=== PATIENT | female | born 1945 | race Caucasian/White ===

== ENCOUNTER 2016-11-16 00:11 | Inpatient (IN) | payer MEDICARE, OTHER ==
[~2016-11-16] VITALS: Ht 167.6 cm; Wt 91.3 kg
--- NOTE | 2016-11-16 02:18 | ERA ---
ER Documentation Chief Complaint Date/Time DATE: 11/16/16 TIME: 02:17 Chief Complaint both knee swelling x 1 day, absence of apettite since taking abx for uti HPI The patient is a 71-year-old female, presenting to the ER because of bilateral knee pain and bilateral leg pain for 1 day . She is being treated with Cipro and Flagyl for UTI according to her for 1 week. She complains of decreased appetite ever since he started taking the antibiotic. She denies fever, chills , neck pain, chest pain, dyspnea, abdominal pain, vomiting. She does not smoke nor drink Past medical history: Diabetes mellitus, hypertension Past surgical history: None ROS All systems reviewed and are negative except as per history of present illness. Medications Home Meds Reported Medications Cholecalciferol (Vitamin D) 400 Unit Tablet, 400 UNIT PO, TAB 11/16/16 Metronidazole* (Metronidazole*) 500 Mg Tablet, 500 MG PO TID, TAB 11/16/16 Metformin* (Glucophage*) 500 Mg Tab, 250 MG PO WITH BREAKFAST DINNE, #30 TAB 11/16/16 Losartan Potassium* (Losartan Potassium*) 25 Mg Tablet, 25 MG PO DAILY, TAB 11/16/16 Ciprofloxacin Hcl* (Ciprofloxacin Hcl*) 500 Mg Tablet, 500 MG PO BID for TK 1 TAB BIDFOR 10 DAYS, #14 TAB 11/16/16 Ibuprofen* (Ibuprofen*) 400 Mg Tablet, 400 MG PO Q6H Y for PAIN, TAB 11/16/16 Discontinued Reported Medications Ibuprofen* (Ibuprofen*) 400 Mg Tablet, 400 MG PO TID, TAB 11/16/16 Metronidazole* (Metronidazole*) 500 Mg Tablet, 500 MG PO TID, TAB 11/16/16 Allergies Allergies: Coded Allergies: No Known Allergy (Unverified , 11/16/16) PMhx/Soc Medical and Surgical Hx: pt denies Surgical Hx Hx Miscellaneous Medical Probl: Yes (diabetes, currently tx'd for UTI) Hx Alcohol Use: No Hx Substance Use: No Hx Tobacco Use: No Smoking Status: Unknown if ever smoked Physical Exam Vitals Vital Signs Date Time Temp Pulse Resp B/P Pulse Ox O2 Delivery O2 Flow Rate FiO2 11/16/16 04:21 81 20 121/63 99 Room Air 11/16/16 04:11 81 20 140/72 99 Room Air 11/16/16 00:20 100.0 94 20 131/66 99 Physical Exam Const: No acute distress. Head: Atraumatic. Eyes: Normal Conjunctiva. ENT: Normal External Ears, Nose and Mouth. Neck: Full range of motion. No meningismus. Resp: Clear to auscultation bilaterally. Cardio: Regular rate and rhythm, no murmurs. Abd: Soft, non distended, normal bowel sounds, bilateral CVA tenderness Skin: No petechiae or rashes. Back: No midline or flank tenderness. Ext: Bilateral leg edema, minimal calf tenderness, bilateral knee crepitus Neur: Awake and alert. No focal deficit Psych: Normal Mood and Affect. Result Diagram: 11/16/16 0135 11/16/16 013 Results 24 hrs Laboratory Tests Test 11/16/16 01:35 11/16/16 03:31 White Blood Count 13.810^3/ul Red Blood Count 4.5310^6/ul Hemoglobin 11.6g/dl Hematocrit 35.7% Mean Corpuscular Volume 78.8fl Mean Corpuscular Hemoglobin 25.6pg Mean Corpuscular Hemoglobin Concent 32.5g/dl Red Cell Distribution Width 15.9% Platelet Count 03806^3/UL Mean Platelet Volume 10.1fl Neutrophils % 82.2% Lymphocytes % 6.7% Monocytes % 9.4% Eosinophils % 0.2% Basophils % 0.2% Nucleated Red Blood Cells % 0.0/100WBC Neutrophils # 11.410^3/ul Lymphocytes # 0.910^3/ul Monocytes # 1.310^3/ul Eosinophils # 0.010^3/ul Basophils # 0.010^3/ul Nucleated Red Blood Cells # 0.010^3/ul Prothrombin Time 17.5Sec Prothrombin Time Ratio 1.4 INR International Normalized Ratio 1.43 Activated Partial Thromboplast Time 33.2Sec Sodium Level 141mmol/L Potassium Level 2.8mmol/L Chloride Level 102mmol/L Carbon Dioxide Level 27mmol/L Anion Gap 15 Blood Urea Nitrogen 9mg/dl Creatinine 0.65mg/dl Glucose Level 155mg/dl Calcium Level 8.7mg/dl Total Bilirubin 0.4mg/dl Direct Bilirubin 0.00mg/dl Indirect Bilirubin 0.4mg/dl Aspartate Amino Transf (AST/SGOT) 25IU/L Alanine Aminotransferase (ALT/SGPT) 28IU/L Alkaline Phosphatase 105IU/L Total Protein 7.5g/dl Albumin 3.4g/dl Globulin 4.10g/dl Albumin/Globulin Ratio 0.82 Lipase 110U/L Bedside Urine pH (LAB) 6.0 Bedside Urine Protein (LAB) Trace Bedside Urine Glucose (UA) Negative Bedside Urine Ketones (LAB) Negative Bedside Urine Blood Trace-intact Bedside Urine Nitrite (LAB) Negative Bedside Urine Leukocyte Esterase (L 1+ Current Medications Medications (Trade) Dose Ordered Sig/Mario Route PRN Reason Start Time Stop Time Status Last Admin Dose Admin Morphine Sulfate (morphine) 2 mg ONCE ONCE IV 11/16/16 02:30 11/16/16 02:31 DC 11/16/16 02:35 Ondansetron HCl (Zofran Inj) 4 mg ONCE STAT IV 11/16/16 02:25 11/16/16 02:28 DC 11/16/16 02:35 Potassium Chloride (Klor-Con 20) 40 meq ONCE STAT PO 11/16/16 05:10 11/16/16 05:11 DC Potassium Chloride 20 meq 20 meq ONCE STAT PO 11/16/16 05:10 11/16/16 05:11 DC Sodium Chloride 1,000 ml @ 1,000 mls/hr Q1H ONCE IV 11/16/16 05:30 11/16/16 06:29 Ceftriaxone Sodium 50 ml @ 100 mls/hr ONCE ONCE IVPB 11/16/16 05:30 11/16/16 05:59 Potassium Chloride/Sodium Chloride (KCl/NS) 110 ml @ 55 mls/hr ONCE ONCE IVPB 11/16/16 05:30 11/16/16 07:29 Procedures/[place] [id number] Radiology Main Line: [phone] DIAGNOSTIC IMAGING REPORT Patient: CRISTINA HICKEY : 1945 Age: 71 Sex: F MR #: [id number] DOS: 11/16/16224 Ordering MD: ELEANOR SAPP MD Location: E/R Room/Bed: PROCEDURE: Bilateral lower extremity Doppler CLINICAL INDICATION: Bilateral leg swelling TECHNIQUE: Clement scale, color, and pulse wave Doppler examination of the veins of both lower extremities was performed with a high frequency linear transducer. The images were reviewed on a PACS workstation. COMPARISON: None. FINDINGS: There is no evidence for deep venous thrombosis of either lower extremity. The deep veins were fully compressible and normal augmentation was seen. No Lacey's cyst was seen. No definite calf vein thrombus. Bilateral knee effusions were incidentally noted. IMPRESSION: No definite evidence for deep venous thrombosis of either lower extremity.. Bilateral knee effusions. RPTAT: HLBE Aylin Echeverria Physician Date Time Electronically viewed and signed by Aylin Echeverria Physician on 11/16/2016 05 :13 LE/ CC: ELEANOR SAPP MD [place] [id number] Radiology Main Line: [phone] DIAGNOSTIC IMAGING REPORT Patient: CRISTINA HICKEY : 1945 Age: 71 Sex: F MR #: [id number] DOS: 11/16/16 0225 Ordering MD: ELEANOR SAPP MD Location: E/R Room/Bed: PROCEDURE: XR Chest. CLINICAL INDICATION: Abdominal Pain TECHNIQUE: Portable single view of the chest COMPARISON: None. FINDINGS: Mild cardiomegaly. Atherosclerotic aorta. Top normal pulmonary vascularity. No focal infiltrate or pleural effusion. Mild degenerative change of the spine and shoulders. IMPRESSION: Mild cardiomegaly and top normal pulmonary vascularity. Aortic atherosclerosis. RPTAT: HLBE Aylin Echeverria Physician Date Time Electronically viewed and signed by Physician Kim on 11/16/2016 05 :10 LE/ CC: ELEANOR SAPP MD MEDICAL MAKING DECISION: The patient is 71-year-old female, presenting with failed outpatient therapy for cystitis. She is now presenting with acute pyelonephritis, acute hypokalemia, acute dehydration, acute bilateral lower extremity edema and pain of unclear etiology. She want to do 1 L normal saline for clinical dehydration, Rocephin 1 g IV for acute pyelonephritis, potassium chloride 60 mEq p.o. and 20 mEq IV for low potassium The differential diagnoses considered include but are not limited to pneumonia, sepsis, DVT, cellulitis Departure Diagnosis: Primary Impression: Acute pyelonephritis Additional Impressions: Acute hypokalemia Bilateral leg pain Anemia Condition: Stable Comments I discussed the findings with the patient. I discussed the patient with the on- call hospitalist Dr. Harris who was made aware of the lab, the treatment, the patient condition. The patient is admitted to medical surgery bed ELEANOR SAPP MD November 16, 2016 02:18
[2016-11-16] MEDS ORDERED: ONDANSETRON 4 MG INJ IV STA (02:25)
[2016-11-16] MEDS ORDERED: morphine 2 MG INJ IV ONE ×2 (02:30→06:30)
[2016-11-16] MEDS ORDERED: IBUP400T22 PO ×2 (02:33→02:37)
[2016-11-16] MEDS ORDERED: CIPR500T4 PO (02:33)
[2016-11-16] MEDS ORDERED: METR500T14 PO ×2 (02:33→02:37)
[2016-11-16] MEDS ORDERED: CHOL400T29 PO (02:37)
[2016-11-16] MEDS ORDERED: LOSA25TA5 PO (02:37)
[2016-11-16] MEDS ORDERED: METF500T4 PO (02:37)
[2016-11-16 02:43] LABS: ADD SCAN DIFF NO
[2016-11-16 02:46] LABS: BASOPHILS % 0.2 % (0.0-2.0); EOSINOPHILS % 0.2 % (0.0-7.0); HEMATOCRIT 35.7 % (37.0-47.0); HEMOGLOBIN 11.6 g/dl (12.0-16.0); LYMPHOCYTES # 0.9 10^3/ul (0.8-2.9); LYMPHOCYTES % 6.7 % (15.0-51.0); MEAN CORPUSCULAR HEMOGLOBIN 25.6 pg (29.0-33.0); MEAN CORPUSCULAR HGB CONC 32.5 g/dl (32.0-37.0); MEAN CORPUSCULAR VOLUME 78.8 fl (82.0-101.0); MEAN PLATELET VOLUME 10.1 fl (7.4-10.4); MONOCYTE # 1.3 10^3/ul (0.3-0.9); MONOCYTES % 9.4 % (0.0-11.0); NEUTROPHIL # 11.4 10^3/ul (1.6-7.5); NEUTROPHILS % 82.2 % (39.0-77.0); PLATELET COUNT 475 10^3/UL (140-415); RED BLOOD COUNT 4.53 10^6/ul (4.20-5.40); RED CELL DISTRIBUTION WIDTH 15.9 % (11.5-14.5); WHITE BLOOD COUNT 13.8 10^3/ul (4.8-10.8)
[2016-11-16 02:49] LABS: INR 1.43; PROTIME 17.5 Sec (12.2-14.2); PT RATIO 1.4
[2016-11-16 02:50] LABS: PARTIAL THROMBOPLASTIN TIME 33.2 Sec (25.0-35.0)
[2016-11-16 02:51] LABS: ALBUMIN 3.4 g/dl (3.3-4.9)
[2016-11-16 02:53] LABS: BILIRUBIN,INDIRECT 0.4 mg/dl (0-1.1); BILIRUBIN,TOTAL 0.4 mg/dl (0.2-1.3); CREATININE 0.65 mg/dl (0.44-1.00)
[2016-11-16 02:54] LABS: ALBUMIN/GLOBULIN RATIO 0.82; CALCIUM 8.7 mg/dl (8.4-10.2); TOTAL PROTEIN 7.5 g/dl (6.1-8.1)
[2016-11-16 03:11] LABS: POTASSIUM 2.8 mmol/L (3.5-5.1)
[2016-11-16 03:30] LABS: URINE BLOOD (Dip) POC Trace-intact (NEGATIVE)
[2016-11-16] MEDS ORDERED: POTASSIUM CHLORIDE (SR) 20 MEQ TAB PO STA ×3 (05:10→09:12)
--- NOTE | 2016-11-16 05:10 | RADRPT ---
PROCEDURE: XR Chest. CLINICAL INDICATION: Abdominal Pain TECHNIQUE: Portable single view of the chest COMPARISON: None. FINDINGS: Mild cardiomegaly. Atherosclerotic aorta. Top normal pulmonary vascularity. No focal infiltrate o r pleural effusion. Mild degenerative change of the spine and shoulders. IMPRESSION: Mild cardiomegaly and top normal pulmonary vascularity. Aortic atherosclerosis. RPTAT: HLBE Physician Kim Date Time Electronically viewed and signed by Aylin Echeverria Physician on 11/16/2016 05:10 LE/
--- NOTE | 2016-11-16 05:13 | RADRPT ---
PROCEDURE: Bilateral lower extremity Doppler CLINICAL INDICATION: Bilateral leg swelling TECHNIQUE: Clement scale, color, and pulse wave Doppler examination of the veins of both lower extrem ities was performed with a high frequency linear transducer. The images were reviewed on a PACS wor kstation. COMPARISON: None. FINDINGS: There is no evidence for deep venous thrombosis of either lower extremity. The deep veins were full y compressible and normal augmentation was seen. No Lacey's cyst was seen. No definite calf vein th rombus. Bilateral knee effusions were incidentally noted. IMPRESSION: No definite evidence for deep venous thrombosis of either lower extremity.. Bilateral knee effusion s. RPTAT: HLBE Physician Kim Date Time Electronically viewed and signed by Physician Kim on 11/16/2016 05:13 WALTER/
[2016-11-16] MEDS ORDERED: CEFTRIAXONE 1 GM/50 ML (PMX) 50 ML IVPB ONE (05:30)
[2016-11-16] MEDS ORDERED: POTASSIUM CHLORIDE 20 MEQ in SOD CHLORIDE 0.9% 100 ML IVPB ONE (05:30)
[2016-11-16] MEDS ORDERED: SOD CHLORIDE 0.9% 1,000 ML IV ONE (05:30)
[2016-11-16 06:23] VITALS: TEMP 98.9
[2016-11-16] MEDS ORDERED: morphine 4 MG/ML VIAL IV STA (07:49)
[2016-11-16] MEDS ORDERED: SOD CHLORIDE 0.9% 1,000 ML IV SCH (09:20)
[2016-11-16] MEDS ORDERED: ACETAMINOPHEN 325 MG TAB PO PRN (09:30)
[2016-11-16] MEDS ORDERED: HYDROCODONE/APAP (5/325) TAB PO PRN (09:30)
[2016-11-16] MEDS ORDERED: IBUPROFEN 400 MG TAB PO PRN (09:30)
[2016-11-16] MEDS ORDERED: BISACODYL 10 MG SUPP PR PRN (09:30)
[2016-11-16] MEDS ORDERED: MAGNESIUM HYDROXIDE 30ML CUP PO PRN (09:30)
[2016-11-16] MEDS ORDERED: ONDANSETRON 4 MG INJ IV PRN (09:30)
[2016-11-16] MEDS ORDERED: NACL 0.9% 3 ML SYG IV SCH (09:30)
[2016-11-16] MEDS ORDERED: DOCUSATE SODIUM 100 MG CAP PO PRN (09:30)
--- NOTE | 2016-11-16 09:35 | RADRPT ---
PROCEDURE: CT Abdomen and Pelvis without contrast. CLINICAL INDICATION: Abdominal pain. TECHNIQUE: Routine abdominopelvic CT was performed without intravenous contrast and reformatted in the axial, coronal, sagittal planes. Radiation dose: CTDIvol (mGy) = 20.6; total DLP mGy-cm = 1161. One or more of the following radiation dose techniques were used: -Automated exposure control. -Adjust of the mA and/or kV according to patient size. -Use of iterative reconstruction technique. COMPARISON: None. FINDINGS: Please note that this examination is limited without intravenous contrast, which may limit diagnosti c sensitivity. Steatotic changes are suggested within the liver. Gallbladder, biliary system, pancreas, adrenal gl ands, and spleen demonstrate no gross abnormality. There is a 2 mm nonobstructive calculus identified in the right kidney without obstructive uropathy. Left kidney and collecting system are grossly unremarkable. No abnormal bowel wall thickening or dilatation. No mesenteric or retroperitoneal lymphadenopathy. Pelvic viscera is within normal limit. No adnexal cyst or mass. No free fluid or fluid collection. Diastases of the rectus abdominis musculature with a small fat-containing umbilical hernia. Small hiatal hernia. IMPRESSION: 2 mm nonobstructive calculus within the right kidney without obstructive uropathy or hydronephrosis. No mass, lymphadenopathy, or focal inflammatory process. RPTAT: EE .Bladimir Kumar MD, MD Date Time Electronically viewed and signed by .Bladimir Kumar MD, MD on 11/16/2016 09:39 .C/
[2016-11-16 09:53] LABS: ADD SCAN DIFF NO
[2016-11-16 09:54] LABS: BASOPHILS % 0.1 % (0.0-2.0); EOSINOPHILS % 0.2 % (0.0-7.0); HEMATOCRIT 28.9 % (37.0-47.0); HEMOGLOBIN 9.5 g/dl (12.0-16.0); LYMPHOCYTES # 1.1 10^3/ul (0.8-2.9); LYMPHOCYTES % 8.2 % (15.0-51.0); MEAN CORPUSCULAR HEMOGLOBIN 26.1 pg (29.0-33.0); MEAN CORPUSCULAR HGB CONC 32.9 g/dl (32.0-37.0); MEAN CORPUSCULAR VOLUME 79.4 fl (82.0-101.0); MEAN PLATELET VOLUME 10.3 fl (7.4-10.4); MONOCYTE # 1.2 10^3/ul (0.3-0.9); MONOCYTES % 9.3 % (0.0-11.0); NEUTROPHIL # 10.8 10^3/ul (1.6-7.5); NEUTROPHILS % 80.9 % (39.0-77.0); PLATELET COUNT 382 10^3/UL (140-415); RED BLOOD COUNT 3.64 10^6/ul (4.20-5.40); WHITE BLOOD COUNT 13.4 10^3/ul (4.8-10.8)
[2016-11-16] MEDS ORDERED: GLUCOSE GEL 15 GRAM TUBE BUCCAL PRN (10:00)
[2016-11-16] MEDS ORDERED: DEXTROSE 50% 50 ML SYRINGE IV PRN ×2 (10:00)
[2016-11-16] MEDS ORDERED: GLUCAGON 1 MG INJ IM PRN (10:00)
[2016-11-16] MEDS ORDERED: GLUCOSE GEL 15 GRAM TUBE PO PRN ×2 (10:00)
[2016-11-16 10:13] LABS: CREATININE 0.52 mg/dl (0.44-1.00)
[2016-11-16 10:14] LABS: CALCIUM 6.8 mg/dl (8.4-10.2); MAGNESIUM 1.5 mg/dl (1.7-2.5); PHOSPHORUS 2.9 mg/dl (2.5-4.9)
[2016-11-16 10:20] LABS: POTASSIUM 2.7 mmol/L (3.5-5.1)
[2016-11-16] MEDS ORDERED: POTASSIUM CHLORIDE 250 ML IVPB ONE (11:00)
[2016-11-16] MEDS ORDERED: MAGNESIUM SULFATE 4 GM/100 ML 100 ML IVPB ONE (11:00)
[2016-11-16] MEDS: POTASSIUM CHLORIDE 40 MEQ in SOD CHLORIDE 0.9% 1,000 ML IV SCH (11:19)
[2016-11-16] MEDS: ERTAPENEM SODIUM 1 GM in SOD CHLORIDE 0.9% 100 ML IVPB SCH (11:22)
[2016-11-16] MEDS: INSULIN ASPART [NOVOLOG] 3 ML PEN SC SCH ×3 (12:05→20:12)
[2016-11-16] MEDS ORDERED: IBUPROFEN 800 MG TAB PO ONE (13:30)
--- NOTE | 2016-11-16 14:28 | RADRPT ---
PROCEDURE: XR Knees. CLINICAL INDICATION: Bilateral knee pain TECHNIQUE: 4 views of the bilateral knees are available for review. COMPARISON: None available FINDINGS: Symmetric moderate medial compartment joint space narrowing is seen bilaterally. Sac compartmental osteophyte formation is seen bilaterally as well, greater on the left. No acute fracture or disloca tion is seen. There is no radiodense foreign body. Mild bilateral suprapatellar joint effusions ar e present. Bony mineralization is normal. IMPRESSION: 1. Mild to moderate bilateral osteoarthritic degenerative changes of the knees, slightly greater on the left. 2. There are mild bilateral suprapatellar joint effusions. 3. No evidence of acute fracture or dislocation is identified. RPTAT: QQ .Luis Enrique Johnson MD, Date Time Electronically viewed and signed by .Luis Enrique Johnson MD, on 11/16/2016 14:28 .R/
[2016-11-16 15:30] VITALS: BP 128/87; PULSE 78; RESP 16
--- NOTE | 2016-11-16 17:39 | HP ---
DATE OF ADMISSION: 11/16/2016 PRIMARY CARE PHYSICIAN: Dr. Zarate. CHIEF COMPLAINT ON ADMISSION: Bilateral knee sweating. HISTORY OF PRESENT ILLNESS: This is a 71-year-old female with history of mild diabetes mellitus, cu rrently on metformin and also osteoarthritis of the knees, who apparently has been getting injection s before. She recently flew back from [place] and overnight she was having significant swelling of he r knees. The patient also reports that since 11/01/2016, therefore almost 2 weeks now, she had the diagnosis of a urinary tract infection back in [place], she got antibiotics for 5 days. After stoppin g them she was having episodes of fevers and chills. She went to an urgent care, had a UA rechecked and was told she had a urinary tract infection. She was then put on Cipro and Flagyl. She reports that she was put on Flagyl because she was having some right lower quadrant abdominal pain. She wa s also told that she had diverticulosis. She did have an episode of diarrhea earlier this week x1. After that she was having generalized weakness, decreased appetite. She reports subjective fevers, episodes of chills, along with acute swelling of her knees; she came to the emergency department. In the emergency department, she had workup done. Her CBC is slightly elevated with a white blood c ell count of 13. Her UA is still mildly positive. Urine culture is pending. Patient was noted to be hypokalemic with a potassium of 2.8. She was given a dose of KCl p.o. and IV and she was still o n the low side and being repleted currently. Her magnesium is also low. Likely this is due to the diarrhea she did have and the decreased p.o. intake over the past few days. She is feeling much bet ter currently. She was given a dose of Rocephin. Given her multiple antibiotic courses, I did put her on Invanz. She is being admitted to a medical/surgical bed. She denies any chest pain, shortne ss of breath. She denies any ongoing abdominal pain, currently she reports that it resolved prior t o this admission. Again, she complains of this knee swelling and she has known osteoarthritis of th e knees, has required injections before and claims that it did not help. She had Dopplers of the lo wer extremity in the ER which were negative for DVT, but incidentally did show joint effusions at th e knee. ALLERGIES: NO KNOWN ALLERGIES. PAST MEDICAL HISTORY: 1. Diabetes mellitus. 2. Osteoarthritis of the knees. PAST SURGICAL HISTORY: None. SOCIAL HISTORY: The patient lives at home. She does not smoke, drink alcohol, and no history of IV drug use. REVIEW OF SYSTEMS: As per HPI. OUTPATIENT MEDICATIONS: Include: 1. Ciprofloxacin 500 mg p.o. b.i.d. 2. Flagyl 500 mg p.o. t.i.d. The patient has started those 2 medications since 11/08/2016. She was supposed to take it for 2 weeks. 3. Losartan 25 mg p.o. daily. 4. Ibuprofen 400 mg p.o. q.6 hours p.r.n. knee pain. 5. Metformin 250 mg p.o. q.a.c. breakfast and dinner. 6. Vitamin D 400 units p.o. daily. PHYSICAL EXAMINATION: VITAL SIGNS: Temperature is 98.8, heart rate of 90, sinus rhythm, respiratory rate of 20, blood pre ssure 137/76, patient is saturating 96% on room air. GENERAL: She is alert and oriented x4. She is in no acute distress currently. HEENT: Pupils are equally round and reactive to light. Extraocular muscles are intact. Anicteric sclerae. NECK: No JVD, no thyromegaly noted. HEART: Regular rate and rhythm. LUNGS: Clear to auscultation bilaterally. ABDOMEN: Soft, nontender, nondistended. Bowel sounds are present and there is no tenderness to pal pation on exam, not even on the costovertebral angle area. EXTREMITIES: The patient is noted to have some edema at the knee joints bilaterally equally. No er ythema seen, slightly warm at the knee joints. Otherwise, the rest of her lower extremities are not showing any signs of edema, clubbing or cyanosis. There is no other joint effusion, not of the elb ows, the fingers, or the ankle. NEUROLOGIC: Grossly intact. LABORATORY DATA: White blood cell count is 13.4, hemoglobin 9.5, hematocrit 28.9, platelet count of 382. Chemistry with a sodium of 142, potassium 2.7, chloride 110, bicarbonate 24, BUN 7, creatinin e 0.52, glucose of 117, uric acid 3.6, calcium 6.8, magnesium 1.5, total bilirubin 0.4, AST 25, ALT 28, alkaline phosphatase 105, lipase of 110. INR is 1.43. PT 17.5, PTT 33.2. Urinalysis with 1+ l eukocyte esterase. Urine culture is pending. RADIOLOGICAL DATA: 1. Lower extremity Doppler shows no DVT and bilateral knee effusions are incidentally seen. Chest x-ray shows mild cardiomegaly and some aortic atherosclerosis. 2. CAT scan of the abdomen and pelvis without contrast shows a 2 mm nonobstructive calculus within the right kidney without obstructive uropathy or hydronephrosis. No mass, lymphadenopathy or focal inflammatory process. No abnormal bowel wall thickening. Small hiatal hernia is seen. EKG shows normal sinus rhythm, no acute ST or T-wave abnormalities. ASSESSMENT AND PLAN: This is a 71-year-old female with: 1. Generalized weakness and bilateral knee swelling and also recent treatment for urinary tract inf ection that seems to be persistent at this point. I have changed her antibiotics to Invanz for now. She is admitted to a medical/surgical bed while awaiting cultures and further titration. Will con tinue IV fluids. She feels better already. 2. Bilateral knee pain and swelling, likely secondary to osteoarthritis at this point or some form of arthritis. I will put her on some ibuprofen for anti-inflammatory and pain control. She will be referred to orthopedic surgery as an outpatient. X-ray of the knees are also pending. Will send s ome of the inflammatory arthritis markers just for workup. 3. Diabetes mellitus. Resume metformin, continue sliding scale insulin, check hemoglobin A1c in a. m., along with fasting lipid panel. 4. Hypokalemia with some hypomagnesemia, being repleted currently, she is on normal saline with pot assium in it. She is being given doses of potassium along with magnesium. Will repeat her labs lat er today at 5:00 p.m. and also in the a.m. with additional repletion as needed. 5. Leukocytosis, may be inflammatory versus infectious, awaiting cultures and again will run some o f the inflammatory markers. 6. Prophylaxis. Sequential compression devices to lower extremity for deep venous thrombosis proph ylaxis. Pepcid for gastrointestinal prophylaxis. 7. Disposition. The patient is being admitted to a medical/surgical bed. Further workup depending on clinical course. Dictated By: N'GLORIA HAMM/GILBERTO STANTON: 11/16/2016 14:02:44 Conf#: [id number] DID#: [id number]
[2016-11-16] MEDS: metFORMIN 500 MG TAB PO SCH (18:02)
[2016-11-16 18:04] LABS: POTASSIUM 3.9 mmol/L (3.5-5.1)
[2016-11-16 18:07] LABS: CREATININE 0.57 mg/dl (0.44-1.00)
[2016-11-16 18:08] LABS: CALCIUM 7.9 mg/dl (8.4-10.2)
[2016-11-16] MEDS: IBUPROFEN 600 MG TAB PO PRN (18:25)
[2016-11-16 19:52] VITALS: BP 116/63; RESP 18
[2016-11-16] MEDS: FAMOTIDINE 20 MG TAB PO SCH (20:10)
[2016-11-17] MEDS: POTASSIUM CHLORIDE 40 MEQ in SOD CHLORIDE 0.9% 1,000 ML IV SCH ×2 (00:36→03:32)
[2016-11-17] MEDS: IBUPROFEN 600 MG TAB PO PRN ×2 (02:37→08:54)
[2016-11-17 05:10] LABS: ADD SCAN DIFF NO
[2016-11-17 05:12] LABS: BASOPHILS % 0.2 % (0.0-2.0); EOSINOPHILS # 0.2 10^3/ul (0.0-0.5); EOSINOPHILS % 1.4 % (0.0-7.0); HEMATOCRIT 31.1 % (37.0-47.0); LYMPHOCYTES # 1.2 10^3/ul (0.8-2.9); LYMPHOCYTES % 9.6 % (15.0-51.0); MEAN CORPUSCULAR HEMOGLOBIN 25.6 pg (29.0-33.0); MEAN CORPUSCULAR HGB CONC 32.2 g/dl (32.0-37.0); MEAN CORPUSCULAR VOLUME 79.7 fl (82.0-101.0); MEAN PLATELET VOLUME 10.1 fl (7.4-10.4); MONOCYTE # 1.1 10^3/ul (0.3-0.9); MONOCYTES % 8.5 % (0.0-11.0); NEUTROPHIL # 9.8 10^3/ul (1.6-7.5); NEUTROPHILS % 79.1 % (39.0-77.0); PLATELET COUNT 421 10^3/UL (140-415); RED CELL DISTRIBUTION WIDTH 16.4 % (11.5-14.5); WHITE BLOOD COUNT 12.4 10^3/ul (4.8-10.8)
[2016-11-17 05:47] LABS: CALCIUM 7.8 mg/dl (8.4-10.2); CREATININE 0.56 mg/dl (0.44-1.00); MAGNESIUM 2.6 mg/dl (1.7-2.5); PHOSPHORUS 2.6 mg/dl (2.5-4.9); POTASSIUM 3.9 mmol/L (3.5-5.1)
[2016-11-17] MEDS: INSULIN ASPART [NOVOLOG] 3 ML PEN SC SCH ×4 (07:50→20:52)
[2016-11-17 08:12] VITALS: BP 131/74; RESP 17
[2016-11-17] MEDS: LOSARTAN 25 MG TAB PO SCH (08:54)
[2016-11-17] MEDS: CHOLECALCIFEROL 400 UNITS TAB PO SCH (08:54)
[2016-11-17] MEDS: metFORMIN 500 MG TAB PO SCH ×2 (08:55→17:54)
[2016-11-17] MEDS: FAMOTIDINE 20 MG TAB PO SCH ×2 (08:55→20:51)
[2016-11-17] MEDS: ERTAPENEM SODIUM 1 GM in SOD CHLORIDE 0.9% 100 ML IVPB SCH (11:00)
--- NOTE | 2016-11-17 12:18 | PN ---
Date/Time of Note Date/Time of Note DATE: 11/17/16 TIME: 11:41 Assessment/Plan VTE Prophylaxis VTE Prophylaxis Intervention: SCD's Lines/Catheters IV Catheter Type (from Nrs): Peripheral IV Urinary Cath still in place: No Assessment/Plan Assessment/Plan 71-year-old female with: 1. Generalized weakness and bilateral knee swelling and also recent treatment for urinary tract infection that seems to be persistent at this point. Feels better today. On Imipenem while awaiting urine cx D/c IVF as tolerating po Electrolytes back to normal 2. Bilateral knee pain and swelling, likely secondary to osteoarthritis at this point or some form of arthritis. Xray knees with OA knees L>R and continue Ibuprofen She will be referred to orthopedic surgery as an outpatient. RF negative with ESR 70's and Uric Acid wnl 3. Diabetes mellitus. A1c 6.8, back on metformin, continue sliding scale insulin. 4. Hypokalemia with some hypomagnesemia, resolved this AM D/c IVF BMP in AM. 5. Leukocytosis, may be inflammatory versus infectious, Awaiting urine culture. Prophylaxis. Sequential compression devices to lower extremity for deep venous thrombosis prophylaxis. Pepcid for gastrointestinal prophylaxis. Disposition. D/c plan in the next 24 to 48 Hrs depending on cx results Subjective 24 Hr Interval Summary Free Text/Dictation Patient doing Ok Still with Knee pain bilaterally Pain control Awaiting Urine cx results Exam/Review of Systems Vital Signs Vitals Vital Signs Date Time Temp Pulse Resp B/P Pulse Ox O2 Delivery O2 Flow Rate FiO2 11/17/16 08:12 98.0 75 17 131/74 98 11/16/16 15:30 Room Air Intake and Output 11/16/16 11/16/16 11/17/16 15:00 23:00 07:00 Intake Total 1140 ml 1190 ml Output Total 600 ml 800 ml Balance 540 ml 390 ml Exam Constitutional: alert, oriented, well developed Respiratory: clear to auscultation, normal air movement Cardiovascular: nl pulses, regular rate and rhythm Gastrointestinal: non-tender, soft Musculoskeletal: joint tenderness (b/l Knees L>R ), swelling (mild knee joint swelling ) Neurological: FIBERGLASS QUALITY TECHNICIAN II-XII intact, nl mental status, nl speech, nl strength Results Result Diagram: 11/17/16 0427 11/17/16 0427 Results 24 hrs Laboratory Tests Test 11/16/16 11:55 11/16/16 14:10 11/16/16 17:25 11/16/16 18:01 Bedside Glucose 148 119 Erythrocyte Sedimentation Rate 78 H C-Reactive Protein 20.0 H Rheumatoid Factor Screen NEGATIVE Sodium Level 142 Potassium Level 3.9 Chloride Level 110 Carbon Dioxide Level 23 Anion Gap 13 Blood Urea Nitrogen 8 Creatinine 0.57 Glucose Level 125 Calcium Level 7.9 L Test 11/16/16 20:09 11/17/16 02:36 11/17/16 04:27 11/17/16 08:23 Bedside Glucose 186 117 104 White Blood Count 12.4 H Red Blood Count 3.90 L Hemoglobin 10.0 L Hematocrit 31.1 L Mean Corpuscular Volume 79.7 L Mean Corpuscular Hemoglobin 25.6 L Mean Corpuscular Hemoglobin Concent 32.2 Red Cell Distribution Width 16.4 H Platelet Count 421 H Mean Platelet Volume 10.1 Neutrophils % 79.1 H Lymphocytes % 9.6 L Monocytes % 8.5 Eosinophils % 1.4 Basophils % 0.2 Nucleated Red Blood Cells % 0.0 Neutrophils # 9.8 H Lymphocytes # 1.2 Monocytes # 1.1 H Eosinophils # 0.2 Basophils # 0.0 Nucleated Red Blood Cells # 0.0 Sodium Level 141 Potassium Level 3.9 Chloride Level 112 H Carbon Dioxide Level 25 Anion Gap 8 Blood Urea Nitrogen 9 Creatinine 0.56 Glucose Level 129 Hemoglobin A1c 6.8 H Calcium Level 7.8 L Phosphorus Level 2.6 Magnesium Level 2.6 #H Medications Medications Current Medications Cholecalciferol (Vitamin D) 400 units DAILY PO Last administered on 11/17/16 08:54; Admin Dose 400 UNITS; Start 11/17/16 at 09:00 Losartan Potassium (Cozaar) 25 mg DAILY PO Last administered on 11/17/16 08:54 ; Admin Dose 25 MG; Start 11/17/16 at 09:00 Ondansetron HCl (Zofran Inj) 4 mg Q6H PRN IV NAUSEA AND/OR VOMITING; Start at 09:30 Acetaminophen (Tylenol Tab) 650 mg Q6H PRN PO PAIN LEVEL 1-3 OR FEVER; Start at 09:30 Acetaminophen/ Hydrocodone Bitart ([place] (5/325)) 1 tab Q6H PRN PO MODERATE PAIN LEVEL 4-6 Last administered on 11/16/16 10:03; Admin Dose 1 TAB; Start at 09:30 Docusate Sodium (Colace) 100 mg Q12H PRN PO CONSTIPATION; Start 11/16/16 at 09: 30 Magnesium Hydroxide (Milk Of Mag) 30 ml DAILY PRN PO CONSTIPATION; Start at 09:30 Bisacodyl (Dulcolax Supp) 10 mg DAILY PRN [place] CONSTIPATION; Start 11/16/16 at 09 :30 Famotidine (Pepcid) 20 mg Q12 PO Last administered on 11/17/16 08:55; Admin Dose 20 MG; Start 11/16/16 at 21:00 Miscellaneous Information 1 ea NOTE XX ; Start 11/16/16 at 10:00 Glucose (Glutose) 15 gm Q15M PRN PO DECREASED GLUCOSE; Start 11/16/16 at 10:00 Glucose (Glutose) 22.5 gm Q15M PRN PO DECREASED GLUCOSE; Start 11/16/16 at 10: 00 Dextrose (D50w Syringe) 25 ml Q15M PRN IV DECREASED GLUCOSE; Start 11/16/16 at 10:00 Dextrose (D50w Syringe) 50 ml Q15M PRN IV DECREASED GLUCOSE; Start 11/16/16 at 10:00 Glucagon (Glucagen) 1 mg Q15M PRN IM DECREASED GLUCOSE; Start 11/16/16 at 10:00 Glucose 15 gm 15 gm Q15M PRN BUCCAL DECREASED GLUCOSE; Start 11/16/16 at 10:00 Potassium Chloride 40 meq/ Sodium Chloride 1,020 ml @ 75 mls/hr [id number] IV Last administered on 11/17/16 03:32; Admin Dose 75 MLS/HR; Start 11/16/16 at 11 :00 Ertapenem/Sodium Chloride (Invanz/NS) 100 ml @ 200 mls/hr Q24H IVPB Last administered on 11/16/16 11:22; Admin Dose 200 MLS/HR; Start 11/16/16 at 11:00 Ibuprofen (Motrin) 600 mg Q6H PRN PO PAIN Last administered on 11/17/16 08:54 ; Admin Dose 600 MG; Start 11/16/16 at 13:30 Procedures Procedures PROCEDURE: XR Knees. CLINICAL INDICATION: Bilateral knee pain TECHNIQUE: 4 views of the bilateral knees are available for review. COMPARISON: None available FINDINGS: Symmetric moderate medial compartment joint space narrowing is seen bilaterally. Sac compartmental osteophyte formation is seen bilaterally as well , greater on the left. No acute fracture or dislocation is seen. There is no radiodense foreign body. Mild bilateral suprapatellar joint effusions are present. Bony mineralization is normal. IMPRESSION: 1. Mild to moderate bilateral osteoarthritic degenerative changes of the knees , slightly greater on the left. 2. There are mild bilateral suprapatellar joint effusions. 3. No evidence of acute fracture or dislocation is identified. RPTAT: QAMY CHAVIRA November 17, 2016 11:51
[2016-11-17] MEDS: IBUPROFEN 800 MG TAB PO SCH ×2 (12:29→20:51)
[2016-11-17 12:47] LABS: ADD UMIC YES; URINE BILIRUBIN (Dip) NEGATIVE (NEGATIVE); URINE BLOOD (Dip) TRACE (NEGATIVE); URINE COLOR LT. YELLOW (YELLOW); URINE GLUCOSE (Dip) NEGATIVE (NEGATIVE); URINE KETONES (Dip) NEGATIVE (NEGATIVE); URINE LEUKOCYTE ESTERASE (Dip) 1+ (NEGATIVE); URINE NITRITE (Dip) NEGATIVE (NEGATIVE); URINE TOTAL PROTEIN (Dip) NEGATIVE (NEGATIVE); URINE UROBILINOGEN (Dip) 0.2 E.U./dL (0.1-1.0)
[2016-11-17 13:57] LABS: BACTERIA,URINE FEW; URINE RBCS 0-2 /HPF (0)
[2016-11-17 19:54] VITALS: BP 139/68; RESP 18
[2016-11-17 22:06] VITALS: Ht 167.6 cm; Wt 91.3 kg
[2016-11-18 05:09] LABS: ADD SCAN DIFF NO
[2016-11-18 05:18] LABS: BASOPHILS % 0.2 % (0.0-2.0); EOSINOPHILS # 0.3 10^3/ul (0.0-0.5); EOSINOPHILS % 2.9 % (0.0-7.0); HEMOGLOBIN 9.9 g/dl (12.0-16.0); LYMPHOCYTES # 1.7 10^3/ul (0.8-2.9); LYMPHOCYTES % 18.2 % (15.0-51.0); MEAN CORPUSCULAR HEMOGLOBIN 25.3 pg (29.0-33.0); MEAN CORPUSCULAR HGB CONC 31.9 g/dl (32.0-37.0); MEAN CORPUSCULAR VOLUME 79.1 fl (82.0-101.0); MEAN PLATELET VOLUME 9.8 fl (7.4-10.4); MONOCYTE # 0.7 10^3/ul (0.3-0.9); MONOCYTES % 7.2 % (0.0-11.0); NEUTROPHIL # 6.6 10^3/ul (1.6-7.5); NEUTROPHILS % 70.5 % (39.0-77.0); PLATELET COUNT 483 10^3/UL (140-415); RED BLOOD COUNT 3.92 10^6/ul (4.20-5.40); RED CELL DISTRIBUTION WIDTH 16.4 % (11.5-14.5); WHITE BLOOD COUNT 9.3 10^3/ul (4.8-10.8)
[2016-11-18 05:46] LABS: ALBUMIN 2.6 g/dl (3.3-4.9)
[2016-11-18 05:47] LABS: MAGNESIUM 2.1 mg/dl (1.7-2.5); POTASSIUM 3.6 mmol/L (3.5-5.1)
[2016-11-18 05:48] LABS: CREATININE 0.54 mg/dl (0.44-1.00)
[2016-11-18 05:49] LABS: ALBUMIN/GLOBULIN RATIO 0.76; BILIRUBIN,INDIRECT 0.1 mg/dl (0-1.1); BILIRUBIN,TOTAL 0.1 mg/dl (0.2-1.3); CALCIUM 8.1 mg/dl (8.4-10.2)
[2016-11-18] MEDS: INSULIN ASPART [NOVOLOG] 3 ML PEN SC SCH ×4 (07:50→20:22)
[2016-11-18] MEDS: IBUPROFEN 800 MG TAB PO SCH ×3 (09:05→22:15)
[2016-11-18] MEDS: FAMOTIDINE 20 MG TAB PO SCH ×2 (09:05→20:22)
[2016-11-18] MEDS: metFORMIN 500 MG TAB PO SCH ×2 (09:05→18:02)
[2016-11-18] MEDS: CHOLECALCIFEROL 400 UNITS TAB PO SCH (09:05)
[2016-11-18] MEDS: LOSARTAN 25 MG TAB PO SCH (09:06)
[2016-11-18 09:16] VITALS: BP 131/72; RESP 18
[2016-11-18] MEDS: ERTAPENEM SODIUM 1 GM in SOD CHLORIDE 0.9% 100 ML IVPB SCH (10:56)
--- NOTE | 2016-11-18 13:10 | PN ---
Date/Time of Note Date/Time of Note DATE: 11/18/16 TIME: 13:09 Assessment/Plan VTE Prophylaxis VTE Prophylaxis Intervention: SCD's Lines/Catheters [facility] Saline Lock Urinary Cath still in place: No Assessment/Plan Assessment/Plan 71-year-old female with: 1. Generalized weakness and bilateral knee swelling and also recent treatment for urinary tract infection that seems to be persistent at this point. Feels better and effusion right knee much better to improved but not left knee yet. On Imipenem while awaiting urine cx 2. Bilateral knee pain and swelling, likely secondary to osteoarthritis at this point or some form of arthritis. Serologies negative so far Xray knees with OA knees L>R and continue Ibuprofen, cold compress to left knee She will be referred to orthopedic surgery as an outpatient. RF negative with ESR 70's. 3. Diabetes mellitus. A1c 6.8, back on metformin, continue sliding scale insulin. 4. Hypokalemia with some hypomagnesemia, resolved x 2 days 5. Leukocytosis, may be inflammatory versus infectious, resolved as of this AM. Awaiting final urine culture result. Prophylaxis. Sequential compression devices to lower extremity for deep venous thrombosis prophylaxis. Pepcid for gastrointestinal prophylaxis. Disposition. D/c plan in the next 24 to 48 Hrs depending on cx results and sxs resolution. Subjective 24 Hr Interval Summary Free Text/Dictation Right knee much better and able to ambulate a little more but left knee still with pain and effusion and unable to put weight on it Afebrile and WBC down to 9.3 Urine cx NGTD PT and will need Home health PT and FWW at discharge with outpatient ortho referral. Patient does not want steroid shots as has tried with no improvement before Exam/Review of Systems Vital Signs Vitals Vital Signs Date Time Temp Pulse Resp B/P Pulse Ox O2 Delivery O2 Flow Rate FiO2 11/18/16 09:16 98.0 81 18 131/72 97 11/16/16 15:30 Room Air Intake and Output 11/17/16 11/17/16 11/18/16 15:00 23:00 07:00 Intake Total 1080 ml 780 ml Output Total 1400 ml 1000 ml Balance -320 ml -220 ml Exam Constitutional: alert, obese (morbid ), oriented, well developed Respiratory: clear to auscultation, normal air movement Cardiovascular: nl pulses, regular rate and rhythm Gastrointestinal: non-tender, soft Musculoskeletal: other, swelling (left knee persistent ) Extremities: normal pulses, other (no edema, clubbing or cyanosis ) Neurological: LABOR OPERATOR II-XII intact, nl mental status, nl speech, nl strength Results Result Diagram: 11/18/16 0435 11/18/16 0435 Results 24 hrs Laboratory Tests Test 11/17/16 17:13 11/18/16 04:35 11/18/16 08:21 11/18/16 12:07 Bedside Glucose 123 109 116 White Blood Count 9.3 # Red Blood Count 3.92 L Hemoglobin 9.9 L Hematocrit 31.0 L Mean Corpuscular Volume 79.1 L Mean Corpuscular Hemoglobin 25.3 L Mean Corpuscular Hemoglobin Concent 31.9 L Red Cell Distribution Width 16.4 H Platelet Count 483 H Mean Platelet Volume 9.8 Neutrophils % 70.5 Lymphocytes % 18.2 Monocytes % 7.2 Eosinophils % 2.9 Basophils % 0.2 Nucleated Red Blood Cells % 0.0 Neutrophils # 6.6 Lymphocytes # 1.7 Monocytes # 0.7 Eosinophils # 0.3 Basophils # 0.0 Nucleated Red Blood Cells # 0.0 Sodium Level 142 Potassium Level 3.6 Chloride Level 108 Carbon Dioxide Level 26 Anion Gap 12 Blood Urea Nitrogen 8 Creatinine 0.54 Glucose Level 104 Calcium Level 8.1 L Phosphorus Level 4.0 Magnesium Level 2.1 Total Bilirubin 0.1 L Direct Bilirubin 0.00 Indirect Bilirubin 0.1 Aspartate Amino Transf (AST/SGOT) 17 Alanine Aminotransferase (ALT/SGPT) 24 Alkaline Phosphatase 88 Total Protein 6.0 L Albumin 2.6 L Globulin 3.40 H Albumin/Globulin Ratio 0.76 Medications Medications Current Medications Cholecalciferol (Vitamin D) 400 units DAILY PO Last administered on 11/18/16 09:05; Admin Dose 400 UNITS; Start 11/17/16 at 09:00 Losartan Potassium (Cozaar) 25 mg DAILY PO Last administered on 11/18/16 09:06 ; Admin Dose 25 MG; Start 11/17/16 at 09:00 Ondansetron HCl (Zofran Inj) 4 mg Q6H PRN IV NAUSEA AND/OR VOMITING; Start at 09:30 Acetaminophen (Tylenol Tab) 650 mg Q6H PRN PO PAIN LEVEL 1-3 OR FEVER; Start at 09:30 Acetaminophen/ Hydrocodone Bitart ([place] (5/325)) 1 tab Q6H PRN PO MODERATE PAIN LEVEL 4-6 Last administered on 11/16/16 10:03; Admin Dose 1 TAB; Start at 09:30 Docusate Sodium (Colace) 100 mg Q12H PRN PO CONSTIPATION; Start 11/16/16 at 09: 30 Magnesium Hydroxide (Milk Of Mag) 30 ml DAILY PRN PO CONSTIPATION; Start at 09:30 Bisacodyl (Dulcolax Supp) 10 mg DAILY PRN [place] CONSTIPATION; Start 11/16/16 at 09 :30 Famotidine (Pepcid) 20 mg Q12 PO Last administered on 11/18/16 09:05; Admin Dose 20 MG; Start 11/16/16 at 21:00 Miscellaneous Information 1 ea NOTE XX ; Start 11/16/16 at 10:00 Glucose (Glutose) 15 gm Q15M PRN PO DECREASED GLUCOSE; Start 11/16/16 at 10:00 Glucose (Glutose) 22.5 gm Q15M PRN PO DECREASED GLUCOSE; Start 11/16/16 at 10: 00 Dextrose (D50w Syringe) 25 ml Q15M PRN IV DECREASED GLUCOSE; Start 11/16/16 at 10:00 Dextrose (D50w Syringe) 50 ml Q15M PRN IV DECREASED GLUCOSE; Start 11/16/16 at 10:00 Glucagon (Glucagen) 1 mg Q15M PRN IM DECREASED GLUCOSE; Start 11/16/16 at 10:00 Glucose 15 gm 15 gm Q15M PRN BUCCAL DECREASED GLUCOSE; Start 11/16/16 at 10:00 Ertapenem/Sodium Chloride (Invanz/NS) 100 ml @ 200 mls/hr Q24H IVPB Last administered on 11/18/16 10:56; Admin Dose 200 MLS/HR; Start 11/16/16 at 11:00 Ibuprofen (Motrin) 600 mg Q6H PRN PO PAIN Last administered on 11/17/16 08:54 ; Admin Dose 600 MG; Start 11/16/16 at 13:30 AMY RESENDIZ November 18, 2016 13:10
[2016-11-18 19:23] VITALS: BP 131/67; RESP 18
[2016-11-19 06:01] LABS: ADD SCAN DIFF NO; CALCIUM 8.7 mg/dl (8.4-10.2); CREATININE 0.56 mg/dl (0.44-1.00); PHOSPHORUS 5.9 mg/dl (2.5-4.9); POTASSIUM 3.8 mmol/L (3.5-5.1)
[2016-11-19] MEDS: INSULIN ASPART [NOVOLOG] 3 ML PEN SC SCH ×4 (07:50→19:49)
[2016-11-19 07:53] VITALS: BP 148/84; RESP 18
[2016-11-19 08:01] LABS: BASOPHILS % 0.3 % (0.0-2.0); EOSINOPHILS # 0.3 10^3/ul (0.0-0.5); EOSINOPHILS % 4.1 % (0.0-7.0); HEMATOCRIT 34.2 % (37.0-47.0); HEMOGLOBIN 10.8 g/dl (12.0-16.0); LYMPHOCYTES # 1.8 10^3/ul (0.8-2.9); LYMPHOCYTES % 23.9 % (15.0-51.0); MEAN CORPUSCULAR HEMOGLOBIN 25.4 pg (29.0-33.0); MEAN CORPUSCULAR HGB CONC 31.6 g/dl (32.0-37.0); MEAN CORPUSCULAR VOLUME 80.5 fl (82.0-101.0); MEAN PLATELET VOLUME 10.2 fl (7.4-10.4); MONOCYTE # 0.6 10^3/ul (0.3-0.9); MONOCYTES % 8.6 % (0.0-11.0); NEUTROPHIL # 4.6 10^3/ul (1.6-7.5); NEUTROPHILS % 62.3 % (39.0-77.0); PLATELET COUNT 533 10^3/UL (140-415); RED BLOOD COUNT 4.25 10^6/ul (4.20-5.40); RED CELL DISTRIBUTION WIDTH 16.7 % (11.5-14.5); WHITE BLOOD COUNT 7.3 10^3/ul (4.8-10.8)
[2016-11-19] MEDS: IBUPROFEN 800 MG TAB PO SCH ×3 (09:19→19:48)
[2016-11-19] MEDS: FAMOTIDINE 20 MG TAB PO SCH ×2 (09:20→19:48)
[2016-11-19] MEDS: metFORMIN 500 MG TAB PO SCH ×2 (09:20→17:48)
[2016-11-19] MEDS: LOSARTAN 25 MG TAB PO SCH (09:20)
[2016-11-19] MEDS: CHOLECALCIFEROL 400 UNITS TAB PO SCH (09:21)
[2016-11-19] MEDS: ERTAPENEM SODIUM 1 GM in SOD CHLORIDE 0.9% 100 ML IVPB SCH (12:25)
[2016-11-19 12:53] LABS: ANA SCREEN NEGATIVE (NEGATIVE)
--- NOTE | 2016-11-19 13:26 | PN ---
Date/Time of Note Date/Time of Note DATE: 11/19/16 TIME: 13:01 Assessment/Plan VTE Prophylaxis VTE Prophylaxis Intervention: SCD's Lines/Catheters IV [facility] Type [facility] Saline Lock Urinary Cath still in place: No Assessment/Plan Assessment/Plan 71-year-old female with: 1. Generalized weakness and bilateral knee swelling and also recent treatment for urinary tract infection that seems to be persistent at this point. Feels better, effusion right knee resolved and left knee much better Able to ambulate now and d/c plan to tomorrow post abx given Urine cx NGTD 2. Bilateral knee pain and swelling, likely secondary to osteoarthritis at this point or some form of arthritis. Serologies negative so far. Resolving sxs Xray knees with OA knees L>R and continue Ibuprofen, cold compress to left knee and plan to give tapering dose of Ibuprofen at discharge because I am still suspecting patient had a gouty attack Patient does not want Naproxen She will be referred to orthopedic surgery as an outpatient. RF, LEONIDAS negative and Uric Acid low. 3. Diabetes mellitus. A1c 6.8, back on metformin, continue sliding scale insulin. 4. Hypokalemia with some hypomagnesemia, resolved x 2 days 5. Leukocytosis, may be inflammatory versus infectious, resolved x 2 days. Prophylaxis. Sequential compression devices to lower extremity for deep venous thrombosis prophylaxis. Pepcid for gastrointestinal prophylaxis. Disposition. D/c tomorrow after abx given. Subjective 24 Hr Interval Summary Free Text/Dictation Patient feeling much better today She denies hx of Gout but course of sxs were likely consistent with acute gout, all sxs resolving so ar with high dose NSAIDs will pln to d/c on a taper by tomorrow Exam/Review of Systems Vital Signs Vitals Vital Signs Date Time Temp Pulse Resp B/P Pulse Ox O2 Delivery O2 Flow Rate FiO2 11/19/16 07:53 97.6 72 18 148/84 98 11/16/16 15:30 Room Air Intake and Output 11/18/16 11/18/16 11/19/16 15:00 23:00 07:00 Intake Total 1100 ml 880 ml Balance 1100 ml 880 ml Exam Constitutional: alert, oriented, well developed Respiratory: clear to auscultation, normal air movement Cardiovascular: nl pulses, regular rate and rhythm Gastrointestinal: non-tender, soft Musculoskeletal: joint tenderness (residual pain and effusion left knee, all other joints back to baseline ), nl extremities to inspection Extremities: normal pulses, other (no edema, clubbing or cyanosis ) Neurological: PLACEMENT INTERVIEWER II-XII intact, nl mental status, nl speech, nl strength Results Result Diagram: 11/19/16 0425 11/19/16 0425 Results 24 hrs Laboratory Tests Test 11/18/16 14:20 11/18/16 16:00 11/18/16 17:14 11/19/16 04:25 Uric Acid 2.3 L Erythrocyte Sedimentation Rate 94 H Bedside Glucose 149 White Blood Count 7.3 # Red Blood Count 4.25 Hemoglobin 10.8 L Hematocrit 34.2 L Mean Corpuscular Volume 80.5 L Mean Corpuscular Hemoglobin 25.4 L Mean Corpuscular Hemoglobin Concent 31.6 L Red Cell Distribution Width 16.7 H Platelet Count 533 H Mean Platelet Volume 10.2 Neutrophils % 62.3 Lymphocytes % 23.9 Monocytes % 8.6 Eosinophils % 4.1 Basophils % 0.3 Nucleated Red Blood Cells % 0.0 Neutrophils # 4.6 Lymphocytes # 1.8 Monocytes # 0.6 Eosinophils # 0.3 Basophils # 0.0 Nucleated Red Blood Cells # 0.0 Sodium Level 140 Potassium Level 3.8 Chloride Level 107 Carbon Dioxide Level 27 Anion Gap 10 Blood Urea Nitrogen 9 Creatinine 0.56 Glucose Level 117 Calcium Level 8.7 Phosphorus Level 5.9 H Magnesium Level 2.0 Test 11/19/16 08:14 11/19/16 12:29 Bedside Glucose 107 126 Medications Medications Current Medications Cholecalciferol (Vitamin D) 400 units DAILY PO Last administered on 11/19/16 09:21; Admin Dose 400 UNITS; Start 11/17/16 at 09:00 Losartan Potassium (Cozaar) 25 mg DAILY PO Last administered on 11/19/16 09:20 ; Admin Dose 25 MG; Start 11/17/16 at 09:00 Ondansetron HCl (Zofran Inj) 4 mg Q6H PRN IV NAUSEA AND/OR VOMITING; Start at 09:30 Acetaminophen (Tylenol Tab) 650 mg Q6H PRN PO PAIN LEVEL 1-3 OR FEVER; Start at 09:30 Acetaminophen/ Hydrocodone Bitart ([place] (5/325)) 1 tab Q6H PRN PO MODERATE PAIN LEVEL 4-6 Last administered on 11/16/16 10:03; Admin Dose 1 TAB; Start at 09:30 Docusate Sodium (Colace) 100 mg Q12H PRN PO CONSTIPATION; Start 11/16/16 at 09: 30 Magnesium Hydroxide (Milk Of Mag) 30 ml DAILY PRN PO CONSTIPATION; Start at 09:30 Bisacodyl (Dulcolax Supp) 10 mg DAILY PRN [place] CONSTIPATION; Start 11/16/16 at 09 :30 Famotidine (Pepcid) 20 mg Q12 PO Last administered on 11/19/16 09:20; Admin Dose 20 MG; Start 11/16/16 at 21:00 Miscellaneous Information 1 ea NOTE XX ; Start 11/16/16 at 10:00 Glucose (Glutose) 15 gm Q15M PRN PO DECREASED GLUCOSE; Start 11/16/16 at 10:00 Glucose (Glutose) 22.5 gm Q15M PRN PO DECREASED GLUCOSE; Start 11/16/16 at 10: 00 Dextrose (D50w Syringe) 25 ml Q15M PRN IV DECREASED GLUCOSE; Start 11/16/16 at 10:00 Dextrose (D50w Syringe) 50 ml Q15M PRN IV DECREASED GLUCOSE; Start 11/16/16 at 10:00 Glucagon (Glucagen) 1 mg Q15M PRN IM DECREASED GLUCOSE; Start 11/16/16 at 10:00 Glucose 15 gm 15 gm Q15M PRN BUCCAL DECREASED GLUCOSE; Start 11/16/16 at 10:00 Ertapenem/Sodium Chloride (Invanz/NS) 100 ml @ 200 mls/hr Q24H IVPB Last administered on 11/19/16 12:25; Admin Dose 200 MLS/HR; Start 11/16/16 at 11:00 Ibuprofen (Motrin) 600 mg Q6H PRN PO PAIN Last administered on 11/17/16 08:54 ; Admin Dose 600 MG; Start 11/16/16 at 13:30 Ibuprofen (Motrin) 800 mg TID PO Last administered on 11/19/16 12:24; Admin Dose 800 MG; Start 11/18/16 at 17:00; Stop 11/20/16 at 09:01 AMY RESENDIZ November 19, 2016 13:26
[2016-11-19 19:46] VITALS: BP 138/71; RESP 17
[2016-11-20 05:38] LABS: CALCIUM 8.8 mg/dl (8.4-10.2); CREATININE 0.58 mg/dl (0.44-1.00); POTASSIUM 4.3 mmol/L (3.5-5.1)
[2016-11-20 07:00] VITALS: BP 146/81; RESP 16
[2016-11-20] MEDS: INSULIN ASPART [NOVOLOG] 3 ML PEN SC SCH (07:50)
[2016-11-20] MEDS: CHOLECALCIFEROL 400 UNITS TAB PO SCH (08:35)
[2016-11-20] MEDS: FAMOTIDINE 20 MG TAB PO SCH (08:35)
[2016-11-20] MEDS: IBUPROFEN 800 MG TAB PO SCH (08:35)
[2016-11-20] MEDS: LOSARTAN 25 MG TAB PO SCH (08:36)
[2016-11-20] MEDS: metFORMIN 500 MG TAB PO SCH (08:36)
[2016-11-20] MEDS ORDERED: IBUPROFEN 800 MG TAB PO SCH ×2 (09:00→21:00)
[2016-11-20] MEDS: ERTAPENEM SODIUM 1 GM in SOD CHLORIDE 0.9% 100 ML IVPB SCH (11:18)
--- NOTE | 2016-11-20 12:54 | PDOCDIS ---
Discharge Instructions CONDITION Patient Condition: Stable HOME CARE INSTRUCTIONS: Special Diet: ADA diet ACTIVITY: Activity Restrictions: Slowly Increase Activity FOLLOW UP/APPOINTMENTS Appointments Outpatient PT PCP within 1 to 2 weeks, patient wants to change her PCP to Dr Montesinos if possible AMY RESENDIZ November 20, 2016 12:54
[2016-11-20] MEDS ORDERED: IBUP800T25 PO (13:03)
--- NOTE | 2016-11-20 13:11 | PN ---
Date/Time of Note Date/Time of Note DATE: 11/20/16 TIME: 13:05 Assessment/Plan VTE Prophylaxis VTE Prophylaxis Intervention: SCD's Lines/Catheters IV Catheter Type (from Nrs): Saline Lock Urinary Cath still in place: No Assessment/Plan Assessment/Plan 71-year-old female with: 1. Generalized weakness and bilateral knee swelling and also recent treatment for urinary tract infection that seems to be persistent at this point. Feels better, effusion right knee resolved and left knee almost resolved too with much less pain Able to ambulate now and d/c home today and resume outpatient PT Follow up with PCP and referral to outpatient orhto for severe bilateral OA Urine cx negative 2. Bilateral knee pain and swelling, likely secondary to osteoarthritis at this point or some form of arthritis. Serologies negative so far. Resolving sxs Xray knees with OA knees L>R and continue Ibuprofen, cold compress to left knee and plan to give tapering dose of Ibuprofen today because I am still suspecting patient had a gouty attack Patient does not want Naproxen She will be referred to orthopedic surgery as an outpatient. RF, LEONIDAS negative and Uric Acid low. 3. Diabetes mellitus. A1c 6.8, back on metformin, continue sliding scale insulin. 4. Hypokalemia with some hypomagnesemia, resolved 5. Leukocytosis, may be inflammatory versus infectious, resolved. Prophylaxis. Sequential compression devices to lower extremity for deep venous thrombosis prophylaxis. Resume Protonix at home. Disposition. D/c home with outpatient PT and follow up with PCP within 1 to 2 weeks. Subjective 24 Hr Interval Summary Free Text/Dictation Patient doing well S/p 5 days of IV abx for ? UTI NO pyelonephritis OA vs acute gout attack resolved Exam/Review of Systems Vital Signs Vitals Vital Signs Date Time Temp Pulse Resp B/P Pulse Ox O2 Delivery O2 Flow Rate FiO2 11/20/16 07:00 97.8 89 16 146/81 98 11/16/16 15:30 Room Air Intake and Output 11/19/16 11/19/16 11/20/16 15:00 23:00 07:00 Intake Total 100 ml 720 ml 500 ml Balance 100 ml 720 ml 500 ml Exam Constitutional: alert, obese, oriented, well developed Respiratory: clear to auscultation, normal air movement Cardiovascular: nl pulses, regular rate and rhythm Gastrointestinal: non-tender, soft Musculoskeletal: joint tenderness (left knee pain and swelling much improved), nl extremities to inspection, other (no edema, clubbing or cyanosis ) Extremities: normal pulses, other (no edema, clubbing or cynosis ) Neurological: SASH MAKER II-XII intact, nl mental status, nl speech, nl strength Results Result Diagram: 11/19/16 0425 11/20/16 0445 Results 24 hrs Laboratory Tests Test 11/19/16 17:32 11/19/16 19:47 11/20/16 04:35 11/20/16 04:45 Bedside Glucose 97 117 Magnesium Level 2.1 Sodium Level 139 Potassium Level 4.3 Chloride Level 106 Carbon Dioxide Level 28 Anion Gap 9 Blood Urea Nitrogen 11 Creatinine 0.58 Glucose Level 106 Calcium Level 8.8 Test 11/20/16 08:34 Bedside Glucose 108 Medications Medications Current Medications Cholecalciferol (Vitamin D) 400 units DAILY PO Last administered on 11/20/16 08:35; Admin Dose 400 UNITS; Start 11/17/16 at 09:00 Losartan Potassium (Cozaar) 25 mg DAILY PO Last administered on 11/20/16 08:36 ; Admin Dose 25 MG; Start 11/17/16 at 09:00 Ondansetron HCl (Zofran Inj) 4 mg Q6H PRN IV NAUSEA AND/OR VOMITING; Start at 09:30 Acetaminophen (Tylenol Tab) 650 mg Q6H PRN PO PAIN LEVEL 1-3 OR FEVER; Start at 09:30 Acetaminophen/ Hydrocodone Bitart ([place] (5/325)) 1 tab Q6H PRN PO MODERATE PAIN LEVEL 4-6 Last administered on 11/16/16 10:03; Admin Dose 1 TAB; Start at 09:30 Docusate Sodium (Colace) 100 mg Q12H PRN PO CONSTIPATION; Start 11/16/16 at 09: 30 Magnesium Hydroxide (Milk Of Mag) 30 ml DAILY PRN PO CONSTIPATION; Start at 09:30 Bisacodyl (Dulcolax Supp) 10 mg DAILY PRN [place] CONSTIPATION; Start 11/16/16 at 09 :30 Famotidine (Pepcid) 20 mg Q12 PO Last administered on 11/20/16 08:35; Admin Dose 20 MG; Start 11/16/16 at 21:00 Miscellaneous Information 1 ea NOTE XX ; Start 11/16/16 at 10:00 Glucose (Glutose) 15 gm Q15M PRN PO DECREASED GLUCOSE; Start 11/16/16 at 10:00 Glucose (Glutose) 22.5 gm Q15M PRN PO DECREASED GLUCOSE; Start 11/16/16 at 10: 00 Dextrose (D50w Syringe) 25 ml Q15M PRN IV DECREASED GLUCOSE; Start 11/16/16 at 10:00 Dextrose (D50w Syringe) 50 ml Q15M PRN IV DECREASED GLUCOSE; Start 11/16/16 at 10:00 Glucagon (Glucagen) 1 mg Q15M PRN IM DECREASED GLUCOSE; Start 11/16/16 at 10:00 Glucose 15 gm 15 gm Q15M PRN BUCCAL DECREASED GLUCOSE; Start 11/16/16 at 10:00 Ertapenem/Sodium Chloride (Invanz/NS) 100 ml @ 200 mls/hr Q24H IVPB Last administered on 11/20/16 11:18; Admin Dose 200 MLS/HR; Start 11/16/16 at 11:00 Ibuprofen (Motrin) 600 mg Q6H PRN PO PAIN Last administered on 11/17/16 08:54 ; Admin Dose 600 MG; Start 11/16/16 at 13:30 Ibuprofen (Motrin) 800 mg BID PO ; Start 11/20/16 at 21:00 AMY RESENDIZ November 20, 2016 13:11
== END 2016-11-20 15:04 | disposition home or self-care (01) | DRG 565 ==
LOC: E/R 00:11 → MS1 05:38 → OBSVTOIN 11-18 13:13
PROVIDERS: ADMIT Internal Medicine; ATTEND Internal Medicine
DX: M25.461 Effusion, right knee (principal); N10 Acute pyelonephritis; D64.9 Anemia, unspecified; E11.9 Type 2 diabetes mellitus without complications; E83.42 Hypomagnesemia; M10.062 Idiopathic gout, left knee; M17.0 Bilateral primary osteoarthritis of knee; E86.0 Dehydration; E87.6 Hypokalemia; M25.462 Effusion, left knee; Z79.4 Long term (current) use of insulin
CPT/HCPCS: 36415; 71010; 74176; 80048; 80053; 81001; 81003; 82962; 83036; 83690; 83735; 84100; 84560; 85025; 85610; 85651; 85730; 86038; 86140; 86430; 87086; 93970; 96365; 96366; 96368; 96372; 96375; 96376; 97110; 97162; 97530; G0378; J0696; J1335; J1815; J2270; J2405; J3480; J7030

== ENCOUNTER → 2016-12-18 | Outpatient (CLI) | payer MEDICARE, OTHER ==
[~2016-12-18] MED LIST: CHOL400T29 PO; IBUP400T22 PO; IBUP800T25 PO; LOSA25TA5 PO; METF500T4 PO
[2016-12-18 08:27] LABS: ADD SCAN DIFF NO
[2016-12-18 08:39] LABS: BASOPHILS % 0.5 % (0.0-2.0); EOSINOPHILS # 0.3 10^3/ul (0.0-0.5); EOSINOPHILS % 3.8 % (0.0-7.0); HEMATOCRIT 35.7 % (37.0-47.0); HEMOGLOBIN 11.2 g/dl (12.0-16.0); LYMPHOCYTES # 2.2 10^3/ul (0.8-2.9); LYMPHOCYTES % 26.4 % (15.0-51.0); MEAN CORPUSCULAR HEMOGLOBIN 25.2 pg (29.0-33.0); MEAN CORPUSCULAR HGB CONC 31.4 g/dl (32.0-37.0); MEAN CORPUSCULAR VOLUME 80.4 fl (82.0-101.0); MEAN PLATELET VOLUME 10.1 fl (7.4-10.4); MONOCYTE # 0.5 10^3/ul (0.3-0.9); MONOCYTES % 6.2 % (0.0-11.0); NEUTROPHIL # 5.1 10^3/ul (1.6-7.5); NEUTROPHILS % 61.9 % (39.0-77.0); PLATELET COUNT 297 10^3/UL (140-415); RED BLOOD COUNT 4.44 10^6/ul (4.20-5.40); RED CELL DISTRIBUTION WIDTH 15.9 % (11.5-14.5); WHITE BLOOD COUNT 8.2 10^3/ul (4.8-10.8)
[2016-12-18 09:04] LABS: CALCIUM 9.6 mg/dl (8.4-10.2); CHOL/HDL RATIO 7.1 RATIO; CREATININE 0.68 mg/dl (0.44-1.00); POTASSIUM 4.2 mmol/L (3.5-5.1)
[2016-12-18 13:40] LABS: ADD UMIC YES; URINE BILIRUBIN (Dip) NEGATIVE (NEGATIVE); URINE BLOOD (Dip) TRACE (NEGATIVE); URINE COLOR LT. YELLOW (YELLOW); URINE GLUCOSE (Dip) NEGATIVE (NEGATIVE); URINE KETONES (Dip) NEGATIVE (NEGATIVE); URINE LEUKOCYTE ESTERASE (Dip) 2+ (NEGATIVE); URINE NITRITE (Dip) POSITIVE (NEGATIVE); URINE TOTAL PROTEIN (Dip) NEGATIVE (NEGATIVE); URINE UROBILINOGEN (Dip) 0.2 E.U./dL (0.1-1.0)
[2016-12-18 13:51] LABS: BACTERIA,URINE MANY
== END | disposition home or self-care (01) ==
LOC: LAB 07:33
PROVIDERS: ATTEND Internal Medicine
DX: N39.0 Urinary tract infection, site not specified (principal); E11.9 Type 2 diabetes mellitus without complications; E78.5 Hyperlipidemia, unspecified
CPT/HCPCS: 80048; 80061; 81001; 85025; 87086

== ENCOUNTER 2016-12-21 17:00 | Inpatient (IN) | payer MEDICARE, OTHER ==
[~2016-12-21] VITALS: Ht 167.6 cm; Wt 88.3 kg
[2016-12-21] MEDS ORDERED: ZOLPIDEM 5 MG TAB PO PRN (20:00)
[2016-12-21] MEDS: SOD CHLORIDE 0.45% 1,000 ML IV SCH (20:00)
[2016-12-21 20:53] VITALS: BP 118/66; RESP 18
[2016-12-21] MEDS: MEROPENEM 500 MG/100 ML (PMX) 100 ML IVPB SCH (21:46)
[2016-12-21] MEDS: GABAPENTIN 100 MG CAP PO SCH (21:47)
[2016-12-22] MEDS: MEROPENEM 500 MG/100 ML (PMX) 100 ML IVPB SCH ×3 (05:46→21:17)
[2016-12-22 07:30] VITALS: BP 119/63; RESP 16
[2016-12-22] MEDS: SOD CHLORIDE 0.45% 1,000 ML IV SCH ×2 (07:30→23:33)
[2016-12-22] MEDS: metFORMIN 500 MG TAB PO SCH (08:40)
[2016-12-22] MEDS: GABAPENTIN 100 MG CAP PO SCH ×3 (08:40→20:00)
[2016-12-22] MEDS: ENOXAPARIN 30 MG/0.3 ML SYG SC SCH (08:41)
[2016-12-22] MEDS ORDERED: FENO200 PO (09:42)
[2016-12-22] MEDS ORDERED: GABA100C14 PO (09:43)
[2016-12-22] MEDS ORDERED: OMEP40CA6 PO (09:43)
[2016-12-22] MEDS ORDERED: MELO7.5O PO (09:46)
[2016-12-22] MEDS ORDERED: MULT-761 PO (09:47)
[2016-12-22] MEDS ORDERED: LOSARTAN 25 MG TAB PO SCH (10:00)
[2016-12-22] MEDS ORDERED: metFORMIN 500 MG TAB PO SCH (10:00)
[2016-12-22] MEDS: CHOLECALCIFEROL 2,000 UNIT CAP PO SCH (11:26)
[2016-12-22] MEDS: MULTIVITAMINS THERAPEUTIC TAB PO SCH (11:26)
[2016-12-22] MEDS: LOSARTAN 25 MG TAB PO SCH (11:27)
[2016-12-22] MEDS ORDERED: GABAPENTIN 100 MG CAP PO SCH (13:00)
[2016-12-22] MEDS: MELOXICAM 15 MG TAB PO SCH (13:14)
[2016-12-22] MEDS: ACETAMINOPHEN 500 MG TAB PO PRN (20:00)
--- NOTE | 2016-12-22 20:39 | HP ---
DATE OF ADMISSION: 12/21/2016 HISTORY OF PRESENT ILLNESS: The patient is a 71-year-old lady who was recently hospitalized at [facility] in November 2016 with pyelonephritis and she has had ongoing infection of the urinary tra ct, when she visited [facility] 2 months back, when she was placed on antibiotics. She was again taking Flagyl and Cipro after she went to an urgent care. When she was admitted on 11/16/2016, she was giv en Rocephin followed by imipenem. The patient, after discharge, has been having recurrent pain in t he flanks and she had been placed on a course of Bactrim with no improvement. The repeat culture gr ew E. coli ESBL. Therefore, patient was admitted for failed outpatient treatment for UTI. REVIEW OF SYSTEMS: HEAD: No history of headaches, focal weakness, or numbness. EYES: No blurry vision, no glaucoma. EARS, NOSE, THROAT: Noncontributory. NECK: No history of thyroid disease. CHEST: No bronchitis, hay fever, or asthma. The patient does not smoke. CARDIOVASCULAR: No PND, orthopnea, palpitations. GASTROINTESTINAL: No constipation, diarrhea, change in bowel habits. GENITOURINARY: As above. No history of kidney stones. MUSCULOSKELETAL: History of DJD of both knees. MEDICATIONS: Include: 1. Losartan 25 mg daily. 2. Metformin 500 mg daily. 3. Vitamin D 2000 units daily. 4. Omeprazole 40 mg p.o. daily. FAMILY HISTORY: Noncontributory. PHYSICAL EXAMINATION: GENERAL: The patient is an average-built female, very pleasant, presently in no acute distress, com plaining of mild right flank pain. VITAL SIGNS: Temperature 97.9, blood pressure 118/66, respiratory rate 20 per minute, O2 sats 98%. HEENT: Head normocephalic. No pallor, cyanosis, or icterus. Tongue is moist. NECK: Supple. No thyromegaly, bruits, or lymphadenopathy. LUNGS: Clinically clear. HEART: S1, S2 with no definite gallops. ABDOMEN: Soft, nontender. No hepatosplenomegaly. Mild tenderness in the right flank. EXTREMITIES: No edema. Homans sign is negative. NEUROLOGIC: No localizing or lateralizing signs. LABORATORY DATA: WBC count 8.8, hematocrit 33.5, platelet count 256,000. BUN 19, creatinine 0.6. Hemoglobin A1c is 6.8. Magnesium 2.1. Triglyceride 420, cholesterol 200, LDL 88. IMPRESSION: 1. Urinary tract infection, recurrent, with Escherichia coli extended-spectrum beta-lactamase. 2. Nonobstructive calculus in the right kidney per CAT scan done about a month ago. 3. Hypertension. 4. Diabetes mellitus type 2. PLAN: Will continue imipenem and discuss with Dr. Bergeron. The patient also has significant hypertrig lyceridemia. Will start the patient on fenofibrate, which she had been on before. Dictated By: OLGA LAMBERT MD SR/NTS Conf#: [id number] DID#: [id number]
[2016-12-22 20:50] VITALS: BP 126/61; RESP 18
[2016-12-22 22:58] LABS: ADD UMIC YES; UR BILIRUBIN (Dip) NEGATIVE (NEGATIVE); UR BLOOD (Dip) TRACE (NEGATIVE); UR CLARITY CLEAR (CLEAR); UR COLOR LT. YELLOW (YELLOW); UR GLUCOSE (Dip) NEGATIVE (NEGATIVE); UR KETONES (Dip) NEGATIVE (NEGATIVE); UR LEUKOCYTE ESTERASE (Dip) 2+ (NEGATIVE); UR NITRITE (Dip) NEGATIVE (NEGATIVE); UR TOTAL PROTEIN (Dip) NEGATIVE (NEGATIVE); UR UROBILINOGEN (Dip) 0.2 E.U./dL (0.1-1.0)
[2016-12-22 23:14] LABS: URINE RBCS 0-2 /HPF (0)
[2016-12-23] MEDS: MEROPENEM 500 MG/100 ML (PMX) 100 ML IVPB SCH ×3 (05:51→22:00)
[2016-12-23 08:07] VITALS: BP 143/64; RESP 16
[2016-12-23] MEDS: metFORMIN 500 MG TAB PO SCH (08:35)
[2016-12-23] MEDS: GABAPENTIN 100 MG CAP PO SCH ×3 (08:38→21:00)
[2016-12-23] MEDS: MELOXICAM 15 MG TAB PO SCH (08:38)
[2016-12-23] MEDS: ACETAMINOPHEN 500 MG TAB PO PRN ×3 (08:38→21:07)
[2016-12-23] MEDS: MULTIVITAMINS THERAPEUTIC TAB PO SCH (08:39)
[2016-12-23] MEDS: FENOFIBRATE 145 MG TAB PO SCH (08:39)
[2016-12-23] MEDS: ENOXAPARIN 30 MG/0.3 ML SYG SC SCH (08:41)
[2016-12-23] MEDS: LOSARTAN 25 MG TAB PO SCH (08:42)
[2016-12-23] MEDS: CHOLECALCIFEROL 2,000 UNIT CAP PO SCH (09:02)
--- NOTE | 2016-12-23 09:52 | PN ---
DATE: 12/23/2016 SUBJECTIVE: The patient has no flank pain today, mild dysuria. No fever or chills. Appetite is go od. PHYSICAL EXAMINATION: GENERAL: The patient is afebrile. VITAL SIGNS: Temperature ____, blood pressure 142/64, O2 sats 94%. CHEST: Clinically clear. No CVA tenderness. EXTREMITIES: No edema. LABORATORY DATA: Urine done yesterday shows positive for leukocyte esterase 2+, WBCs 25 to 50. Uri ne culture is pending. IMPRESSION: 1. Urinary tract infection with Escherichia coli extended-spectrum beta-lactamase ____. 2. Nonobstructive calculus in the right kidney. 3. Hypertension. 4. Diabetes mellitus type 2, well controlled. PLAN: Will continue imipenem. Await urine cultures. We will request ID consult from Dr. Bergeron. Dictated By: OLGA LAMBERT MD, SR/GILBERTO Conf#: [id number] DID#: [id number]
[2016-12-23] MEDS: SOD CHLORIDE 0.45% 1,000 ML IV SCH ×2 (12:00→13:56)
[2016-12-23] MEDS ORDERED: BARIUM SULF 2% 450 ML BTL (BERRY SMOOTHIE) PO ONE (13:00)
[2016-12-23 13:17] VITALS: Ht 167.6 cm; Wt 88.3 kg
--- NOTE | 2016-12-23 13:19 | CONS ---
Date/Time of Note Date/Time of Note DATE: 12/23/16 TIME: 13:08 Assessment/Plan Assessment/Plan Chief Complaint/Hosp Course 1) UTI with e.coli +ESBL on merrem, will have lab check sensi to fosfomycin and if sensitive then would change to po fosfomycin tomorrow doubt she has pyelo but fosfomycin does get into the kidneys pt advice on need for frequent urination in light of the fact that she gets loose stools if pt gets another uti with the same organism then will need to check if stone is still present and if so then ultrasonic pulverization would be adviced Problems: Consultation Date/Type/Reason Admit Date/Time Dec 21, 2016 at 17:00 Date of Consultation: Dec 23, 2016 Type of Consultation: ID Hx of Present Illness pt has recurrent uti since november 2016 She had some dysuria in november but not currently She gets periodic back pain for years and 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 but she is not sure if it is not her regular back pain She denies F, C, NS No N, V she does get periodic watery stools no rashes she states she got knee joint pains with swelling when she was on cipro in the recent past Past Medical History borderline DM, HTN, DJD Exam/Review of Systems Vital Signs Vitals Vital Signs Date Time Temp Pulse Resp B/P Pulse Ox O2 Delivery O2 Flow Rate FiO2 12/23/16 08:07 97.6 74 16 143/64 94 Intake and Output 12/22/16 12/22/16 12/23/16 15:00 23:00 07:00 Intake Total 100 ml 1775 ml 1455 ml Balance 100 ml 1775 ml 1455 ml Exam Constitutional: alert, oriented Head: normocephalic Eyes: nl sclera ENMT: mucosa pink and moist Respiratory: clear to auscultation Cardiovascular: regular rate and rhythm Gastrointestinal: non-tender, other (no CVAT), soft Extremities: other (no swelling to LE) Neurological: other (non focal) Results Results 24 hrs Laboratory Tests Test 12/22/16 21:30 Urine Color LT. YELLOW Urine Clarity CLEAR Urine pH 5.0 Urine Specific [place]am 1.010 Urine Ketones NEGATIVE Urine Nitrite NEGATIVE Urine Bilirubin NEGATIVE Urine Urobilinogen 0.2 E.U./dL Urine Leukocyte Esterase 2+ H Urine Microscopic RBC 0-2 Urine Microscopic WBC 25-50 Urine Epithelial Cells OCCASIONAL Urine Hemoglobin TRACE Urine Glucose NEGATIVE Urine Total Protein NEGATIVE Medications Medications Current Medications Sodium Chloride 1,000 ml @ 75 mls/hr [id number] IV Last administered on 23:33; Admin Dose 75 MLS/HR; Start 12/21/16 at 20:00 Meropenem (Merrem 500 Mg/ 100 ml (Pmx)) 100 ml @ 200 mls/hr Q8 IVPB Last administered on 12/23/16 05:51; Admin Dose 200 MLS/HR; Start 12/21/16 at 22:00 Acetaminophen (Tylenol Tab) 500 mg Q4H PRN PO PAIN/TEMP.=OR ABOVE 101F Last administered on 12/23/16 08:38; Admin Dose 500 MG; Start 12/21/16 at 20:00 Zolpidem Tartrate (Ambien) 5 mg HS PRN PO INSOMNIA; Start 12/21/16 at 20:00 Losartan Potassium (Cozaar) 25 mg DAILY PO Last administered on 12/23/16 08:42 ; Admin Dose 25 MG; Start 12/22/16 at 09:00 Gabapentin (Neurontin) 100 mg TID PO Last administered on 12/23/16 08:38; Admin Dose 100 MG; Start 12/21/16 at 21:00 Enoxaparin Sodium (Lovenox) 30 mg DAILY SC Last administered on 12/23/16 08:41 ; Admin Dose 30 MG; Start 12/22/16 at 09:00 Cholecalciferol (Vitamin D) 2,000 unit DAILY PO Last administered on 12/23/16 09:02; Admin Dose 2,000 UNIT; Start 12/22/16 at 12:00 Multivitamins Therapeutic (Theragran) 1 tab DAILY PO Last administered on 08:39; Admin Dose 1 TAB; Start 12/22/16 at 10:00 Meloxicam (Mobic) 15 mg DAILY PO Last administered on 12/23/16 08:38; Admin Dose 15 MG; Start 12/22/16 at 12:00 Fenofibrate (Tricor) 145 mg DAILY PO Last administered on 12/23/16 08:39; Admin Dose 145 MG; Start 12/23/16 at 09:00 ROGERIO BRAN MD Dec 23, 2016 13:19
[2016-12-23 13:35] LABS: ADD SCAN DIFF NO
[2016-12-23 13:36] LABS: BASOPHILS % 0.3 % (0.0-2.0); EOSINOPHILS # 0.3 10^3/ul (0.0-0.5); EOSINOPHILS % 4.1 % (0.0-7.0); HEMATOCRIT 35.1 % (37.0-47.0); HEMOGLOBIN 11.2 g/dl (12.0-16.0); LYMPHOCYTES # 1.8 10^3/ul (0.8-2.9); LYMPHOCYTES % 25.8 % (15.0-51.0); MEAN CORPUSCULAR HEMOGLOBIN 25.7 pg (29.0-33.0); MEAN CORPUSCULAR HGB CONC 31.9 g/dl (32.0-37.0); MEAN CORPUSCULAR VOLUME 80.5 fl (82.0-101.0); MEAN PLATELET VOLUME 10.1 fl (7.4-10.4); MONOCYTE # 0.5 10^3/ul (0.3-0.9); MONOCYTES % 6.4 % (0.0-11.0); NEUTROPHIL # 4.5 10^3/ul (1.6-7.5); NEUTROPHILS % 62.8 % (39.0-77.0); PLATELET COUNT 252 10^3/UL (140-415); RED BLOOD COUNT 4.36 10^6/ul (4.20-5.40); RED CELL DISTRIBUTION WIDTH 16.1 % (11.5-14.5); WHITE BLOOD COUNT 7.1 10^3/ul (4.8-10.8)
[2016-12-23 14:01] LABS: ALBUMIN 4.4 g/dl (3.3-4.9); ALBUMIN/GLOBULIN RATIO 1.41; BILIRUBIN,INDIRECT 0.2 mg/dl (0-1.1); BILIRUBIN,TOTAL 0.2 mg/dl (0.2-1.3); CALCIUM 9.5 mg/dl (8.4-10.2); CREATININE 0.65 mg/dl (0.44-1.00); POTASSIUM 4.1 mmol/L (3.5-5.1); TOTAL PROTEIN 7.5 g/dl (6.1-8.1)
[2016-12-23 20:11] VITALS: BP 113/56; RESP 28
[2016-12-24] MEDS: MEROPENEM 500 MG/100 ML (PMX) 100 ML IVPB SCH (06:20)
[2016-12-24] MEDS: SOD CHLORIDE 0.45% 1,000 ML IV SCH (06:56)
[2016-12-24 08:38] VITALS: BP 131/73; RESP 18
[2016-12-24] MEDS: FENOFIBRATE 145 MG TAB PO SCH (08:54)
[2016-12-24] MEDS: CHOLECALCIFEROL 2,000 UNIT CAP PO SCH (08:54)
[2016-12-24] MEDS: GABAPENTIN 100 MG CAP PO SCH ×2 (08:54→12:21)
[2016-12-24] MEDS: MULTIVITAMINS THERAPEUTIC TAB PO SCH (08:58)
[2016-12-24] MEDS: ACETAMINOPHEN 500 MG TAB PO PRN (08:58)
[2016-12-24] MEDS: LOSARTAN 25 MG TAB PO SCH (08:59)
[2016-12-24] MEDS: ENOXAPARIN 30 MG/0.3 ML SYG SC SCH (08:59)
[2016-12-24] MEDS: MELOXICAM 15 MG TAB PO SCH (08:59)
[2016-12-24] MEDS: metFORMIN 500 MG TAB PO SCH (09:10)
--- NOTE | 2016-12-24 09:26 | CONS ---
Date/Time of Note Date/Time of Note DATE: 12/24/16 TIME: 09:23 Assessment/Plan Assessment/Plan Chief Complaint/Hosp Course 1) UTI with e.coli +ESBL on merrem, will have lab check sensi to fosfomycin and if sensitive then would change to po fosfomycin tomorrow doubt she has pyelo but fosfomycin does get into the kidneys pt advice on need for frequent urination in light of the fact that she gets loose stools if pt gets another uti with the same organism then will need to check if stone is still present and if so then ultrasonic pulverization would be adviced 12/24 - e.coli is sensitive to fosfomycin will d/c merrem and give fosfomycin one dose today and then every 3 days another dose for a total of 3 doses fosfomycin is not always covered by medical plans Problems: Consultation Date/Type/Reason Admit Date/Time Dec 21, 2016 at 17:00 Initial Consult Date 12/23/16 Type of Consultation: ID [id number] HR Interval Summary Free Text/Dictation pt is doing well no flank pain but has some usual back pain since waking up but it is improving no N, V, D Exam/Review of Systems Vital Signs Vitals Vital Signs Date Time Temp Pulse Resp B/P Pulse Ox O2 Delivery O2 Flow Rate FiO2 12/24/16 08:38 98.0 78 18 131/73 97 Intake and Output 12/23/16 12/23/16 12/24/16 15:00 23:00 07:00 Intake Total 625 ml 1945 ml 1055 ml Balance 625 ml 1945 ml 1055 ml Exam Constitutional: alert, oriented Eyes: nl sclera ENMT: mucosa pink and moist Respiratory: clear to auscultation Cardiovascular: regular rate and rhythm Gastrointestinal: non-tender, other (no CVAT), soft Results Result Diagram: 12/23/16 1330 12/23/16 1331 Results 24 hrs Laboratory Tests Test 12/23/16 13:30 12/23/16 13:31 White Blood Count 7.1 Red Blood Count 4.36 Hemoglobin 11.2 L Hematocrit 35.1 L Mean Corpuscular Volume 80.5 L Mean Corpuscular Hemoglobin 25.7 L Mean Corpuscular Hemoglobin Concent 31.9 L Red Cell Distribution Width 16.1 H Platelet Count 252 Mean Platelet Volume 10.1 Neutrophils % 62.8 Lymphocytes % 25.8 Monocytes % 6.4 Eosinophils % 4.1 Basophils % 0.3 Nucleated Red Blood Cells % 0.0 Neutrophils # 4.5 Lymphocytes # 1.8 Monocytes # 0.5 Eosinophils # 0.3 Basophils # 0.0 Nucleated Red Blood Cells # 0.0 Sodium Level 138 Potassium Level 4.1 Chloride Level 105 Carbon Dioxide Level 24 Anion Gap 13 Blood Urea Nitrogen 15 Creatinine 0.65 Glucose Level 121 Calcium Level 9.5 Total Bilirubin 0.2 Direct Bilirubin 0.00 Indirect Bilirubin 0.2 Aspartate Amino Transf (AST/SGOT) 24 Alanine Aminotransferase (ALT/SGPT) 24 Alkaline Phosphatase 85 Total Protein 7.5 Albumin 4.4 Globulin 3.10 Albumin/Globulin Ratio 1.41 Medications Medications Current Medications Sodium Chloride 1,000 ml @ 75 mls/hr [id number] IV Last administered on 06:56; Admin Dose 75 MLS/HR; Start 12/21/16 at 20:00 Meropenem (Merrem 500 Mg/ 100 ml (Pmx)) 100 ml @ 200 mls/hr Q8 IVPB Last administered on 12/24/16 06:20; Admin Dose 200 MLS/HR; Start 12/21/16 at 22:00 Acetaminophen (Tylenol Tab) 500 mg Q4H PRN PO PAIN/TEMP.=OR ABOVE 101F Last administered on 12/24/16 08:58; Admin Dose 500 MG; Start 12/21/16 at 20:00 Zolpidem Tartrate (Ambien) 5 mg HS PRN PO INSOMNIA; Start 12/21/16 at 20:00 Losartan Potassium (Cozaar) 25 mg DAILY PO Last administered on 12/24/16 08:59 ; Admin Dose 25 MG; Start 12/22/16 at 09:00 Gabapentin (Neurontin) 100 mg TID PO Last administered on 12/24/16 08:54; Admin Dose 100 MG; Start 12/21/16 at 21:00 Enoxaparin Sodium (Lovenox) 30 mg DAILY SC Last administered on 12/24/16 08:59 ; Admin Dose 30 MG; Start 12/22/16 at 09:00 Cholecalciferol (Vitamin D) 2,000 unit DAILY PO Last administered on 12/24/16 08:54; Admin Dose 2,000 UNIT; Start 12/22/16 at 12:00 Multivitamins Therapeutic (Theragran) 1 tab DAILY PO Last administered on 08:58; Admin Dose 1 TAB; Start 12/22/16 at 10:00 Meloxicam (Mobic) 15 mg DAILY PO Last administered on 12/24/16 08:59; Admin Dose 15 MG; Start 12/22/16 at 12:00 Fenofibrate (Tricor) 145 mg DAILY PO Last administered on 12/24/16 08:54; Admin Dose 145 MG; Start 12/23/16 at 09:00 ROGERIO BRAN MD Dec 24, 2016 09:25
[2016-12-24] MEDS ORDERED: FOSFOMYCIN 3 GM PACKET PO SCH (11:00)
--- NOTE | 2016-12-24 13:52 | DS ---
DATE OF ADMISSION: 12/21/2016 DATE OF DISCHARGE: 12/24/2016 FINAL DIAGNOSES: 1. Urinary tract infection with Escherichia coli extended-spectrum beta-lactamase. Failed outpatie nt treatment. 2. Nonobstructive calculus in the right kidney. 3. Hypertension. 4. Diabetes mellitus type 2. HOSPITAL COURSE: The patient is a 71-year-old lady status post recent hospitalization at [facility] a month ago with pyelonephritis with ongoing infection of the urinary tract, status post c ourse of Cipro and also Bactrim as outpatient and patient continued to have symptoms. Urine culture grew E. coli ESBL, and the patient was admitted for treatment of same. Patient was found to be in no acute distress, afebrile, complaining of mild right flank pain with mild tenderness on palpation right flank. The urine showed 2+ leukocyte esterase with 25 to 50 WBCs, trace urine hemoglobin. patient was seen by Dr. Bergeron, who checked the lab regarding sensitivity and ____fosfomycin. He re commended that the patient start on p.o. fosfomycin, a total of 3 doses. and if the patient has recu rrent UTI with the same organism, to check if the stone is still present and then consider lithotrip sy with stone. Patient was advised to continue all of her medications at home, namely: 1. Fenofibrate 145 mg daily. 2. Gabapentin 100 mg t.i.d. 3. Losartan 25 mg daily. 4. Meloxicam 15 mg daily. 5. Metformin 500 mg p.o. daily. The patient will follow up with me over the course of next 2 weeks has been advised to take fosfomyc in 3 grams p.o. every 3 days, total of 3 doses. Dictated By: OLGA LAMBERT MD, SR/GILBERTO Conf#: [id number] DID#: [id number]
== END 2016-12-24 15:56 | disposition home or self-care (01) | DRG 690 ==
LOC: PP2 17:00
PROVIDERS: ADMIT Internal Medicine; ATTEND Internal Medicine
DX: N39.0 Urinary tract infection, site not specified (principal); E11.9 Type 2 diabetes mellitus without complications; N20.0 Calculus of kidney; B96.20 Unspecified Escherichia coli [E. coli] as the cause of diseases classified elsewhere; Z16.12 Extended spectrum beta lactamase (ESBL) resistance; I10 Essential (primary) hypertension
CPT/HCPCS: 80048; 80053; 81001; 85025; 87086; J1650; J2185

== ENCOUNTER → 2017-01-07 | Outpatient (CLI) | payer MEDICARE, OTHER ==
[2017-01-07 08:48] LABS: ADD SCAN DIFF NO
[2017-01-07 08:49] LABS: BASOPHIL # 0.1 10^3/ul (0.0-0.1); BASOPHILS % 0.6 % (0.0-2.0); EOSINOPHILS # 0.3 10^3/ul (0.0-0.5); EOSINOPHILS % 3.4 % (0.0-7.0); HEMATOCRIT 36.9 % (37.0-47.0); HEMOGLOBIN 12.1 g/dl (12.0-16.0); LYMPHOCYTES # 2.1 10^3/ul (0.8-2.9); LYMPHOCYTES % 26.5 % (15.0-51.0); MEAN CORPUSCULAR HEMOGLOBIN 25.9 pg (29.0-33.0); MEAN CORPUSCULAR HGB CONC 32.8 g/dl (32.0-37.0); MEAN PLATELET VOLUME 10.1 fl (7.4-10.4); MONOCYTE # 0.5 10^3/ul (0.3-0.9); MONOCYTES % 6.4 % (0.0-11.0); NEUTROPHIL # 4.9 10^3/ul (1.6-7.5); NEUTROPHILS % 62.6 % (39.0-77.0); PLATELET COUNT 289 10^3/UL (140-415); RED BLOOD COUNT 4.67 10^6/ul (4.20-5.40); RED CELL DISTRIBUTION WIDTH 15.8 % (11.5-14.5); WHITE BLOOD COUNT 7.9 10^3/ul (4.8-10.8)
[2017-01-07 09:07] LABS: ALBUMIN 4.8 g/dl (3.3-4.9); ALBUMIN/GLOBULIN RATIO 1.33; BILIRUBIN,INDIRECT 0.1 mg/dl (0-1.1); BILIRUBIN,TOTAL 0.1 mg/dl (0.2-1.3); CREATININE 0.6 mg/dl (0.44-1.00); POTASSIUM 4.3 mmol/L (3.5-5.1); TOTAL PROTEIN 8.4 g/dl (6.1-8.1)
[2017-01-07 09:13] LABS: ADD UMIC YES; UR ASCORBIC ACID NEGATIVE (NEGATIVE); UR BACTERIA FEW /HPF (NONE SEEN); UR BILIRUBIN (Dip) NEGATIVE (NEGATIVE); UR BLOOD (Dip) NEGATIVE (NEGATIVE); UR CLARITY SLIGHTLY CLOUDY (CLEAR); UR COLOR YELLOW (YELLOW); UR GLUCOSE (Dip) NEGATIVE (NEGATIVE); UR KETONES (Dip) NEGATIVE (NEGATIVE); UR LEUKOCYTE ESTERASE (Dip) 3+ Leu/ul (NEGATIVE); UR NITRITE (Dip) NEGATIVE (NEGATIVE); UR RBC 6 /HPF (0-5); UR SPECIFIC GRAVITY (Dip) 1.013 (1.003-1.030); UR TOTAL PROTEIN (Dip) NEGATIVE (NEGATIVE); UR UROBILINOGEN (Dip) NEGATIVE (NEGATIVE)
== END | disposition home or self-care (01) ==
LOC: LAB 08:20
PROVIDERS: ATTEND Internal Medicine
DX: N39.0 Urinary tract infection, site not specified (principal); E11.9 Type 2 diabetes mellitus without complications; D64.9 Anemia, unspecified
CPT/HCPCS: 80053; 81001; 85025; 87086

== ENCOUNTER 2017-01-09 14:25 | Inpatient (IN) | payer MEDICARE, OTHER ==
[~2017-01-09] VITALS: Ht 167.6 cm; Wt 91.5 kg
[2017-01-09] MEDS ORDERED: ZOLPIDEM 5 MG TAB PO PRN (17:00)
[2017-01-09] MEDS: SOD CHLORIDE 0.45% 1,000 ML IV SCH (17:27)
[2017-01-09] MEDS ORDERED: GLUCOSE GEL 15 GRAM TUBE PO PRN ×2 (17:30)
[2017-01-09] MEDS ORDERED: DEXTROSE 50% 50 ML SYRINGE IV PRN ×2 (17:30)
[2017-01-09] MEDS ORDERED: GLUCAGON 1 MG INJ IM PRN (17:30)
[2017-01-09] MEDS ORDERED: GLUCOSE GEL 15 GRAM TUBE BUCCAL PRN (17:30)
[2017-01-09] MEDS: INSULIN ASPART [NOVOLOG] 3 ML PEN SC SCH ×2 (17:40→20:57)
[2017-01-09 18:10] VITALS: Ht 167.6 cm; Wt 91.5 kg
[2017-01-09 18:19] VITALS: BP 145/63; PULSE 63; RESP 18
[2017-01-09] MEDS: MEROPENEM 500 MG/100 ML (PMX) 100 ML IVPB SCH (18:38)
[2017-01-09] MEDS: ACETAMINOPHEN 500 MG TAB PO PRN (20:02)
[2017-01-09 20:12] VITALS: BP 144/67; RESP 19
[2017-01-09 22:00] VITALS: PULSE 85
[2017-01-10] VITALS: PULSE 75
[2017-01-10] MEDS: ACCU-CHEK XX SCH (02:00)
[2017-01-10 02:56] VITALS: BP 120/59; RESP 19
[2017-01-10] MEDS: MEROPENEM 500 MG/100 ML (PMX) 100 ML IVPB SCH ×3 (06:30→21:57)
[2017-01-10] MEDS: SOD CHLORIDE 0.45% 1,000 ML IV SCH ×2 (06:34→17:02)
[2017-01-10] MEDS: INSULIN ASPART [NOVOLOG] 3 ML PEN SC SCH ×4 (08:00→20:14)
[2017-01-10 08:01] VITALS: BP 129/64; RESP 17
[2017-01-10] MEDS: LOSARTAN 50 MG TAB PO SCH (08:04)
[2017-01-10] MEDS ORDERED: SOD CHLORIDE 0.9% 100 ML ONE (08:46)
[2017-01-10] MEDS ORDERED: IOHEXOL 300MG/ML 150 ML BTL ONE (08:46)
[2017-01-10 10:21] LABS: ADD SCAN DIFF NO
[2017-01-10] MEDS: ACETAMINOPHEN 500 MG TAB PO PRN ×2 (10:27→20:10)
[2017-01-10] MEDS: GABAPENTIN 100 MG CAP PO SCH ×3 (10:27→20:57)
[2017-01-10] MEDS: ENOXAPARIN 30 MG/0.3 ML SYG SC SCH (10:28)
[2017-01-10 10:31] LABS: BASOPHILS % 0.3 % (0.0-2.0); EOSINOPHILS % 0.3 % (0.0-7.0); HEMOGLOBIN 11.1 g/dl (12.0-16.0); LYMPHOCYTES # 1.3 10^3/ul (0.8-2.9); MEAN CORPUSCULAR HEMOGLOBIN 25.6 pg (29.0-33.0); MEAN CORPUSCULAR HGB CONC 32.6 g/dl (32.0-37.0); MEAN CORPUSCULAR VOLUME 78.5 fl (82.0-101.0); MEAN PLATELET VOLUME 10.1 fl (7.4-10.4); MONOCYTE # 0.8 10^3/ul (0.3-0.9); MONOCYTES % 8.5 % (0.0-11.0); NEUTROPHIL # 6.6 10^3/ul (1.6-7.5); NEUTROPHILS % 75.4 % (39.0-77.0); PLATELET COUNT 235 10^3/UL (140-415); RED BLOOD COUNT 4.33 10^6/ul (4.20-5.40); RED CELL DISTRIBUTION WIDTH 15.9 % (11.5-14.5); WHITE BLOOD COUNT 8.8 10^3/ul (4.8-10.8)
[2017-01-10 10:40] LABS: ALBUMIN 4.5 g/dl (3.3-4.9); ALBUMIN/GLOBULIN RATIO 1.4; BILIRUBIN,INDIRECT 0.6 mg/dl (0-1.1); BILIRUBIN,TOTAL 0.6 mg/dl (0.2-1.3); CREATININE 0.69 mg/dl (0.44-1.00); POTASSIUM 3.9 mmol/L (3.5-5.1); TOTAL PROTEIN 7.7 g/dl (6.1-8.1)
--- NOTE | 2017-01-10 12:47 | RADRPT ---
PROCEDURE: CT Abdomen and Pelvis with contrast. CLINICAL INDICATION: Flank pain. Infection. TECHNIQUE: CT scan of the abdomen and pelvis with contrast was performed on a multi-detector high- resolution CT scanner. The patient was scanned following the uncomplicated intravenous administrati on of 100 cc of Omnipaque 300. Coronal and sagittal reformatted images were obtained from the axial source images. Images were reviewed on a high-resolution PACS workstation. The total exam CTDI equa ls 21.51 mGy and the total exam DLP equals 1185.75 mGy-cm. One or more of the following dose reduction techniques were used: Automated exposure control. Adjustment of the mA and/or kV according to patient size. Use of iterative reconstruction technique. COMPARISON: CT abdomen and pelvis 11/16/2016. FINDINGS: CT abdomen: The lung bases are clear. The heart size is normal, without pericardial thickening or effusion. Th e liver is normal in size and density without focal mass or intrahepatic biliary dilatation. The sp juancarlos is normal in size and homogeneous in density. The stomach is partially collapsed, but is gross ly unremarkable. The pancreas as visualized is normal. The gallbladder is unremarkable. There is no evidence for biliary dilatation. The adrenal glands are symmetric and normal. Multiple areas of non- enhancement in the mid upper pole right kidney with mild surrounding perineph ezio fatty stranding in keeping with pyelonephritis. There are a few cysts in the right kidney measu res up to 1.2 cm in the lower pole right kidney. There is approximately 3 mm stone in the right UVJ. There is mild prominence of the right renal pelvis. The aorta is of normal caliber. Aortic vascular calcifications are present. There is no retroperit gill lymphadenopathy. The milad hepatis region is clear. The bowel and mesentery, as visualized, are equally unremarkable. There is a small paraumbilical fat-containing hernia. CT pelvis: The small bowel loops situated within the pelvis are unremarkable. The pelvic organs are normal. T he pelvic sidewalls and inguinal regions are clear. The sigmoid colon and rectum are unremarkable. No mass, lymphadenopathy, or free fluid is seen. No acute inflammation is seen. The bladder is no rmal. The surrounding osseous structures are unremarkable. No osteolytic or osteoblastic lesion is detected. IMPRESSION: 1. Multiple foci of nonenhancement in the mid/ upper pole right kidney with surrounding perinephric fatty stranding in keeping with acute pyelonephritis. No renal abscess. 2. Approximately 3 mm stone in the right UVJ with no significant ureteral dilatation. Mild promine nce of the right renal pelvis. No additional urolithiasis. 3. Scattered aortoiliac atherosclerosis. RPTAT: BB .Ramos Simpson MD, Date Time Electronically viewed and signed by .Ramos Simpson MD, on 01/10/2017 12:46 .O/
--- NOTE | 2017-01-10 13:17 | CONS ---
Date/Time of Note Date/Time of Note DATE: 01/10/17 TIME: 13:09 Assessment/Plan Assessment/Plan Chief Complaint/Hosp Course 1) R pyelonephritis with persistent non obstructing stone same organism as before e.coli +ESBL continue with merrem my concern is that the renal stone may be infected urology to see pt but likely she will need removal of stone or pulverization of it this bacteria is sensitive to ertapenem and so outpt management is possible will have case management consult to research if any out of pocket cost to pt for IV ertapenem at home if pt has to bear an unreasonable out of pocket cost then consider SNF placement to complete her 2 week course of IV antibiotics pt will need a PICC line if outpt iv therapy is planned to start probiotics 2) DM 3) HTN Problems: Consultation Date/Type/Reason Admit Date/Time Jan 09, 2017 at 15:53 Date of Consultation: Jan 10, 2017 Type of Consultation: ID Hx of Present Illness pt was recently treated for UTI due to e.coli +ESBL with fosfomycin. she was getting better but when she stopped she started to get slight burning with urination then yesterday she developed F and chills. She denies flank pain, N, V, D she has frequent soft stools without cramping though and she takes psyllium no SOB, cough, sore throat, joint pains, rashes Past Medical History DJD of knees, HTN, DM Social History Smoking Status: Never smoker Exam/Review of Systems Vital Signs Vitals Vital Signs Date Time Temp Pulse Resp B/P Pulse Ox O2 Delivery O2 Flow Rate FiO2 01/10/17 08:01 99.3 99 17 129/64 95 01/09/17 18:19 Room Air Intake and Output 01/09/17 01/09/17 01/10/17 15:00 23:00 07:00 Intake Total 220 ml 2050 ml Output Total 50 ml Balance 170 ml 2050 ml Exam Constitutional: alert, oriented Head: normocephalic Eyes: nl sclera ENMT: mucosa pink and moist Respiratory: clear to auscultation Cardiovascular: regular rate and rhythm Gastrointestinal: non-tender, other (no CVAT), soft Extremities: other (no swelling or pain to calves) Neurological: other (non focal) Results Result Diagram: 01/10/1745 01/10/17944 Results 24 hrs Laboratory Tests Test 01/09/17 17:40 01/09/17 20:56 01/10/17 07:59 01/10/17 09:45 Bedside Glucose 91 151 134 White Blood Count 8.8 Red Blood Count 4.33 Hemoglobin 11.1 L Hematocrit 34.0 L Mean Corpuscular Volume 78.5 L Mean Corpuscular Hemoglobin 25.6 L Mean Corpuscular Hemoglobin Concent 32.6 Red Cell Distribution Width 15.9 H Platelet Count 235 Mean Platelet Volume 10.1 Neutrophils % 75.4 Lymphocytes % 15.0 Monocytes % 8.5 Eosinophils % 0.3 Basophils % 0.3 Nucleated Red Blood Cells % 0.0 Neutrophils # 6.6 Lymphocytes # 1.3 Monocytes # 0.8 Eosinophils # 0.0 Basophils # 0.0 Nucleated Red Blood Cells # 0.0 Sodium Level 135 Potassium Level 3.9 Chloride Level 101 Carbon Dioxide Level 24 Anion Gap 14 Blood Urea Nitrogen 8 Creatinine 0.69 Glucose Level 188 Calcium Level 9.0 Total Bilirubin 0.6 Direct Bilirubin 0.00 Indirect Bilirubin 0.6 Aspartate Amino Transf (AST/SGOT) 26 Alanine Aminotransferase (ALT/SGPT) 26 Alkaline Phosphatase 92 Total Protein 7.7 Albumin 4.5 Globulin 3.20 Albumin/Globulin Ratio 1.40 Test 01/10/17 11:58 Bedside Glucose 111 Medications Medications Current Medications Sodium Chloride 1,000 ml @ 75 mls/hr [id number] IV Last administered on 01/10/17 06:34; Admin Dose 75 MLS/HR; Start 01/09/17 at 17:00 Meropenem (Merrem 500 Mg/ 100 ml (Pmx)) 100 ml @ 200 mls/hr Q8 IVPB Last administered on 01/10/17 06:30; Admin Dose 200 MLS/HR; Start 01/09/17 at 18:30 Acetaminophen (Tylenol Tab) 500 mg Q4H PRN PO PAIN AND OR TEMP over 101 Last administered on 01/10/17 10:27; Admin Dose 500 MG; Start 01/09/17 at 17:00 Zolpidem Tartrate (Ambien) 5 mg HS PRN PO INSOMNIA; Start 01/09/17 at 17:00 Losartan Potassium (Cozaar) 25 mg DAILY PO Last administered on 01/10/17 08:04 ; Admin Dose 25 MG; Start 01/10/17 at 09:00 Diagnostic Test (Pha) (Accu-Chek) 1 ea 02 XX ; Start 01/10/17 at 02:00 Miscellaneous Information 1 ea NOTE XX ; Start 01/09/17 at 17:30 Glucose (Glutose) 15 gm Q15M PRN PO DECREASED GLUCOSE; Start 01/09/17 at 17:30 Glucose (Glutose) 22.5 gm Q15M PRN PO DECREASED GLUCOSE; Start 01/09/17 at 17:30 Dextrose (D50w Syringe) 25 ml Q15M PRN IV DECREASED GLUCOSE; Start 01/09/17 at 17:30 Dextrose (D50w Syringe) 50 ml Q15M PRN IV DECREASED GLUCOSE; Start 01/09/17 at 17:30 Glucagon (Glucagen) 1 mg Q15M PRN IM DECREASED GLUCOSE; Start 01/09/17 at 17:30 Glucose (Glutose) 15 gm Q15M PRN BUCCAL DECREASED GLUCOSE; Start 01/09/17 at 17: 30 Gabapentin (Neurontin) 100 mg TID PO Last administered on 01/10/17 12:01; Admin Dose 100 MG; Start 01/10/17 at 09:41 Enoxaparin Sodium (Lovenox) 30 mg DAILY SC Last administered on 01/10/17 10:28 ; Admin Dose 30 MG; Start 01/10/17 at 10:00 ROGERIO BRAN MD Jan 10, 2017 13:16
[2017-01-10 14:32] VITALS: BP 113/60; RESP 17
--- NOTE | 2017-01-10 19:40 | CONS ---
Date/Time of Note Date/Time of Note DATE: 01/10/17 TIME: 19:11 Assessment/Plan Assessment/Plan Chief Complaint/Hosp Course Dysuria, urinary frequency, right flank pain, suprapubic pain Patient has a positive urine culture and her CT scan done today showed the 3 mm stone that she had in the right kidney has come down to the right ureterovesical junction. She should be able to pass this stone. And once he passes it if it is the reason for her recurrent urinary tract infection that should take care of it Problems: Additional Assessment/Plan Impression: 3 mm stone in the distal right ureter at the right ureterovesical junction. Right pyelonephritis. Patient is already on antibiotics we will strain her urine and hopefully she will pass that stone. Consultation Date/Type/Reason Admit Date/Time Jan 09, 2017 at 15:53 Date of Consultation: Jan 10, 2017 Type of Consultation: urology Reason for Consultation Recurrent urinary tract infection with ESBL. Patient does have a 3 mm stone in her right kidney on prior CT scan Referring Provider: OLGA LAMBERT MD Subjective hx not possible: other (Patient complains of urinary frequency, dysuria and mild right flank pain) Constitutional: other (She feels she is having fever) Eyes: no complaints ENT: no complaints Respiratory: no complaints Cardiovascular: no complaints Gastrointestinal: no complaints Genitourinary: dysuria, flank pain, other (Urinary frequency, she is voiding every 15 minutes) Musculoskeletal: no complaints Skin: no complaints Neurologic: no complaints Lymphatic: no complaints Psychological: no complaints Past Medical History Patient was admitted 2 times before, once in November, once in December for the same problem Medical History: diabetes, hypertension Past Surgical History She is a 2 para 2 normal deliveries Past Surgical Hx: no surgical history Family History Significant Family History: no pertinent family hx Social History Alcohol Use: none Smoking Status: Never smoker Exam/Review of Systems Vital Signs Vitals Vital Signs Date Time Temp Pulse Resp B/P Pulse Ox O2 Delivery O2 Flow Rate FiO2 01/10/17 14:32 98.5 90 17 113/60 97 01/09/17 18:19 Room Air Intake and Output 01/09/17 01/09/17 01/10/17 15:00 23:00 07:00 Intake Total 220 ml 2050 ml Output Total 50 ml Balance 170 ml 2050 ml Exam Patient feels febrile at the present and her temperature was checked by the nurses and it is 102.5 Constitutional: alert Psych: no complaints Head: atraumatic, normocephalic Eyes: nl conjunctiva ENMT: nl external ears & nose Neck: supple Respiratory: normal air movement Cardiovascular: regular rate and rhythm Gastrointestinal: other (Tenderness right flank and suprapubic area), soft Genitourinary - Female: other (Pelvic exam :no mass, no discharge, tenderness over the bladder area) Musculoskeletal: nl extremities to inspection Extremities: other, No calf tenderness, No clubbing, No cyanosis, No edema, No normal pulses, No palpable cord, No pitting pedal edema, No tenderness Skin: nl turgor Lymph: nl lymph nodes Results Result Diagram: 01/10/1794401/10/17944 Results 24 hrs Laboratory Tests Test 01/09/17 20:56 01/10/17 07:59 01/10/17 09:45 01/10/17 11:58 Bedside Glucose 151 134 111 White Blood Count 8.8 Red Blood Count 4.33 Hemoglobin 11.1 L Hematocrit 34.0 L Mean Corpuscular Volume 78.5 L Mean Corpuscular Hemoglobin 25.6 L Mean Corpuscular Hemoglobin Concent 32.6 Red Cell Distribution Width 15.9 H Platelet Count 235 Mean Platelet Volume 10.1 Neutrophils % 75.4 Lymphocytes % 15.0 Monocytes % 8.5 Eosinophils % 0.3 Basophils % 0.3 Nucleated Red Blood Cells % 0.0 Neutrophils # 6.6 Lymphocytes # 1.3 Monocytes # 0.8 Eosinophils # 0.0 Basophils # 0.0 Nucleated Red Blood Cells # 0.0 Sodium Level 135 Potassium Level 3.9 Chloride Level 101 Carbon Dioxide Level 24 Anion Gap 14 Blood Urea Nitrogen 8 Creatinine 0.69 Glucose Level 188 Calcium Level 9.0 Total Bilirubin 0.6 Direct Bilirubin 0.00 Indirect Bilirubin 0.6 Aspartate Amino Transf (AST/SGOT) 26 Alanine Aminotransferase (ALT/SGPT) 26 Alkaline Phosphatase 92 Total Protein 7.7 Albumin 4.5 Globulin 3.20 Albumin/Globulin Ratio 1.40 Medications Medications Current Medications Sodium Chloride 1,000 ml @ 75 mls/hr [id number] IV Last administered on 01/10/17t 06:34; Admin Dose 75 MLS/HR; Start 01/09/17 at 17:00 Meropenem (Merrem 500 Mg/ 100 ml (Pmx)) 100 ml @ 200 mls/hr Q8 IVPB Last administered on 01/10/17 14:59; Admin Dose 200 MLS/HR; Start 01/09/17 at 18:30 Acetaminophen (Tylenol Tab) 500 mg Q4H PRN PO PAIN AND OR TEMP over 101 Last administered on 01/10/17 10:27; Admin Dose 500 MG; Start 01/09/17 at 17:00 Zolpidem Tartrate (Ambien) 5 mg HS PRN PO INSOMNIA; Start 01/09/17 at 17:00 Losartan Potassium (Cozaar) 25 mg DAILY PO Last administered on 01/10/17 08:04 ; Admin Dose 25 MG; Start 01/10/17 at 09:00 Diagnostic Test (Pha) (Accu-Chek) 1 ea 02 XX ; Start 01/10/17 at 02:00 Miscellaneous Information 1 ea NOTE XX ; Start 01/09/17 at 17:30 Glucose (Glutose) 15 gm Q15M PRN PO DECREASED GLUCOSE; Start 01/09/17 at 17:30 Glucose (Glutose) 22.5 gm Q15M PRN PO DECREASED GLUCOSE; Start 01/09/17 at 17:30 Dextrose (D50w Syringe) 25 ml Q15M PRN IV DECREASED GLUCOSE; Start 01/09/17 at 17:30 Dextrose (D50w Syringe) 50 ml Q15M PRN IV DECREASED GLUCOSE; Start 01/09/17 at 17:30 Glucagon (Glucagen) 1 mg Q15M PRN IM DECREASED GLUCOSE; Start 01/09/17 at 17:30 Glucose (Glutose) 15 gm Q15M PRN BUCCAL DECREASED GLUCOSE; Start 01/09/17 at 17: 30 Gabapentin (Neurontin) 100 mg TID PO Last administered on 01/10/17 12:01; Admin Dose 100 MG; Start 01/10/17 at 09:41 Enoxaparin Sodium (Lovenox) 30 mg DAILY SC Last administered on 01/10/17 10:28 ; Admin Dose 30 MG; Start 01/10/17 at 10:00 Lactobacillus Acidophilus (Florajen3 Capsule) 1 each BID PO ; Start 01/10/17 at 21:00 CYNDI HATHAWAY MD Jan 10, 2017 19:24
[2017-01-10 20:00] VITALS: BP 137/75; RESP 20
[2017-01-10] MEDS: L ACIDOPHIL/B LACTIS/B LONGUM CAPSULE PO SCH (20:57)
[2017-01-11] MEDS: SOD CHLORIDE 0.45% 1,000 ML IV SCH ×2 (00:13→15:24)
[2017-01-11 02:00] VITALS: BP 129/71; RESP 19
[2017-01-11] MEDS: ACCU-CHEK XX SCH (02:00)
[2017-01-11 06:03] LABS: ADD SCAN DIFF NO
[2017-01-11 06:05] LABS: BASOPHILS % 0.6 % (0.0-2.0); EOSINOPHILS # 0.1 10^3/ul (0.0-0.5); EOSINOPHILS % 1.5 % (0.0-7.0); HEMATOCRIT 33.1 % (37.0-47.0); HEMOGLOBIN 10.7 g/dl (12.0-16.0); LYMPHOCYTES # 1.5 10^3/ul (0.8-2.9); MEAN CORPUSCULAR HEMOGLOBIN 25.1 pg (29.0-33.0); MEAN CORPUSCULAR HGB CONC 32.3 g/dl (32.0-37.0); MEAN CORPUSCULAR VOLUME 77.5 fl (82.0-101.0); MEAN PLATELET VOLUME 10.5 fl (7.4-10.4); MONOCYTE # 1.1 10^3/ul (0.3-0.9); MONOCYTES % 15.1 % (0.0-11.0); NEUTROPHIL # 4.4 10^3/ul (1.6-7.5); NEUTROPHILS % 61.1 % (39.0-77.0); PLATELET COUNT 225 10^3/UL (140-415); RED BLOOD COUNT 4.27 10^6/ul (4.20-5.40); RED CELL DISTRIBUTION WIDTH 15.9 % (11.5-14.5); WHITE BLOOD COUNT 7.2 10^3/ul (4.8-10.8)
[2017-01-11] MEDS: MEROPENEM 500 MG/100 ML (PMX) 100 ML IVPB SCH ×3 (06:16→22:05)
[2017-01-11 06:45] LABS: CALCIUM 8.9 mg/dl (8.4-10.2); CREATININE 0.6 mg/dl (0.44-1.00); POTASSIUM 3.6 mmol/L (3.5-5.1)
[2017-01-11] MEDS: INSULIN ASPART [NOVOLOG] 3 ML PEN SC SCH ×4 (07:48→21:00)
[2017-01-11 08:19] VITALS: BP 107/57; RESP 20
[2017-01-11] MEDS: LOSARTAN 50 MG TAB PO SCH (09:25)
[2017-01-11] MEDS: ENOXAPARIN 30 MG/0.3 ML SYG SC SCH (09:26)
[2017-01-11] MEDS: GABAPENTIN 100 MG CAP PO SCH ×3 (09:26→22:02)
[2017-01-11] MEDS: L ACIDOPHIL/B LACTIS/B LONGUM CAPSULE PO SCH ×2 (09:27→22:02)
[2017-01-11 14:00] VITALS: BP 121/62; RESP 19
--- NOTE | 2017-01-11 14:31 | PN ---
Date/Time of Note Date/Time of Note DATE: 01/11/17 TIME: 14:24 Assessment/Plan VTE Prophylaxis VTE Prophylaxis Intervention: ambulation Lines/Catheters IV Catheter Type (from [facility]): Peripheral IV Urinary Cath still in place: No Assessment/Plan Chief Complaint/Hosp Course urinary frequency Patient has a positive urine culture and her CT scan showed the 3 mm stone that she had in the right kidney has come down to the right ureterovesical junction. She should be able to pass this stone. And once he passes it if it is the reason for her recurrent urinary tract infection that should take care of it As of this moment straining of the urine did not show any stone Problems: Assessment/Plan 1 urinary tract infection and pyelonephritis, continue antibiotic 2 3 mm stone at the right ureterovesical junction she has not passed the yet and she should be able to pass. We will continue to strain the urine Subjective 24 Hr Interval Summary Free Text/Dictation Patient states that she is feeling better she has no pain and no dysuria. Constitutional: no complaints Eyes: no complaints ENT: no complaints Respiratory: no complaints Cardiovascular: no complaints Gastrointestinal: no complaints Genitourinary: other (She is voiding very often every 15-20 minute however she does not have any dysuria and no hematuria) Musculoskeletal: no complaints Skin: no complaints Neurologic: no complaints Endocrine: polyuria Exam/Review of Systems Vital Signs Vitals Vital Signs Date Time Temp Pulse Resp B/P Pulse Ox O2 Delivery O2 Flow Rate FiO2 01/11/17 08:19 98.3 83 20 107/57 97 01/09/17 18:19 Room Air Intake and Output 01/10/17 01/10/17 01/11/17 15:00 23:00 07:00 Intake Total 1830 ml 1475 ml Output Total 1550 ml Balance 1830 ml -75 ml Exam Constitutional: alert, oriented Psych: no complaints Head: normocephalic Eyes: nl conjunctiva ENMT: nl external ears & nose Neck: supple Respiratory: clear to auscultation Cardiovascular: regular rate and rhythm Gastrointestinal: soft Genitourinary - Female: other (No flank tenderness) Musculoskeletal: nl extremities to inspection Extremities: normal pulses Skin: nl turgor Results Result Diagram: 01/11/17 0534 01/11/17 0530 Results 24 hrs Laboratory Tests Test 01/10/17 20:13 01/11/17 05:30 01/11/17 05:34 01/11/17 07:41 Bedside Glucose 145 127 Sodium Level 138 Potassium Level 3.6 Chloride Level 104 Carbon Dioxide Level 26 Anion Gap 12 Blood Urea Nitrogen 9 Creatinine 0.60 Glucose Level 119 # Calcium Level 8.9 White Blood Count 7.2 Red Blood Count 4.27 Hemoglobin 10.7 L Hematocrit 33.1 L Mean Corpuscular Volume 77.5 L Mean Corpuscular Hemoglobin 25.1 L Mean Corpuscular Hemoglobin Concent 32.3 Red Cell Distribution Width 15.9 H Platelet Count 225 Mean Platelet Volume 10.5 H Neutrophils % 61.1 Lymphocytes % 21.0 Monocytes % 15.1 H Eosinophils % 1.5 Basophils % 0.6 Nucleated Red Blood Cells % 0.0 Neutrophils # 4.4 Lymphocytes # 1.5 Monocytes # 1.1 H Eosinophils # 0.1 Basophils # 0.0 Nucleated Red Blood Cells # 0.0 Test 01/11/17 11:56 Bedside Glucose 175 Medications Medications Current Medications Sodium Chloride 1,000 ml @ 75 mls/hr [id number] IV Last administered on 01/11/17 00:13; Admin Dose 75 MLS/HR; Start 01/09/17 at 17:00 Meropenem (Merrem 500 Mg/ 100 ml (Pmx)) 100 ml @ 200 mls/hr Q8 IVPB Last administered on 01/11/17 14:15; Admin Dose 200 MLS/HR; Start 01/09/17 at 18:30 Acetaminophen (Tylenol Tab) 500 mg Q4H PRN PO PAIN AND OR TEMP over 101 Last administered on 01/10/17 20:10; Admin Dose 500 MG; Start 01/09/17 at 17:00 Zolpidem Tartrate (Ambien) 5 mg HS PRN PO INSOMNIA; Start 01/09/17 at 17:00 Losartan Potassium (Cozaar) 25 mg DAILY PO Last administered on 01/11/17 09:25 ; Admin Dose 25 MG; Start 01/10/17 at 09:00 Diagnostic Test (Pha) (Accu-Chek) 1 ea 02 XX ; Start 01/10/17 at 02:00 Miscellaneous Information 1 ea NOTE XX ; Start 01/09/17 at 17:30 Glucose (Glutose) 15 gm Q15M PRN PO DECREASED GLUCOSE; Start 01/09/17 at 17:30 Glucose (Glutose) 22.5 gm Q15M PRN PO DECREASED GLUCOSE; Start 01/09/17 at 17:30 Dextrose (D50w Syringe) 25 ml Q15M PRN IV DECREASED GLUCOSE; Start 01/09/17 at 17:30 Dextrose (D50w Syringe) 50 ml Q15M PRN IV DECREASED GLUCOSE; Start 01/09/17 at 17:30 Glucagon (Glucagen) 1 mg Q15M PRN IM DECREASED GLUCOSE; Start 01/09/17 at 17:30 Glucose (Glutose) 15 gm Q15M PRN BUCCAL DECREASED GLUCOSE; Start 01/09/17 at 17: 30 Gabapentin (Neurontin) 100 mg TID PO Last administered on 01/11/17 12:38; Admin Dose 100 MG; Start 01/10/17 at 09:41 Enoxaparin Sodium (Lovenox) 30 mg DAILY SC Last administered on 01/11/17 09:26 ; Admin Dose 30 MG; Start 01/10/17 at 10:00 Lactobacillus Acidophilus (Florajen3 Capsule) 1 each BID PO Last administered on 01/11/17 09:27; Admin Dose 1 EACH; Start 01/10/17 at 21:00 CYNDI HATHAWAY MD Jan 11, 2017 14:31
--- NOTE | 2017-01-11 16:28 | CONS ---
Date/Time of Note Date/Time of Note DATE: 01/11/17 TIME: 16:18 Assessment/Plan Assessment/Plan Additional Assessment/Plan 1) R pyelonephritis with persistent non obstructing stone of 3mm in size, same organism as before e.coli +ESBL sensitive to cefepime and carbapenems and aminoglycosides continue with merrem per urology patient should be able to pass the stone without intervention; if patient passes the stone prior to discharge then home antibiotics would not be necessary. Continue probiotics 2) DM 3) HTN Consultation Date/Type/Reason Admit Date/Time Jan 09, 2017 at 15:53 Initial Consult Date 01/10/17 Type of Consultation: Infectious Diseases Referring Provider: OLGA LAMBERT MD 24 HR Interval Summary Free Text/Dictation Afebrile overnight, neutrophilia improving, creatinine stable. Spoke with the patient she is comfortable without abdominal pain, N, V, loose stools. Appetite is OK, limited by the food presented. Exam/Review of Systems Vital Signs Vitals Vital Signs Date Time Temp Pulse Resp B/P Pulse Ox O2 Delivery O2 Flow Rate FiO2 01/11/17 14:00 98.0 85 19 121/62 98 01/09/17 18:19 Room Air Intake and Output 01/10/17 01/10/17 01/11/17 14:59 22:59 06:59 Intake Total 100 ml 1830 ml 1475 ml Output Total 1550 ml Balance 100 ml 1830 ml -75 ml Exam Constitutional: alert Psych: no complaints Head: atraumatic, normocephalic Eyes: nl conjunctiva ENMT: nl external ears & nose Neck: supple Respiratory: normal air movement Cardiovascular: regular rate and rhythm Gastrointestinal: other (Tenderness right flank and suprapubic area), soft Genitourinary - Female: other (Pelvic exam :no mass, no discharge, tenderness over the bladder area) Musculoskeletal: nl extremities to inspection Extremities: other, No calf tenderness, No clubbing, No cyanosis, No edema, No normal pulses, No palpable cord, No pitting pedal edema, No tenderness Skin: nl turgor Lymph: nl lymph nodes Results Result Diagram: 01/11/17 0534 01/11/17 0530 Results 24 hrs Laboratory Tests Test 01/10/17 20:13 01/11/17 05:30 01/11/17 05:34 01/11/17 07:41 Bedside Glucose 145 127 Sodium Level 138 Potassium Level 3.6 Chloride Level 104 Carbon Dioxide Level 26 Anion Gap 12 Blood Urea Nitrogen 9 Creatinine 0.60 Glucose Level 119 # Calcium Level 8.9 White Blood Count 7.2 Red Blood Count 4.27 Hemoglobin 10.7 L Hematocrit 33.1 L Mean Corpuscular Volume 77.5 L Mean Corpuscular Hemoglobin 25.1 L Mean Corpuscular Hemoglobin Concent 32.3 Red Cell Distribution Width 15.9 H Platelet Count 225 Mean Platelet Volume 10.5 H Neutrophils % 61.1 Lymphocytes % 21.0 Monocytes % 15.1 H Eosinophils % 1.5 Basophils % 0.6 Nucleated Red Blood Cells % 0.0 Neutrophils # 4.4 Lymphocytes # 1.5 Monocytes # 1.1 H Eosinophils # 0.1 Basophils # 0.0 Nucleated Red Blood Cells # 0.0 Test 01/11/17 11:56 Bedside Glucose 175 Medications Medications Current Medications Sodium Chloride 1,000 ml @ 75 mls/hr [id number] IV Last administered on 01/11/17 15:24; Admin Dose 75 MLS/HR; Start 01/09/17 at 17:00 Meropenem (Merrem 500 Mg/ 100 ml (Pmx)) 100 ml @ 200 mls/hr Q8 IVPB Last administered on 01/11/17 14:15; Admin Dose 200 MLS/HR; Start 01/09/17 at 18:30 Acetaminophen (Tylenol Tab) 500 mg Q4H PRN PO PAIN AND OR TEMP over 101 Last administered on 01/10/17 20:10; Admin Dose 500 MG; Start 01/09/17 at 17:00 Zolpidem Tartrate (Ambien) 5 mg HS PRN PO INSOMNIA; Start 01/09/17 at 17:00 Losartan Potassium (Cozaar) 25 mg DAILY PO Last administered on 01/11/17 09:25 ; Admin Dose 25 MG; Start 01/10/17 at 09:00 Diagnostic Test (Pha) (Accu-Chek) 1 ea 02 XX ; Start 01/10/17 at 02:00 Miscellaneous Information 1 ea NOTE XX ; Start 01/09/17 at 17:30 Glucose (Glutose) 15 gm Q15M PRN PO DECREASED GLUCOSE; Start 01/09/17 at 17:30 Glucose (Glutose) 22.5 gm Q15M PRN PO DECREASED GLUCOSE; Start 01/09/17 at 17:30 Dextrose (D50w Syringe) 25 ml Q15M PRN IV DECREASED GLUCOSE; Start 01/09/17 at 17:30 Dextrose (D50w Syringe) 50 ml Q15M PRN IV DECREASED GLUCOSE; Start 01/09/17 at 17:30 Glucagon (Glucagen) 1 mg Q15M PRN IM DECREASED GLUCOSE; Start 01/09/17 at 17:30 Glucose (Glutose) 15 gm Q15M PRN BUCCAL DECREASED GLUCOSE; Start 01/09/17 at 17: 30 Gabapentin (Neurontin) 100 mg TID PO Last administered on 01/11/17 12:38; Admin Dose 100 MG; Start 01/10/17 at 09:41 Enoxaparin Sodium (Lovenox) 30 mg DAILY SC Last administered on 01/11/17 09:26 ; Admin Dose 30 MG; Start 01/10/17 at 10:00 Lactobacillus Acidophilus (Florajen3 Capsule) 1 each BID PO Last administered on 01/11/17 09:27; Admin Dose 1 EACH; Start 01/10/17 at 21:00 ELISSA GILL Jan 11, 2017 16:28
[2017-01-11 20:14] VITALS: BP 134/86; RESP 18
[2017-01-11] MEDS: ACETAMINOPHEN 500 MG TAB PO PRN (22:02)
[2017-01-12] MEDS: ACCU-CHEK XX SCH (02:00)
[2017-01-12 02:30] VITALS: BP 102/60; RESP 16
[2017-01-12 05:21] LABS: ADD SCAN DIFF NO
[2017-01-12 05:31] LABS: BASOPHILS % 0.5 % (0.0-2.0); EOSINOPHILS # 0.3 10^3/ul (0.0-0.5); EOSINOPHILS % 4.5 % (0.0-7.0); HEMATOCRIT 33.1 % (37.0-47.0); HEMOGLOBIN 10.7 g/dl (12.0-16.0); LYMPHOCYTES % 31.3 % (15.0-51.0); MEAN CORPUSCULAR HEMOGLOBIN 25.6 pg (29.0-33.0); MEAN CORPUSCULAR HGB CONC 32.3 g/dl (32.0-37.0); MEAN CORPUSCULAR VOLUME 79.2 fl (82.0-101.0); MEAN PLATELET VOLUME 10.7 fl (7.4-10.4); MONOCYTE # 0.9 10^3/ul (0.3-0.9); MONOCYTES % 14.9 % (0.0-11.0); NEUTROPHILS % 48.2 % (39.0-77.0); PLATELET COUNT 246 10^3/UL (140-415); RED BLOOD COUNT 4.18 10^6/ul (4.20-5.40); RED CELL DISTRIBUTION WIDTH 15.6 % (11.5-14.5); WHITE BLOOD COUNT 6.2 10^3/ul (4.8-10.8)
[2017-01-12] MEDS: MEROPENEM 500 MG/100 ML (PMX) 100 ML IVPB SCH ×3 (05:31→21:54)
[2017-01-12] MEDS: SOD CHLORIDE 0.45% 1,000 ML IV SCH (05:31)
[2017-01-12 05:48] LABS: CALCIUM 8.9 mg/dl (8.4-10.2); CREATININE 0.58 mg/dl (0.44-1.00); POTASSIUM 3.7 mmol/L (3.5-5.1)
[2017-01-12] MEDS: INSULIN ASPART [NOVOLOG] 3 ML PEN SC SCH ×4 (08:00→21:00)
[2017-01-12] MEDS: GABAPENTIN 100 MG CAP PO SCH ×3 (08:02→21:51)
[2017-01-12] MEDS: L ACIDOPHIL/B LACTIS/B LONGUM CAPSULE PO SCH ×2 (08:02→21:51)
[2017-01-12] MEDS: ENOXAPARIN 30 MG/0.3 ML SYG SC SCH (08:03)
[2017-01-12] MEDS: LOSARTAN 50 MG TAB PO SCH (08:07)
[2017-01-12 08:09] VITALS: BP 137/77; RESP 17
[2017-01-12 15:12] VITALS: BP 110/56; RESP 17
--- NOTE | 2017-01-12 16:03 | CONS ---
Date/Time of Note Date/Time of Note DATE: 01/12/17 TIME: 16:01 Assessment/Plan Assessment/Plan Additional Assessment/Plan 1) R pyelonephritis with persistent non obstructing stone of 3mm in size, same organism as before e.coli +ESBL sensitive to cefepime and carbapenems and aminoglycosides continue with merrem Given probable pyelonephritis regardless of infected stone, agree with 14 days of therapy total. Once the lab returns sensitivities to ertapenem, this can be used at home 1g IV daily to complete therapy. There is no need for a PICC line and the patient prefers not to have. Perhaps Friday planner chief can start getting home health approval for this. 2) DM 3) HTN Consultation Date/Type/Reason Admit Date/Time Jan 09, 2017 at 15:53 Initial Consult Date 01/10/17 Type of Consultation: Infectious Diseases Referring Provider: OLGA LAMBERT MD 24 HR Interval Summary Free Text/Dictation Doing well. Still some soreness in the right flank/kidney with deep breath. No N , V, D, CP, SOB, KYLE. Low grade temperature yesterday evening. Exam/Review of Systems Vital Signs Vitals Vital Signs Date Time Temp Pulse Resp B/P Pulse Ox O2 Delivery O2 Flow Rate FiO2 01/12/17 15:12 98.2 88 17 110/56 99 01/09/17 18:19 Room Air Intake and Output 01/11/17 01/11/17 01/12/17 15:00 23:00 07:00 Intake Total 2440 ml 1900 ml Output Total 1500 ml 1750 ml Balance 940 ml 150 ml Exam Constitutional: alert Psych: no complaints Head: atraumatic, normocephalic Eyes: nl conjunctiva ENMT: nl external ears & nose Neck: supple Respiratory: normal air movement Cardiovascular: regular rate and rhythm Gastrointestinal: other (Tenderness right flank and suprapubic area), soft Genitourinary - Female: other (Pelvic exam :no mass, no discharge, tenderness over the bladder area) Musculoskeletal: nl extremities to inspection Extremities: other, No calf tenderness, No clubbing, No cyanosis, No edema, No normal pulses, No palpable cord, No pitting pedal edema, No tenderness Skin: nl turgor Lymph: nl lymph nodes Results Result Diagram: 7/9/17 0445 7/9/17 0445 Results 24 hrs Laboratory Tests Test 01/11/17 17:25 01/11/17 22:00 01/12/17 04:45 01/12/17 07:45 Bedside Glucose 121 147 124 White Blood Count 6.2 Red Blood Count 4.18 L Hemoglobin 10.7 L Hematocrit 33.1 L Mean Corpuscular Volume 79.2 L Mean Corpuscular Hemoglobin 25.6 L Mean Corpuscular Hemoglobin Concent 32.3 Red Cell Distribution Width 15.6 H Platelet Count 246 Mean Platelet Volume 10.7 H Neutrophils % 48.2 Lymphocytes % 31.3 Monocytes % 14.9 H Eosinophils % 4.5 Basophils % 0.5 Nucleated Red Blood Cells % 0.0 Neutrophils # 3.0 Lymphocytes # 2.0 Monocytes # 0.9 Eosinophils # 0.3 Basophils # 0.0 Nucleated Red Blood Cells # 0.0 Sodium Level 141 Potassium Level 3.7 Chloride Level 105 Carbon Dioxide Level 25 Anion Gap 15 Blood Urea Nitrogen 11 Creatinine 0.58 Glucose Level 117 Calcium Level 8.9 Ferritin 78.1 Test 01/12/17 11:33 Bedside Glucose 128 Medications Medications Current Medications Sodium Chloride 1,000 ml @ 75 mls/hr [id number] IV Last administered on 01/12/17 05:31; Admin Dose 75 MLS/HR; Start 01/09/17 at 17:00 Meropenem (Merrem 500 Mg/ 100 ml (Pmx)) 100 ml @ 200 mls/hr Q8 IVPB Last administered on 01/12/17 14:24; Admin Dose 200 MLS/HR; Start 01/09/17 at 18:30 Acetaminophen (Tylenol Tab) 500 mg Q4H PRN PO PAIN AND OR TEMP over 101 Last administered on 01/11/17 22:02; Admin Dose 500 MG; Start 01/09/17 at 17:00 Zolpidem Tartrate (Ambien) 5 mg HS PRN PO INSOMNIA; Start 01/09/17 at 17:00 Losartan Potassium (Cozaar) 25 mg DAILY PO Last administered on 01/11/17 09:25 ; Admin Dose 25 MG; Start 01/10/17 at 09:00 Diagnostic Test (Pha) (Accu-Chek) 1 ea 02 XX ; Start 01/10/17 at 02:00 Miscellaneous Information 1 ea NOTE XX ; Start 01/09/17 at 17:30 Glucose (Glutose) 15 gm Q15M PRN PO DECREASED GLUCOSE; Start 01/09/17 at 17:30 Glucose (Glutose) 22.5 gm Q15M PRN PO DECREASED GLUCOSE; Start 01/09/17 at 17:30 Dextrose (D50w Syringe) 25 ml Q15M PRN IV DECREASED GLUCOSE; Start 01/09/17 at 17:30 Dextrose (D50w Syringe) 50 ml Q15M PRN IV DECREASED GLUCOSE; Start 01/09/17 at 17:30 Glucagon (Glucagen) 1 mg Q15M PRN IM DECREASED GLUCOSE; Start 01/09/17 at 17:30 Glucose (Glutose) 15 gm Q15M PRN BUCCAL DECREASED GLUCOSE; Start 01/09/17 at 17: 30 Gabapentin (Neurontin) 100 mg TID PO Last administered on 01/12/17 11:33; Admin Dose 100 MG; Start 01/10/17 at 09:41 Enoxaparin Sodium (Lovenox) 30 mg DAILY SC Last administered on 01/12/17 08:03 ; Admin Dose 30 MG; Start 01/10/17 at 10:00 Lactobacillus Acidophilus (Florajen3 Capsule) 1 each BID PO Last administered on 01/12/17 08:02; Admin Dose 1 EACH; Start 01/10/17 at 21:00 ELISSA GILL Jan 12, 2017 16:03
--- NOTE | 2017-01-12 19:04 | PN ---
Date/Time of Note Date/Time of Note DATE: 01/12/17 TIME: 18:56 Assessment/Plan VTE Prophylaxis VTE Prophylaxis Intervention: ambulation Lines/Catheters IV Catheter Type (from [facility]): Peripheral IV Urinary Cath still in place: No Assessment/Plan Chief Complaint/Hosp Course urinary frequency Patient has a positive urine culture with ESBL E. coli and her CT scan showed the 3 mm stone that she had in the right kidney has come down to the right ureterovesical junction. She should be able to pass this stone. And once she passes it if it is the reason for her recurrent urinary tract infection that should take care of it As of this moment straining of the urine did not show any stone. If prior to discharge she has not passed the stone yet then we will repeat the CAT scan to find out if she passed the stone or not Problems: Assessment/Plan Continue with IV antibiotic and strain the urine Subjective 24 Hr Interval Summary Free Text/Dictation Urinary tract infection was ESBL and a 3 mm stone at the right ureterovesical junction Constitutional: no complaints Eyes: no complaints ENT: no complaints Respiratory: no complaints Cardiovascular: no complaints Gastrointestinal: no complaints, No nausea, No vomiting Genitourinary: other (Urinary frequency. She voids every half hour) Musculoskeletal: no complaints Skin: no complaints Neurologic: no complaints, No headache Endocrine: no complaints Lymphatic: no complaints Psychological: no complaints Immunologic: no complaints Additional Comments She had a temperature of 100.7 last night Exam/Review of Systems Vital Signs Vitals Vital Signs Date Time Temp Pulse Resp B/P Pulse Ox O2 Delivery O2 Flow Rate FiO2 01/12/17 15:12 98.2 88 17 110/56 99 01/09/17 18:19 Room Air Intake and Output 01/11/17 01/11/17 01/12/17 15:00 23:00 07:00 Intake Total 2440 ml 1900 ml Output Total 1500 ml 1750 ml Balance 940 ml 150 ml Exam Temperature of 100.7 last night Constitutional: alert, oriented Psych: no complaints Head: normocephalic Eyes: nl conjunctiva ENMT: nl external ears & nose Neck: supple Respiratory: normal air movement Cardiovascular: regular rate and rhythm Gastrointestinal: No mass, No tender Genitourinary - Female: CVA tenderness Musculoskeletal: nl extremities to inspection Extremities: No edema, No palpable cord, No tenderness Neurological: nl strength Skin: nl turgor Lymph: nl lymph nodes Results Result Diagram: 01/12/17 0445 01/12/17 0445 Results 24 hrs Laboratory Tests Test 01/11/17 22:00 01/12/17 04:45 01/12/17 07:45 01/12/17 11:33 Bedside Glucose 147 124 128 White Blood Count 6.2 Red Blood Count 4.18 L Hemoglobin 10.7 L Hematocrit 33.1 L Mean Corpuscular Volume 79.2 L Mean Corpuscular Hemoglobin 25.6 L Mean Corpuscular Hemoglobin Concent 32.3 Red Cell Distribution Width 15.6 H Platelet Count 246 Mean Platelet Volume 10.7 H Neutrophils % 48.2 Lymphocytes % 31.3 Monocytes % 14.9 H Eosinophils % 4.5 Basophils % 0.5 Nucleated Red Blood Cells % 0.0 Neutrophils # 3.0 Lymphocytes # 2.0 Monocytes # 0.9 Eosinophils # 0.3 Basophils # 0.0 Nucleated Red Blood Cells # 0.0 Sodium Level 141 Potassium Level 3.7 Chloride Level 105 Carbon Dioxide Level 25 Anion Gap 15 Blood Urea Nitrogen 11 Creatinine 0.58 Glucose Level 117 Calcium Level 8.9 Ferritin 78.1 Test 01/12/17 16:40 Bedside Glucose 113 Medications Medications Current Medications Sodium Chloride 1,000 ml @ 75 mls/hr [id number] IV Last administered on 01/12/17 05:31; Admin Dose 75 MLS/HR; Start 01/09/17 at 17:00 Meropenem (Merrem 500 Mg/ 100 ml (Pmx)) 100 ml @ 200 mls/hr Q8 IVPB Last administered on 01/12/17 14:24; Admin Dose 200 MLS/HR; Start 01/09/17 at 18:30 Acetaminophen (Tylenol Tab) 500 mg Q4H PRN PO PAIN AND OR TEMP over 101 Last administered on 01/11/17 22:02; Admin Dose 500 MG; Start 01/09/17 at 17:00 Zolpidem Tartrate (Ambien) 5 mg HS PRN PO INSOMNIA; Start 01/09/17 at 17:00 Losartan Potassium (Cozaar) 25 mg DAILY PO Last administered on 01/11/17 09:25 ; Admin Dose 25 MG; Start 01/10/17 at 09:00 Diagnostic Test (Pha) (Accu-Chek) 1 ea 02 XX ; Start 01/10/17 at 02:00 Miscellaneous Information 1 ea NOTE XX ; Start 01/09/17 at 17:30 Glucose (Glutose) 15 gm Q15M PRN PO DECREASED GLUCOSE; Start 01/09/17 at 17:30 Glucose (Glutose) 22.5 gm Q15M PRN PO DECREASED GLUCOSE; Start 01/09/17 at 17:30 Dextrose (D50w Syringe) 25 ml Q15M PRN IV DECREASED GLUCOSE; Start 01/09/17 at 17:30 Dextrose (D50w Syringe) 50 ml Q15M PRN IV DECREASED GLUCOSE; Start 01/09/17 at 17:30 Glucagon (Glucagen) 1 mg Q15M PRN IM DECREASED GLUCOSE; Start 01/09/17 at 17:30 Glucose (Glutose) 15 gm Q15M PRN BUCCAL DECREASED GLUCOSE; Start 01/09/17 at 17: 30 Gabapentin (Neurontin) 100 mg TID PO Last administered on 01/12/17 11:33; Admin Dose 100 MG; Start 01/10/17 at 09:41 Enoxaparin Sodium (Lovenox) 30 mg DAILY SC Last administered on 01/12/17 08:03 ; Admin Dose 30 MG; Start 01/10/17 at 10:00 Lactobacillus Acidophilus (Florajen3 Capsule) 1 each BID PO Last administered on 01/12/17 08:02; Admin Dose 1 EACH; Start 01/10/17 at 21:00 CYNDI HATHAWAY MD Jan 12, 2017 19:03
[2017-01-12 20:25] VITALS: BP 127/59; RESP 20
[2017-01-13] MEDS: ACCU-CHEK XX SCH (02:00)
[2017-01-13 02:32] VITALS: BP 134/64; RESP 18
[2017-01-13] MEDS: MEROPENEM 500 MG/100 ML (PMX) 100 ML IVPB SCH (05:33)
[2017-01-13] MEDS: SOD CHLORIDE 0.45% 1,000 ML IV SCH ×2 (05:34→14:20)
[2017-01-13 07:55] VITALS: BP 112/75; RESP 16
[2017-01-13] MEDS: INSULIN ASPART [NOVOLOG] 3 ML PEN SC SCH ×4 (08:00→20:02)
[2017-01-13] MEDS: LOSARTAN 50 MG TAB PO SCH (08:20)
[2017-01-13] MEDS: L ACIDOPHIL/B LACTIS/B LONGUM CAPSULE PO SCH ×2 (08:20→20:04)
[2017-01-13] MEDS: GABAPENTIN 100 MG CAP PO SCH ×3 (08:20→20:04)
[2017-01-13] MEDS: ENOXAPARIN 30 MG/0.3 ML SYG SC SCH (08:20)
--- NOTE | 2017-01-13 12:20 | CONS ---
Date/Time of Note Date/Time of Note DATE: 01/13/17 TIME: 12:18 Assessment/Plan Assessment/Plan Chief Complaint/Hosp Course 1) R pyelonephritis with persistent non obstructing stone same organism as before e.coli +ESBL continue with merrem my concern is that the renal stone may be infected urology to see pt but likely she will need removal of stone or pulverization of it this bacteria is sensitive to ertapenem and so outpt management is possible will have case management consult to research if any out of pocket cost to pt for IV ertapenem at home if pt has to bear an unreasonable out of pocket cost then consider SNF placement to complete her 2 week course of IV antibiotics pt will need a PICC line if outpt iv therapy is planned to start probiotics 01/13 - pt defers picc line have written home health orders for home IV ertapenem thru 01/23/17 ok for d/c once home health is in place 2) DM 3) HTN Problems: Consultation Date/Type/Reason Admit Date/Time Jan 09, 2017 at 15:53 Initial Consult Date 01/10/17 Type of Consultation: Infectious Diseases Referring Provider: OLGA LAMBERT MD 24 HR Interval Summary Free Text/Dictation pt still has some pain to R flank no N, V, D, SOB Exam/Review of Systems Vital Signs Vitals Vital Signs Date Time Temp Pulse Resp B/P Pulse Ox O2 Delivery O2 Flow Rate FiO2 01/13/17 07:55 97.9 77 16 112/75 97 01/09/17 18:19 Room Air Intake and Output 01/12/17 01/12/17 01/13/17 15:00 23:00 07:00 Intake Total 100 ml 1600 ml 755 ml Output Total 800 ml 250 ml Balance 100 ml 800 ml 505 ml Exam Constitutional: alert, oriented Eyes: nl conjunctiva ENMT: mucosa pink and moist Respiratory: clear to auscultation Cardiovascular: regular rate and rhythm Gastrointestinal: soft Genitourinary - Female: other (no CVAT) Results Result Diagram: 01/12/17 0445 01/12/17 0445 Results 24 hrs Laboratory Tests Test 01/12/17 16:40 01/12/17 21:52 01/13/17 06:00 01/13/17 08:04 Bedside Glucose 113 147 114 Stool Occult Blood NEGATIVE Medications Medications Current Medications Sodium Chloride 1,000 ml @ 75 mls/hr [id number] IV Last administered on 05:34; Admin Dose 75 MLS/HR; Start 01/09/17 at 17:00 Meropenem (Merrem 500 Mg/ 100 ml (Pmx)) 100 ml @ 200 mls/hr Q8 IVPB Last administered on 01/13/17 05:33; Admin Dose 200 MLS/HR; Start 01/09/17 at 18:30 Acetaminophen (Tylenol Tab) 500 mg Q4H PRN PO PAIN AND OR TEMP over 101 Last administered on 01/11/17 22:02; Admin Dose 500 MG; Start 01/09/17 at 17:00 Zolpidem Tartrate (Ambien) 5 mg HS PRN PO INSOMNIA; Start 01/09/17 at 17:00 Losartan Potassium (Cozaar) 25 mg DAILY PO Last administered on 01/13/17 08:20 ; Admin Dose 25 MG; Start 01/10/17 at 09:00 Diagnostic Test (Pha) (Accu-Chek) 1 ea 02 XX ; Start 01/10/17 at 02:00 Miscellaneous Information 1 ea NOTE XX ; Start 01/09/17 at 17:30 Glucose (Glutose) 15 gm Q15M PRN PO DECREASED GLUCOSE; Start 01/09/17 at 17:30 Glucose (Glutose) 22.5 gm Q15M PRN PO DECREASED GLUCOSE; Start 01/09/17 at 17:30 Dextrose (D50w Syringe) 25 ml Q15M PRN IV DECREASED GLUCOSE; Start 01/09/17 at 17:30 Dextrose (D50w Syringe) 50 ml Q15M PRN IV DECREASED GLUCOSE; Start 01/09/17 at 17:30 Glucagon (Glucagen) 1 mg Q15M PRN IM DECREASED GLUCOSE; Start 01/09/17 at 17:30 Glucose (Glutose) 15 gm Q15M PRN BUCCAL DECREASED GLUCOSE; Start 01/09/17 at 17: 30 Gabapentin (Neurontin) 100 mg TID PO Last administered on 01/13/17 12:09; Admin Dose 100 MG; Start 01/10/17 at 09:41 Enoxaparin Sodium (Lovenox) 30 mg DAILY SC Last administered on 01/13/17 08:20 ; Admin Dose 30 MG; Start 01/10/17 at 10:00 Lactobacillus Acidophilus (Florajen3 Capsule) 1 each BID PO Last administered on 01/13/17 08:20; Admin Dose 1 EACH; Start 01/10/17 at 21:00 ROGERIO BRAN MD Jan 13, 2017 12:20
--- NOTE | 2017-01-13 13:05 | PN ---
Date/Time of Note Date/Time of Note DATE: 01/13/17 TIME: 13:00 Assessment/Plan VTE Prophylaxis VTE Prophylaxis Intervention: ambulation Lines/Catheters [facility] Peripheral IV Urinary Cath still in place: No Assessment/Plan Chief Complaint/Hosp Course urinary frequency Patient has a positive urine culture with ESBL E. coli and her CT scan showed the 3 mm stone that she had in the right kidney has come down to the right ureterovesical junction. She should be able to pass this stone. And once she passes it if it is the reason for her recurrent urinary tract infection that should take care of it As of this moment straining of the urine did not show any stone. If prior to discharge she has not passed the stone yet then we will repeat the CAT scan to find out if she passed the stone or not Problems: Assessment/Plan Plan is to continue the intravenous antibiotics as per ID recommendation, since the straining of the urine has not yielded any stone we will repeat the CT scan of the abdomen and pelvis to see if she still have the stone , most likely she did pass it and it was not recovered by straining the urine, may have passed it before that Subjective 24 Hr Interval Summary Free Text/Dictation The patient feels much better, denies having any severe pain but she still have urinary frequency. She is drinking a lot of water mixed with cranberry juice Constitutional: no complaints Eyes: no complaints ENT: no complaints Respiratory: no complaints Cardiovascular: no complaints Gastrointestinal: no complaints Genitourinary: other (Urinary frequency), No dysuria, No hematuria Musculoskeletal: no complaints Skin: no complaints Neurologic: no complaints Endocrine: no complaints Lymphatic: no complaints Psychological: no complaints Exam/Review of Systems Vital Signs Vitals Vital Signs Date Time Temp Pulse Resp B/P Pulse Ox O2 Delivery O2 Flow Rate FiO2 01/13/17 07:55 97.9 77 16 112/75 97 01/09/17 18:19 Room Air Intake and Output 01/12/17 01/12/17 01/13/17 15:00 23:00 07:00 Intake Total 100 ml 1600 ml 755 ml Output Total 800 ml 250 ml Balance 100 ml 800 ml 505 ml Exam Eyes: nl conjunctiva ENMT: nl external ears & nose Neck: supple Respiratory: normal air movement Cardiovascular: nl pulses Gastrointestinal: non-tender, soft, No tender Genitourinary - Female: other (No flank tenderness) Musculoskeletal: nl extremities to inspection Extremities: normal pulses Skin: nl turgor Results Result Diagram: 01/12/175 01/12/175 Results 24 hrs Laboratory Tests Test 01/12/17 16:40 01/12/17 21:52 01/13/17 06:00 01/13/17 08:04 Bedside Glucose 113 147 114 Stool Occult Blood NEGATIVE Test 01/13/17 12:09 Bedside Glucose 102 Medications Medications Current Medications Sodium Chloride (1/2 NS) 1,000 ml @ 75 mls/hr [id number] IV Last administered on 01/13/17 05:34; Admin Dose 75 MLS/HR; Start 01/09/17 at 17:00 Acetaminophen (Tylenol Tab) 500 mg Q4H PRN PO PAIN AND OR TEMP over 101 Last administered on 01/11/17 22:02; Admin Dose 500 MG; Start 01/09/17 at 17:00 Zolpidem Tartrate (Ambien) 5 mg HS PRN PO INSOMNIA; Start 01/09/17 at 17:00 Losartan Potassium (Cozaar) 25 mg DAILY PO Last administered on 01/13/17 08:20 ; Admin Dose 25 MG; Start 01/10/17 at 09:00 Diagnostic Test (Pha) (Accu-Chek) 1 ea 02 XX ; Start 01/10/17 at 02:00 Miscellaneous Information 1 ea NOTE XX ; Start 01/09/17 at 17:30 Glucose (Glutose) 15 gm Q15M PRN PO DECREASED GLUCOSE; Start 01/09/17 at 17:30 Glucose (Glutose) 22.5 gm Q15M PRN PO DECREASED GLUCOSE; Start 01/09/17 at 17:30 Dextrose (D50w Syringe) 25 ml Q15M PRN IV DECREASED GLUCOSE; Start 01/09/17 at 17:30 Dextrose (D50w Syringe) 50 ml Q15M PRN IV DECREASED GLUCOSE; Start 01/09/17 at 17:30 Glucagon (Glucagen) 1 mg Q15M PRN IM DECREASED GLUCOSE; Start 01/09/17 at 17:30 Glucose (Glutose) 15 gm Q15M PRN BUCCAL DECREASED GLUCOSE; Start 01/09/17 at 17: 30 Gabapentin (Neurontin) 100 mg TID PO Last administered on 01/13/17 12:09; Admin Dose 100 MG; Start 01/10/17 at 09:41 Enoxaparin Sodium (Lovenox) 30 mg DAILY SC Last administered on 01/13/17 08:20 ; Admin Dose 30 MG; Start 01/10/17 at 10:00 Lactobacillus Acidophilus 1 each 1 each BID PO Last administered on 01/13/17 08:20; Admin Dose 1 EACH; Start 01/10/17 at 21:00 Ertapenem/Sodium Chloride (Invanz/NS) 100 ml @ 200 mls/hr Q24H IVPB ; Start 04/22 at 12:30 CYNDI HATHAWAY MD Jan 13, 2017 13:05
[2017-01-13] MEDS: ERTAPENEM SODIUM 1 GM in SOD CHLORIDE 0.9% 100 ML IVPB SCH (13:28)
[2017-01-13 14:41] VITALS: BP 113/56; RESP 16
--- NOTE | 2017-01-13 16:52 | RADRPT ---
PROCEDURE: CT Abdomen and Pelvis without contrast. CLINICAL INDICATION: Abdominal and pelvic pain. Right flank pain. History of right ureterovesicle junction calculus. TECHNIQUE: CT scan of the abdomen and pelvis without contrast was performed. Coronal and sagittal reformatted images were obtained from the axial source images. Images were reviewed on a high-[employer] PACS workstation. Total exam DLP is 1130.48 mGy-cm. CTDIvol is 20.30 mGy. One or more of the following dose reduction techniques were used: Automated exposure control, adjustment of the mA and/ or kV according to patient size, use of iterative reconstruction technique. COMPARISON: None. FINDINGS: The lung bases are normal. There is no pleural effusion. The liver is normal in size and attenuation. There is no focal hepatic lesion. The gallbladder and bile ducts are normal. The spleen is normal in size. There is no focal splenic lesion. Both adrenals are normal with no enlargement or mass. The pancreas is unremarkable with no mass or evidence of pancreatitis. There is no renal mass or hydronephrosis. There is no renal calculus or ureteral calculus. The abdominal aorta is not dilated. There is no retroperitoneal lymphadenopathy or mass. There is no pelvic lymphadenopathy or mass. The bladder and distal ureters are normal. Previously noted calculus at the right ureterovesicle shanda ction is no longer present. Multiple phleboliths are present in the pelvis. The periappendiceal region is unremarkable with no evidence of appendicitis. The bowel and mesentery are normal. There is no free fluid or free gas. There are degenerative changes of the spine. There is no fracture or lytic lesion. IMPRESSION: 1. Previously noted calculus at the right ureterovesicle junction is no longer present. 2. Multiple phleboliths in the pelvis. 3. Degenerative changes of the spine. 4. Otherwise unremarkable noncontrast CT scan of the abdomen and pelvis. RPTAT: QQ .Tyler Tucker MD, Date Time Electronically viewed and signed by .Tyler Tucker MD, MD on 01/13/2017 16:52 .R/
[2017-01-13 20:56] VITALS: BP 120/75; RESP 18
[2017-01-13] MEDS: ACETAMINOPHEN 500 MG TAB PO PRN (23:46)
[2017-01-14] MEDS: ACCU-CHEK XX SCH (02:00)
[2017-01-14] MEDS: SOD CHLORIDE 0.45% 1,000 ML IV SCH ×2 (02:32→08:38)
[2017-01-14 02:49] VITALS: BP 146/48; RESP 20
[2017-01-14] MEDS: INSULIN ASPART [NOVOLOG] 3 ML PEN SC SCH (08:00)
[2017-01-14 08:25] VITALS: BP 111/63; RESP 20
[2017-01-14] MEDS: GABAPENTIN 100 MG CAP PO SCH ×2 (08:38→13:16)
[2017-01-14] MEDS: L ACIDOPHIL/B LACTIS/B LONGUM CAPSULE PO SCH (08:38)
[2017-01-14] MEDS: LOSARTAN 50 MG TAB PO SCH (08:38)
[2017-01-14] MEDS: ENOXAPARIN 30 MG/0.3 ML SYG SC SCH (08:39)
[2017-01-14] MEDS: ERTAPENEM SODIUM 1 GM in SOD CHLORIDE 0.9% 100 ML IVPB SCH (13:16)
[2017-01-14 15:51] VITALS: BP 144/83; RESP 19
== END 2017-01-14 17:31 | disposition home health service (06) | DRG 694 ==
LOC: PP2 15:53
PROVIDERS: ADMIT Internal Medicine; ATTEND Internal Medicine
DX: N20.0 Calculus of kidney (principal); N10 Acute pyelonephritis; E11.9 Type 2 diabetes mellitus without complications; B96.20 Unspecified Escherichia coli [E. coli] as the cause of diseases classified elsewhere; Z16.24 Resistance to multiple antibiotics; I10 Essential (primary) hypertension
CPT/HCPCS: 74176; 74177; 80048; 80053; 82270; 82728; 82962; 85025; 87040; 87086; J1335; J1650; J1815; J2185; Q9967

== ENCOUNTER → 2017-02-07 | Outpatient (CLI) | payer MEDICARE, OTHER ==
[~2017-02-07] MED LIST changes: +CHOL200073 PO; -CHOL400T29 PO; +FENO160T13 PO; +GABA100C14 PO; -IBUP400T22 PO; -IBUP800T25 PO; +MELO-216 PO
[2017-02-07 10:19] LABS: BASOPHILS % 0.4 % (0.0-2.0); EOSINOPHILS # 0.2 10^3/ul (0.0-0.5); EOSINOPHILS % 2.2 % (0.0-7.0); HEMATOCRIT 37.6 % (37.0-47.0); HEMOGLOBIN 12.1 g/dl (12.0-16.0); LYMPHOCYTES # 2.2 10^3/ul (0.8-2.9); LYMPHOCYTES % 24.6 % (15.0-51.0); MEAN CORPUSCULAR HEMOGLOBIN 25.6 pg (29.0-33.0); MEAN CORPUSCULAR HGB CONC 32.2 g/dl (32.0-37.0); MEAN CORPUSCULAR VOLUME 79.5 fl (82.0-101.0); MEAN PLATELET VOLUME 10.4 fl (7.4-10.4); MONOCYTE # 1.1 10^3/ul (0.3-0.9); MONOCYTES % 11.9 % (0.0-11.0); NEUTROPHIL # 5.4 10^3/ul (1.6-7.5); NEUTROPHILS % 60.2 % (39.0-77.0); PLATELET COUNT 258 10^3/UL (140-415); RED BLOOD COUNT 4.73 10^6/ul (4.20-5.40); RED CELL DISTRIBUTION WIDTH 15.8 % (11.5-14.5); WHITE BLOOD COUNT 8.9 10^3/ul (4.8-10.8)
[2017-02-07 10:36] LABS: ADD UMIC YES; UR ASCORBIC ACID NEGATIVE (NEGATIVE); UR BACTERIA FEW /HPF (NONE SEEN); UR BILIRUBIN (Dip) NEGATIVE (NEGATIVE); UR BLOOD (Dip) NEGATIVE (NEGATIVE); UR CLARITY CLEAR (CLEAR); UR COLOR YELLOW (YELLOW); UR GLUCOSE (Dip) NEGATIVE (NEGATIVE); UR KETONES (Dip) NEGATIVE (NEGATIVE); UR LEUKOCYTE ESTERASE (Dip) 3+ Leu/ul (NEGATIVE); UR NITRITE (Dip) NEGATIVE (NEGATIVE); UR RBC 3 /HPF (0-5); UR SPECIFIC GRAVITY (Dip) 1.008 (1.003-1.030); UR TOTAL PROTEIN (Dip) NEGATIVE (NEGATIVE); UR UROBILINOGEN (Dip) NEGATIVE (NEGATIVE)
[2017-02-07 10:41] LABS: CALCIUM 9.8 mg/dl (8.4-10.2); CREATININE 0.67 mg/dl (0.44-1.00); POTASSIUM 4.6 mmol/L (3.5-5.1)
== END | disposition home or self-care (01) ==
LOC: LAB 09:45
PROVIDERS: ATTEND Internal Medicine
DX: N39.0 Urinary tract infection, site not specified (principal)
CPT/HCPCS: 80048; 81001; 85025; 85651; 87086

== ENCOUNTER 2017-02-11 13:36 | Inpatient (IN) | payer MEDICARE, OTHER ==
[~2017-02-11] VITALS: Ht 167.6 cm; Wt 91.6 kg
[2017-02-11 17:44] VITALS: BP 136/79; PULSE 91; RESP 18
[2017-02-11 17:46] VITALS: Ht 167.6 cm; Wt 91.6 kg
[2017-02-11] MEDS ORDERED: CHOL200073 PO (18:04)
[2017-02-11] MEDS ORDERED: GABA100C14 PO (18:04)
[2017-02-11] MEDS ORDERED: LOSA25TA5 PO (18:04)
[2017-02-11] MEDS ORDERED: METF500T4 PO (18:04)
[2017-02-11] MEDS ORDERED: MELO-216 PO (18:04)
[2017-02-11] MEDS ORDERED: FENO160T13 PO (18:04)
[2017-02-11] MEDS ORDERED: ZOLPIDEM 5 MG TAB PO PRN (19:00)
[2017-02-11 19:27] LABS: BASOPHIL # 0.1 10^3/ul (0.0-0.1); BASOPHILS % 0.5 % (0.0-2.0); EOSINOPHILS # 0.2 10^3/ul (0.0-0.5); EOSINOPHILS % 2.3 % (0.0-7.0); HEMATOCRIT 35.5 % (37.0-47.0); HEMOGLOBIN 11.5 g/dl (12.0-16.0); LYMPHOCYTES # 2.1 10^3/ul (0.8-2.9); LYMPHOCYTES % 21.5 % (15.0-51.0); MEAN CORPUSCULAR HEMOGLOBIN 25.7 pg (29.0-33.0); MEAN CORPUSCULAR HGB CONC 32.4 g/dl (32.0-37.0); MEAN CORPUSCULAR VOLUME 79.4 fl (82.0-101.0); MEAN PLATELET VOLUME 10.1 fl (7.4-10.4); MONOCYTE # 0.8 10^3/ul (0.3-0.9); MONOCYTES % 8.3 % (0.0-11.0); NEUTROPHIL # 6.5 10^3/ul (1.6-7.5); NEUTROPHILS % 66.8 % (39.0-77.0); PLATELET COUNT 284 10^3/UL (140-415); RED BLOOD COUNT 4.47 10^6/ul (4.20-5.40); RED CELL DISTRIBUTION WIDTH 15.2 % (11.5-14.5); WHITE BLOOD COUNT 9.7 10^3/ul (4.8-10.8)
[2017-02-11] MEDS ORDERED: GLUCOSE GEL 15 GRAM TUBE BUCCAL PRN (19:30)
[2017-02-11] MEDS ORDERED: GLUCAGON 1 MG INJ IM PRN (19:30)
[2017-02-11] MEDS ORDERED: DEXTROSE 50% 50 ML SYRINGE IV PRN ×2 (19:30)
[2017-02-11] MEDS ORDERED: GLUCOSE GEL 15 GRAM TUBE PO PRN ×2 (19:30)
[2017-02-11 19:43] LABS: CALCIUM 9.7 mg/dl (8.4-10.2); CREATININE 0.69 mg/dl (0.44-1.00); POTASSIUM 4.3 mmol/L (3.5-5.1)
[2017-02-11 20:07] VITALS: BP 139/80; RESP 18
[2017-02-11] MEDS ORDERED: MEROPENEM 1 GM/50ML(PMX) 50 ML IVPB SCH (20:30)
[2017-02-11] MEDS: INSULIN ASPART [NOVOLOG] 3 ML PEN SC SCH (21:00)
[2017-02-11] MEDS: PHENAZOPYRIDINE 100 MG TAB PO SCH (21:45)
[2017-02-11] MEDS: GABAPENTIN 100 MG CAP PO SCH (21:45)
[2017-02-11] MEDS: SOD CHLORIDE 0.45% 1,000 ML IV SCH (22:15)
[2017-02-11] MEDS: MEROPENEM 1 GM/50ML(PMX) 50 ML IVPB SCH ×2 (22:51→22:59)
[2017-02-12] MEDS: ACCU-CHEK XX SCH (02:00)
[2017-02-12 02:49] VITALS: BP 113/56; RESP 18
[2017-02-12] MEDS: INSULIN ASPART [NOVOLOG] 3 ML PEN SC SCH ×4 (08:00→20:36)
[2017-02-12 08:36] VITALS: BP 133/74; RESP 18
[2017-02-12] MEDS: GABAPENTIN 100 MG CAP PO SCH ×3 (08:43→20:37)
[2017-02-12] MEDS: PHENAZOPYRIDINE 100 MG TAB PO SCH ×2 (08:43→20:37)
[2017-02-12] MEDS: CHOLECALCIFEROL 2,000 UNIT CAP PO SCH (08:43)
[2017-02-12] MEDS: ASCORBIC ACID 500 MG TAB PO SCH (08:43)
[2017-02-12] MEDS: FENOFIBRATE 145 MG TAB PO SCH (08:43)
[2017-02-12] MEDS: LOSARTAN 25 MG TAB PO SCH (08:44)
--- NOTE | 2017-02-12 10:09 | HP ---
DATE OF ADMISSION: 02/11/2017 HISTORY OF PRESENT ILLNESS: The patient is a 71-year-old lady well known to me from previous follow-up, status post multiple hospitalizations for recurrent pyelonephritis. Last discharge about a month ago when she was placed on prolonged course of Merrem for E coli ESBL and patient presents with recurrent right flank pain, cloudy urine, fatigue and was evaluated in my office last week, and the urine culture grew more than 100,000 colony count of E coli ESBL and patient was directly admitted for IV antibiotics and for ID consultation. The patient was hospitalized in November 2016 when she was given Rocephin followed by imipenem, subsequently was readmitted in November 2016 followed by another admission in December and January and the patient also had a stone in the right ureter, which she passed recently. REVIEW OF SYSTEMS: HEAD: No headache, focal weakness or numbness. EYES: No blurry vision or glaucoma. ENT: Noncontributory. NECK: No history of thyroid disease. CHEST: No bronchitis, afebrile. The patient does not smoke. HEART: No PND or orthopnea or palpitations. GASTROINTESTINAL: No constipation, diarrhea, change in bowel habits. The patient has had prior history of diverticulosis and complains of right and left lower quadrant pain on and off and she has been treated in the past with Cipro and Flagyl while she was visiting [facility] early part of the year. GENITOURINARY: As above. MUSCULOSKELETAL: History of degenerative joint disease of both knees. MEDICATIONS: Include losartan 25 mg q.day, metformin 500 mg p.o. q.day, vitamin D 2000 units q.day, omeprazole 40 mg p.o. q.day. FAMILY HISTORY: Negative for diabetes, hypertension or cancer. The patient does have diabetes mellitus type 2. PHYSICAL EXAMINATION: GENERAL APPEARANCE: The patient is an averagely built female, who is presently in no acute distress. VITAL SIGNS: Temperature 97.7, blood pressure 133/74, respiratory 20 per minute, O2 sat 96 percent on room air. HEENT: Head normocephalic, mild pallor. No cyanosis or icterus. Tongue is moist. NECK: Supple. No thyromegaly. No lymphadenopathy. CHEST: Clinically clear. HEART: S1, S2. No audible gallops. ABDOMEN: Soft. No definite tenderness. Mild right and left flank tenderness present. EXTREMITIES: No edema. Homans sign is negative. NEUROLOGIC: No localizing . LABORATORY: Initial WBC count 9.7, hematocrit 35.5, platelet count 284,000. Sodium 145, potassium 4.3, BUN 12, creatinine 0.69. Hemoglobin A1c is 6.0. Fasting glucose is 111. Urine culture done on 02/07 shows E coli ESBL sensitive to gentamicin and imipenem, nitrofurantoin and tobramycin. IMPRESSION: 1. Recurrent urinary tract infection, likely pyelonephritis with Escherichia coli extended-spectrum beta-lactamase reinfection with the same organism. There was a prior evidence of a nidus with stone, which she passed. She was not clear as to the reason for the infection. 2. Diabetes mellitus type 2. 3. Mild hypertension. 4. Degenerative joint disease. PLAN: The patient will be admitted to medical floor and we will start the patient on meropenem IV and we will request Dr. Marquez from GI standpoint and Dr. Bergeron from ID standpoint. Patient will likely need to be on a long-term prophylactic course with nitrofurantoin. Dictated By: Gm Montesinos MD /cruzito/cherelle /Document#: [id number]
--- NOTE | 2017-02-12 10:31 | CONS ---
Date/Time of Note Date/Time of Note DATE: 02/12/17 TIME: 10:23 Assessment/Plan Assessment/Plan Chief Complaint/Hosp Course 1) recurrent UTI with same organism pt will likely new prophylaxis after current treatment is completed with macrobid 100mg QD continue with IV antibiotic for 2 weeks await urology consult consider renal u/s will increase dose of merrem to [id number] when pt ready for discharge would change to ertapenem daily as outpatient 2) DM 3) HTN Problems: Consultation Date/Type/Reason Admit Date/Time Feb 11, 2017 at 17:03 Date of Consultation: Feb 12, 2017 Type of Consultation: ID Hx of Present Illness pt finished treatment for e.coli +ESBL in urine a few weeks ago and within a few days she noticed burning with urination she has periodic R sided back pain that was worse recently She has chronic back pain but this was a new pain no N, V, D No F, C but she had a sweat last night no SOB, cough, rashes, joint pains Past Medical History HTN, DM, kidney stones, arthritis of knees Past Surgical History Past Surgical Hx: no surgical history Social History Smoking Status: Never smoker Exam/Review of Systems Vital Signs Vitals Vital Signs Date Time Temp Pulse Resp B/P Pulse Ox O2 Delivery O2 Flow Rate FiO2 02/12/17 08:36 97.7 77 18 133/74 96 02/11/17 17:44 Room Air Intake and Output 02/11/17 02/11/17 02/12/17 15:00 23:00 07:00 Intake Total 35 ml 1170 ml Balance 35 ml 1170 ml Exam Constitutional: alert, oriented Head: normocephalic Eyes: nl sclera ENMT: mucosa pink and moist Respiratory: clear to auscultation Cardiovascular: regular rate and rhythm Gastrointestinal: non-tender, other (no CVAT), soft Musculoskeletal: nl extremities to inspection Results Result Diagram: 02/11/17191202/11/171917 Results 24 hrs Laboratory Tests Test 02/11/17 19:13 02/11/17 19:18 02/12/17 08:05 White Blood Count 9.7 Red Blood Count 4.47 Hemoglobin 11.5 L Hematocrit 35.5 L Mean Corpuscular Volume 79.4 L Mean Corpuscular Hemoglobin 25.7 L Mean Corpuscular Hemoglobin Concent 32.4 Red Cell Distribution Width 15.2 H Platelet Count 284 Mean Platelet Volume 10.1 Neutrophils % 66.8 Lymphocytes % 21.5 Monocytes % 8.3 Eosinophils % 2.3 Basophils % 0.5 Nucleated Red Blood Cells % 0.0 Neutrophils # 6.5 Lymphocytes # 2.1 Monocytes # 0.8 Eosinophils # 0.2 Basophils # 0.1 Nucleated Red Blood Cells # 0.0 Hemoglobin A1c 6.0 H Sodium Level 145 H Potassium Level 4.3 Chloride Level 104 Carbon Dioxide Level 25 Anion Gap 20 H Blood Urea Nitrogen 12 Creatinine 0.69 Glucose Level 111 Calcium Level 9.7 Bedside Glucose 124 Medications Medications Current Medications Sodium Chloride (1/2 NS) 1,000 ml @ 50 mls/hr Q20H IV Last administered on 02/11 22:15; Admin Dose 50 MLS/HR; Start 02/11/17 at 19:00 Phenazopyridine HCl (Pyridium) 100 mg BID PO Last administered on 02/12/17 08: 43; Admin Dose 100 MG; Start 02/11/17 at 21:00 Ascorbic Acid (Vitamin C) 500 mg DAILY PO Last administered on 02/12/17 08:43; Admin Dose 500 MG; Start 02/12/17 at 09:00 Zolpidem Tartrate (Ambien) 5 mg HS PRN PO INSOMNIA; Start 02/11/17 at 19:00 Fenofibrate (Tricor) 145 mg DAILY PO Last administered on 02/12/17 08:43; Admin Dose 145 MG; Start 02/12/17 at 09:00 Acetaminophen (Tylenol Tab) 500 mg Q6H PRN PO PAIN AND OR ELEVATED TEMP; Start 02/11/17 at 19:00 Cholecalciferol (Vitamin D) 2,000 unit DAILY PO Last administered on 02/12/17 08:43; Admin Dose 2,000 UNIT; Start 02/12/17 at 09:00 Gabapentin (Neurontin) 100 mg TID PO Last administered on 02/12/17 08:43; Admin Dose 100 MG; Start 02/11/17 at 21:00 Losartan Potassium (Cozaar) 25 mg DAILY PO Last administered on 02/12/17 08:44 ; Admin Dose 25 MG; Start 02/12/17 at 09:00 Diagnostic Test (Pha) (Accu-Chek) 1 ea 02 XX ; Start 02/12/17 at 02:00 Miscellaneous Information 1 ea NOTE XX ; Start 02/11/17 at 19:30 Glucose (Glutose) 15 gm Q15M PRN PO DECREASED GLUCOSE; Start 02/11/17 at 19:30 Glucose (Glutose) 22.5 gm Q15M PRN PO DECREASED GLUCOSE; Start 02/11/17 at 19:30 Dextrose (D50w Syringe) 25 ml Q15M PRN IV DECREASED GLUCOSE; Start 02/11/17 at 19:30 Dextrose (D50w Syringe) 50 ml Q15M PRN IV DECREASED GLUCOSE; Start 02/11/17 at 19:30 Glucagon (Glucagen) 1 mg Q15M PRN IM DECREASED GLUCOSE; Start 02/11/17 at 19:30 Glucose 15 gm 15 gm Q15M PRN BUCCAL DECREASED GLUCOSE; Start 02/11/17 at 19:30 Meropenem/Sodium Chloride (Merrem 1 Gm/50 ml (Pmx)) 50 ml @ 100 mls/hr Q24H IVPB Last administered on 02/11/17t 22:59; Admin Dose 100 MLS/HR; Start 02/11/17 at 23:00 ROGERIO BRAN MD Feb 12, 2017 10:31
[2017-02-12] MEDS: ACETAMINOPHEN 500 MG TAB PO PRN ×2 (12:38→23:11)
[2017-02-12] MEDS: MEROPENEM 1 GM/50ML(PMX) 50 ML IVPB SCH ×2 (14:22→21:36)
[2017-02-12 14:30] VITALS: BP 111/55; RESP 18
[2017-02-12] MEDS: SOD CHLORIDE 0.45% 1,000 ML IV SCH (17:07)
--- NOTE | 2017-02-12 19:14 | CONS ---
Date/Time of Note Date/Time of Note DATE: 02/12/17 TIME: 19:07 Assessment/Plan Assessment/Plan Chief Complaint/Hosp Course Recurrent urinary tract infection with same organism ESBL E. coli, patient did have a kidney stone during her last admission and she must have passed that as on the repeated CT scan the stone was not seen. Since the patient still have recurrent urinary tract infection with the same organism I will plan on doing a cystoscopy and retrograde pyelograms after she has been treated with antibiotics to sterilize her urine prior to the cystoscopy. I will also check her postvoid residual to make sure that she does not have high postvoid residual which could facilitate the recurrence of the infection Problems: Consultation Date/Type/Reason Admit Date/Time Feb 11, 2017 at 17:03 Date of Consultation: Feb 12, 2017 Type of Consultation: Urology Reason for Consultation Recurrent urinary tract infection with same organism ESBL Referring Provider: OLGA LAMBERT MD Hx of Present Illness 71-year-old female has had recurrent urinary tract infection and multiple hospital admission for the same problem. During her last admission she did have a 3 mm stone which she passed as it was not seen on the last CT scan that she had. Patient went home did well for a few days then she started having cloudy urine and dysuria even after she urinates she continued to have some ache. She did have a urine culture as an outpatient in the hospital here before her admission and that showed again 100,000 E. coli ESBL Constitutional: no complaints Eyes: no complaints ENT: no complaints Respiratory: no complaints Cardiovascular: no complaints Gastrointestinal: no complaints Genitourinary: dysuria, other (Cloudy urine) Musculoskeletal: no complaints Neurologic: no complaints Endocrine: other (Patient has diabetes) Past Medical History Medical History: high cholesterol, hypertension, urinary tract infection Past Surgical History Past Surgical Hx: no surgical history Family History Significant Family History: no pertinent family hx Social History Alcohol Use: none Smoking Status: Never smoker Other Social History She is a 2 para 2 normal deliveries Exam/Review of Systems Vital Signs Vitals Vital Signs Date Time Temp Pulse Resp B/P Pulse Ox O2 Delivery O2 Flow Rate FiO2 02/12/17 14:30 98.3 77 18 111/55 96 02/11/17 17:44 Room Air Intake and Output 02/11/17 02/11/17 02/12/17 15:00 23:00 07:00 Intake Total 35 ml 1170 ml Balance 35 ml 1170 ml Exam Constitutional: alert, oriented Psych: no complaints Head: normocephalic Eyes: nl conjunctiva ENMT: nl external ears & nose Neck: supple Respiratory: normal air movement Cardiovascular: nl pulses Gastrointestinal: soft Genitourinary - Female: other (Suprapubic tenderness), No CVA tenderness Extremities: normal pulses Skin: nl turgor Results Result Diagram: 02/11/17191202/11/171917 Results 24 hrs Laboratory Tests Test 02/11/17 19:13 02/11/17 19:18 02/12/17 08:05 02/12/17 12:35 White Blood Count 9.7 Red Blood Count 4.47 Hemoglobin 11.5 L Hematocrit 35.5 L Mean Corpuscular Volume 79.4 L Mean Corpuscular Hemoglobin 25.7 L Mean Corpuscular Hemoglobin Concent 32.4 Red Cell Distribution Width 15.2 H Platelet Count 284 Mean Platelet Volume 10.1 Neutrophils % 66.8 Lymphocytes % 21.5 Monocytes % 8.3 Eosinophils % 2.3 Basophils % 0.5 Nucleated Red Blood Cells % 0.0 Neutrophils # 6.5 Lymphocytes # 2.1 Monocytes # 0.8 Eosinophils # 0.2 Basophils # 0.1 Nucleated Red Blood Cells # 0.0 Hemoglobin A1c 6.0 H Sodium Level 145 H Potassium Level 4.3 Chloride Level 104 Carbon Dioxide Level 25 Anion Gap 20 H Blood Urea Nitrogen 12 Creatinine 0.69 Glucose Level 111 Calcium Level 9.7 Bedside Glucose 124 107 Test 02/12/17 17:10 Bedside Glucose 105 Medications Medications Current Medications Sodium Chloride (1/2 NS) 1,000 ml @ 50 mls/hr Q20H IV Last administered on 02/12 17:07; Admin Dose 50 MLS/HR; Start 02/11/17 at 19:00 Phenazopyridine HCl (Pyridium) 100 mg BID PO Last administered on 02/12/17 08: 43; Admin Dose 100 MG; Start 02/11/17 at 21:00 Ascorbic Acid (Vitamin C) 500 mg DAILY PO Last administered on 02/12/17 08:43; Admin Dose 500 MG; Start 02/12/17 at 09:00 Zolpidem Tartrate (Ambien) 5 mg HS PRN PO INSOMNIA; Start 02/11/17 at 19:00 Fenofibrate (Tricor) 145 mg DAILY PO Last administered on 02/12/17 08:43; Admin Dose 145 MG; Start 02/12/17 at 09:00 Acetaminophen (Tylenol Tab) 500 mg Q6H PRN PO PAIN AND OR ELEVATED TEMP Last administered on 02/12/17 12:38; Admin Dose 500 MG; Start 02/11/17 at 19:00 Cholecalciferol (Vitamin D) 2,000 unit DAILY PO Last administered on 02/12/17 08:43; Admin Dose 2,000 UNIT; Start 02/12/17 at 09:00 Gabapentin (Neurontin) 100 mg TID PO Last administered on 02/12/17 12:38; Admin Dose 100 MG; Start 02/11/17 at 21:00 Losartan Potassium (Cozaar) 25 mg DAILY PO Last administered on 02/12/17 08:44 ; Admin Dose 25 MG; Start 02/12/17 at 09:00 Diagnostic Test (Pha) (Accu-Chek) 1 ea 02 XX ; Start 02/12/17 at 02:00 Miscellaneous Information 1 ea NOTE XX ; Start 02/11/17 at 19:30 Glucose (Glutose) 15 gm Q15M PRN PO DECREASED GLUCOSE; Start 02/11/17 at 19:30 Glucose (Glutose) 22.5 gm Q15M PRN PO DECREASED GLUCOSE; Start 02/11/17 at 19:30 Dextrose (D50w Syringe) 25 ml Q15M PRN IV DECREASED GLUCOSE; Start 02/11/17 at 19:30 Dextrose (D50w Syringe) 50 ml Q15M PRN IV DECREASED GLUCOSE; Start 02/11/17 at 19:30 Glucagon (Glucagen) 1 mg Q15M PRN IM DECREASED GLUCOSE; Start 02/11/17 at 19:30 Glucose 15 gm 15 gm Q15M PRN BUCCAL DECREASED GLUCOSE; Start 02/11/17 at 19:30 Meropenem/Sodium Chloride (Merrem 1 Gm/50 ml (Pmx)) 50 ml @ 100 mls/hr Q8 IVPB Last administered on 02/12/17 14:22; Admin Dose 100 MLS/HR; Start 02/12/17 at 14:00 CYNDI HATHAWAY MD Feb 12, 2017 19:14
[2017-02-12 19:33] VITALS: BP 125/61; RESP 20
[2017-02-13] MEDS: ACCU-CHEK XX SCH (01:52)
[2017-02-13 02:02] VITALS: BP 107/58; RESP 20
[2017-02-13] MEDS: MEROPENEM 1 GM/50ML(PMX) 50 ML IVPB SCH ×3 (05:52→21:08)
--- NOTE | 2017-02-13 06:26 | CONS ---
Date/Time of Note Date/Time of Note DATE: 02/13/17 TIME: 06:20 Assessment/Plan Assessment/Plan Chief Complaint/Hosp Course 1) recurrent UTI with same organism pt will likely new prophylaxis after current treatment is completed with macrobid 100mg QD continue with IV antibiotic for 2 weeks await urology consult consider renal u/s will increase dose of merrem to [id number] when pt ready for discharge would change to ertapenem daily as outpatient 02/13 - agree with plan for cystoscopy case management referral made for home ertapenem at 1.5gm q24 thru 02/24 2) DM 3) HTN Problems: Consultation Date/Type/Reason Admit Date/Time Feb 11, 2017 at 17:03 Initial Consult Date 02/12/17 Type of Consultation: ID Referring Provider: OLGA LAMBERT MD 24 HR Interval Summary Free Text/Dictation spoke to nurse, doing well no back or flank pain no N, V, D she had a KYLE and has some upset stomach Exam/Review of Systems Vital Signs Vitals Vital Signs Date Time Temp Pulse Resp B/P Pulse Ox O2 Delivery O2 Flow Rate FiO2 02/13/17 02:02 97.6 82 20 107/58 97 02/11/17 17:44 Room Air Intake and Output 02/12/17 02/12/17 02/13/17 15:00 23:00 07:00 Intake Total 50 ml 2450 ml 480 ml Output Total 700 ml Balance 50 ml 2450 ml -220 ml Exam Constitutional: alert, oriented Respiratory: clear to auscultation Cardiovascular: regular rate and rhythm Gastrointestinal: non-tender, soft Results Result Diagram: 02/11/17191202/11/171917 Results 24 hrs Laboratory Tests Test 02/12/17 08:05 02/12/17 12:35 02/12/17 17:10 02/12/17 20:36 Bedside Glucose 124 107 105 151 Medications Medications Current Medications Sodium Chloride (1/2 NS) 1,000 ml @ 50 mls/hr Q20H IV Last administered on 02/12 17:07; Admin Dose 50 MLS/HR; Start 02/11/17 at 19:00 Phenazopyridine HCl (Pyridium) 100 mg BID PO Last administered on 02/12/17 20: 37; Admin Dose 100 MG; Start 02/11/17 at 21:00 Ascorbic Acid (Vitamin C) 500 mg DAILY PO Last administered on 02/12/17 08:43; Admin Dose 500 MG; Start 02/12/17 at 09:00 Zolpidem Tartrate (Ambien) 5 mg HS PRN PO INSOMNIA; Start 02/11/17 at 19:00 Fenofibrate (Tricor) 145 mg DAILY PO Last administered on 02/12/17 08:43; Admin Dose 145 MG; Start 02/12/17 at 09:00 Acetaminophen (Tylenol Tab) 500 mg Q6H PRN PO PAIN AND OR ELEVATED TEMP Last administered on 02/12/17 23:11; Admin Dose 500 MG; Start 02/11/17 at 19:00 Cholecalciferol (Vitamin D) 2,000 unit DAILY PO Last administered on 02/12/17 08:43; Admin Dose 2,000 UNIT; Start 02/12/17 at 09:00 Gabapentin (Neurontin) 100 mg TID PO Last administered on 02/12/17 20:37; Admin Dose 100 MG; Start 02/11/17 at 21:00 Losartan Potassium (Cozaar) 25 mg DAILY PO Last administered on 02/12/17 08:44 ; Admin Dose 25 MG; Start 02/12/17 at 09:00 Diagnostic Test (Pha) (Accu-Chek) 1 ea 02 XX ; Start 02/12/17 at 02:00 Miscellaneous Information 1 ea NOTE XX ; Start 02/11/17 at 19:30 Glucose (Glutose) 15 gm Q15M PRN PO DECREASED GLUCOSE; Start 02/11/17 at 19:30 Glucose (Glutose) 22.5 gm Q15M PRN PO DECREASED GLUCOSE; Start 02/11/17 at 19:30 Dextrose (D50w Syringe) 25 ml Q15M PRN IV DECREASED GLUCOSE; Start 02/11/17 at 19:30 Dextrose (D50w Syringe) 50 ml Q15M PRN IV DECREASED GLUCOSE; Start 02/11/17 at 19:30 Glucagon (Glucagen) 1 mg Q15M PRN IM DECREASED GLUCOSE; Start 02/11/17 at 19:30 Glucose 15 gm 15 gm Q15M PRN BUCCAL DECREASED GLUCOSE; Start 02/11/17 at 19:30 Meropenem/Sodium Chloride (Merrem 1 Gm/50 ml (Pmx)) 50 ml @ 100 mls/hr Q8 IVPB Last administered on 02/13/17t 05:52; Admin Dose 100 MLS/HR; Start 02/12/17 at 14:00 ROGERIO BRAN MD Feb 13, 2017 06:26
[2017-02-13 08:00] VITALS: BP 107/73; RESP 18
[2017-02-13] MEDS: INSULIN ASPART [NOVOLOG] 3 ML PEN SC SCH ×4 (08:00→21:00)
[2017-02-13] MEDS: ASCORBIC ACID 500 MG TAB PO SCH (09:19)
[2017-02-13] MEDS: GABAPENTIN 100 MG CAP PO SCH ×3 (09:19→21:08)
[2017-02-13] MEDS: CHOLECALCIFEROL 2,000 UNIT CAP PO SCH (09:19)
[2017-02-13] MEDS: FENOFIBRATE 145 MG TAB PO SCH (09:20)
[2017-02-13] MEDS: PHENAZOPYRIDINE 100 MG TAB PO SCH ×2 (09:20→22:36)
[2017-02-13] MEDS: LOSARTAN 25 MG TAB PO SCH (09:20)
[2017-02-13 14:00] VITALS: BP 132/66; RESP 16
[2017-02-13] MEDS: SOD CHLORIDE 0.45% 1,000 ML IV SCH (16:02)
--- NOTE | 2017-02-13 16:08 | PN ---
DATE: 02/13/2017 SUBJECTIVE DATA: The patient is awake, alert, some flank pains. No dysuria. PHYSICAL EXAMINATION: GENERAL: In no acute distress. PHYSICAL EXAMINATION: Temperature 97.8, blood pressure 132/66. CHEST: Clinically clear. Negative flank tenderness. EXTREMITIES: No edema. Homans sign is negative. LABORATORY DATA: Blood cultures negative so far. Dr. Marquez's recommendations noted. IMPRESSION: 1. Recurrent urinary tract infection, likely pyelo with Escherichia coli, Extended-Spectrum Beta-Lactamase. 2. Diabetes mellitus type 2, well controlled. PLAN: Will proceed with urology workup including cystoscopy and retrograde pyelogram after the stabilization of the urine prior to cystoscopy. Continue meropenem for now. Monitor renal function. Dictated By: Gm Montesinos MD /[email or web address]/clint /Document#: [id number]
[2017-02-13 19:35] VITALS: BP 108/58; RESP 18
--- NOTE | 2017-02-13 20:32 | PN ---
Date/Time of Note Date/Time of Note DATE: 02/13/17 TIME: 20:26 Assessment/Plan VTE Prophylaxis VTE Prophylaxis Intervention: SCD's Lines/Catheters IV Catheter Type (from [facility]): Peripheral IV Urinary Cath still in place: No Assessment/Plan Chief Complaint/Hosp Course Recurrent urinary tract infection with same organism ESBL E. coli, patient did have a kidney stone during her last admission and she must have passed that , as on the repeated CT scan the stone was not seen. Since the patient still have recurrent urinary tract infection with the same organism I will plan on doing a cystoscopy and retrograde pyelograms after she has been treated with antibiotics to sterilize her urine prior to the cystoscopy. Problems: Subjective 24 Hr Interval Summary Free Text/Dictation Patient states that she is feeling better she has no nausea or vomiting no chills or fever no dysuria no abdominal or suprapubic pain Constitutional: No chills, No febrile Eyes: no complaints Respiratory: no complaints Cardiovascular: no complaints Gastrointestinal: no complaints Genitourinary: No dysuria, No hematuria Musculoskeletal: No back pain Skin: no complaints Neurologic: no complaints Endocrine: no complaints Exam/Review of Systems Vital Signs Vitals Vital Signs Date Time Temp Pulse Resp B/P Pulse Ox O2 Delivery O2 Flow Rate FiO2 02/13/17 14:00 97.8 85 16 132/66 96 02/11/17 17:44 Room Air Intake and Output 02/12/17 02/12/17 02/13/17 14:59 22:59 06:59 Intake Total 50 ml 2450 ml 1130 ml Output Total 700 ml Balance 50 ml 2450 ml 430 ml Exam Constitutional: alert, oriented, No distress Psych: no complaints Head: normocephalic Eyes: nl conjunctiva ENMT: nl external ears & nose Neck: non-tender, supple Respiratory: normal air movement Cardiovascular: No edema Gastrointestinal: nl liver, spleen, soft Genitourinary - Female: No CVA tenderness Musculoskeletal: nl extremities to inspection Extremities: normal pulses, No calf tenderness Results Result Diagram: 02/11/17191202/11/171917 Results 24 hrs Laboratory Tests Test 02/12/17 20:36 02/13/17 07:56 02/13/17 11:48 02/13/17 17:25 Bedside Glucose 151 115 120 159 Medications Medications Current Medications Sodium Chloride (1/2 NS) 1,000 ml @ 50 mls/hr Q20H IV Last administered on 16:02; Admin Dose 50 MLS/HR; Start 02/11/17 at 19:00 Phenazopyridine HCl (Pyridium) 100 mg BID PO Last administered on 02/13/17 09: 20; Admin Dose 100 MG; Start 02/11/17 at 21:00 Ascorbic Acid (Vitamin C) 500 mg DAILY PO Last administered on 02/13/17 09:19 ; Admin Dose 500 MG; Start 02/12/17 at 09:00 Zolpidem Tartrate (Ambien) 5 mg HS PRN PO INSOMNIA; Start 02/11/17 at 19:00 Fenofibrate (Tricor) 145 mg DAILY PO Last administered on 02/13/17 09:20; Admin Dose 145 MG; Start 02/12/17 at 09:00 Acetaminophen (Tylenol Tab) 500 mg Q6H PRN PO PAIN AND OR ELEVATED TEMP Last administered on 02/12/17 23:11; Admin Dose 500 MG; Start 02/11/17 at 19:00 Cholecalciferol (Vitamin D) 2,000 unit DAILY PO Last administered on 02/13/17 09:19; Admin Dose 2,000 UNIT; Start 02/12/17 at 09:00 Gabapentin (Neurontin) 100 mg TID PO Last administered on 02/13/17 13:25; Admin Dose 100 MG; Start 02/11/17 at 21:00 Losartan Potassium (Cozaar) 25 mg DAILY PO Last administered on 02/13/17 09:20 ; Admin Dose 25 MG; Start 02/12/17 at 09:00 Diagnostic Test (Pha) (Accu-Chek) 1 ea 02 XX ; Start 02/12/17 at 02:00 Miscellaneous Information 1 ea NOTE XX ; Start 02/11/17 at 19:30 Glucose (Glutose) 15 gm Q15M PRN PO DECREASED GLUCOSE; Start 02/11/17 at 19:30 Glucose (Glutose) 22.5 gm Q15M PRN PO DECREASED GLUCOSE; Start 02/11/17 at 19:30 Dextrose (D50w Syringe) 25 ml Q15M PRN IV DECREASED GLUCOSE; Start 02/11/17 at 19:30 Dextrose (D50w Syringe) 50 ml Q15M PRN IV DECREASED GLUCOSE; Start 02/11/17 at 19:30 Glucagon (Glucagen) 1 mg Q15M PRN IM DECREASED GLUCOSE; Start 02/11/17 at 19:30 Glucose 15 gm 15 gm Q15M PRN BUCCAL DECREASED GLUCOSE; Start 02/11/17 at 19:30 Meropenem/Sodium Chloride (Merrem 1 Gm/50 ml (Pmx)) 50 ml @ 100 mls/hr Q8 IVPB Last administered on 02/13/17t 13:25; Admin Dose 100 MLS/HR; Start 02/12/17 at 14:00 CYNDI HATHAWAY MD Feb 13, 2017 20:32
[2017-02-13] MEDS: ACETAMINOPHEN 500 MG TAB PO PRN (21:08)
[2017-02-14] MEDS: ACCU-CHEK XX SCH (02:00)
[2017-02-14 02:05] VITALS: BP 130/71; RESP 18
[2017-02-14] MEDS: MEROPENEM 1 GM/50ML(PMX) 50 ML IVPB SCH ×3 (05:58→21:27)
[2017-02-14] MEDS: SOD CHLORIDE 0.45% 1,000 ML IV SCH ×2 (06:01→18:12)
[2017-02-14 07:20] VITALS: BP 134/68; RESP 16
[2017-02-14] MEDS: INSULIN ASPART [NOVOLOG] 3 ML PEN SC SCH ×4 (08:00→21:00)
[2017-02-14] MEDS: FENOFIBRATE 145 MG TAB PO SCH (09:03)
[2017-02-14] MEDS: GABAPENTIN 100 MG CAP PO SCH ×3 (09:04→21:15)
[2017-02-14] MEDS: CHOLECALCIFEROL 2,000 UNIT CAP PO SCH (09:04)
[2017-02-14] MEDS: PHENAZOPYRIDINE 100 MG TAB PO SCH ×2 (09:04→21:00)
[2017-02-14] MEDS: LOSARTAN 25 MG TAB PO SCH (09:04)
[2017-02-14] MEDS: ASCORBIC ACID 500 MG TAB PO SCH (09:04)
--- NOTE | 2017-02-14 10:52 | PN ---
DATE: 02/14/2017 SUBJECTIVE: The patient has mild headache this morning, was not hypoglycemic. In fact, blood glucose level checked after she says she had a coffee and a cookie was 163. Denies any flank pain today. No leg cramps. Appetite is fair. OBJECTIVE DATA: VITAL SIGNS: The patient is afebrile. Temperature 97.9, blood pressure 134, 68, O2 sat 97 percent. HEAD: Normocephalic. CHEST: Clinically clear. HEART: S1, S2. No gallops. EXTREMITIES: No edema. LABORATORY AND DIAGNOSTIC DATA: Repeat urine culture is pending. IMPRESSION: 1. Recurrent urinary tract infection, likely pyelonephritis with Escherichia coli with extended-spectrum beta-lactamase. 2. MDR . 3. Diabetes mellitus type 2, well controlled. PLAN: Continue urology workup per Dr. Marquez. Continue IV antibiotics, and a repeat urine culture is pending. We will start her on Lovenox, give her 3 doses, last 1 on Friday. Dictated By: Gm Montesinos MD /[email or web address]/ec /Document#: [id number]
[2017-02-14] MEDS: ENOXAPARIN 30 MG/0.3 ML SYG SC SCH (11:57)
--- NOTE | 2017-02-14 12:42 | CONS ---
Date/Time of Note Date/Time of Note DATE: 02/14/17 TIME: 12:41 Assessment/Plan Assessment/Plan Chief Complaint/Hosp Course 1) recurrent UTI with same organism pt will likely new prophylaxis after current treatment is completed with macrobid 100mg QD continue with IV antibiotic for 2 weeks await urology consult consider renal u/s will increase dose of merrem to [id number] when pt ready for discharge would change to ertapenem daily as outpatient 02/13 - agree with plan for cystoscopy case management referral made for home ertapenem at 1.5gm q24 thru 02/24 02/14 - repeat urine cx is NGTD cytoscopy on friday d/c pyridium 2) DM 3) HTN Problems: Consultation Date/Type/Reason Admit Date/Time Feb 11, 2017 at 17:03 Initial Consult Date 02/12/17 Type of Consultation: ID Referring Provider: OLGA LAMBERT MD 24 HR Interval Summary Free Text/Dictation feels ok gets KYLE she thinks is from pyridium no N, V, D Exam/Review of Systems Vital Signs Vitals Vital Signs Date Time Temp Pulse Resp B/P Pulse Ox O2 Delivery O2 Flow Rate FiO2 02/14/17 07:20 97.9 81 16 134/68 97 02/11/17 17:44 Room Air Intake and Output 02/13/17 02/13/17 02/14/17 15:00 23:00 07:00 Intake Total 50 ml 1975 ml 920 ml Balance 50 ml 1975 ml 920 ml Exam Constitutional: alert, oriented ENMT: mucosa pink and moist Respiratory: clear to auscultation Cardiovascular: regular rate and rhythm Gastrointestinal: non-tender, soft Results Result Diagram: 02/11/17191202/11/171917 Results 24 hrs Laboratory Tests Test 02/13/17 17:25 02/13/17 21:12 02/14/17 07:56 02/14/17 11:55 Bedside Glucose 159 133 163 121 Medications Medications Current Medications Sodium Chloride (1/2 NS) 1,000 ml @ 50 mls/hr Q20H IV Last administered on 16:02; Admin Dose 50 MLS/HR; Start 02/11/17 at 19:00 Phenazopyridine HCl (Pyridium) 100 mg BID PO Last administered on 02/14/17 09: 04; Admin Dose 100 MG; Start 02/11/17 at 21:00 Ascorbic Acid (Vitamin C) 500 mg DAILY PO Last administered on 02/14/17 09:04 ; Admin Dose 500 MG; Start 02/12/17 at 09:00 Zolpidem Tartrate (Ambien) 5 mg HS PRN PO INSOMNIA; Start 02/11/17 at 19:00 Fenofibrate (Tricor) 145 mg DAILY PO Last administered on 02/14/17 09:03; Admin Dose 145 MG; Start 02/12/17 at 09:00 Acetaminophen (Tylenol Tab) 500 mg Q6H PRN PO PAIN AND OR ELEVATED TEMP Last administered on 02/13/17 21:08; Admin Dose 500 MG; Start 02/11/17 at 19:00 Cholecalciferol (Vitamin D) 2,000 unit DAILY PO Last administered on 02/14/17 09:04; Admin Dose 2,000 UNIT; Start 02/12/17 at 09:00 Gabapentin (Neurontin) 100 mg TID PO Last administered on 02/14/17 09:04; Admin Dose 100 MG; Start 02/11/17 at 21:00 Losartan Potassium (Cozaar) 25 mg DAILY PO Last administered on 02/14/17 09:04 ; Admin Dose 25 MG; Start 02/12/17 at 09:00 Diagnostic Test (Pha) (Accu-Chek) 1 ea 02 XX ; Start 02/12/17 at 02:00 Miscellaneous Information 1 ea NOTE XX ; Start 02/11/17 at 19:30 Glucose (Glutose) 15 gm Q15M PRN PO DECREASED GLUCOSE; Start 02/11/17 at 19:30 Glucose (Glutose) 22.5 gm Q15M PRN PO DECREASED GLUCOSE; Start 02/11/17 at 19:30 Dextrose (D50w Syringe) 25 ml Q15M PRN IV DECREASED GLUCOSE; Start 02/11/17 at 19:30 Dextrose (D50w Syringe) 50 ml Q15M PRN IV DECREASED GLUCOSE; Start 02/11/17 at 19:30 Glucagon (Glucagen) 1 mg Q15M PRN IM DECREASED GLUCOSE; Start 02/11/17 at 19:30 Glucose 15 gm 15 gm Q15M PRN BUCCAL DECREASED GLUCOSE; Start 8/8/17 at 19:30 Meropenem/Sodium Chloride (Merrem 1 Gm/50 ml (Pmx)) 50 ml @ 100 mls/hr Q8 IVPB Last administered on 02/14/17 05:58; Admin Dose 100 MLS/HR; Start 02/12/17 at 14:00 Enoxaparin Sodium (Lovenox) 30 mg DAILY SC Last administered on 02/14/17 11:57 ; Admin Dose 30 MG; Start 02/14/17 at 09:30; Stop 02/16/17 at 09:00 ROGERIO BRAN MD Feb 14, 2017 12:42
[2017-02-14 14:05] VITALS: BP 122/69; RESP 16
[2017-02-14 20:00] VITALS: BP 104/51; RESP 19
[2017-02-14] MEDS: ACETAMINOPHEN 500 MG TAB PO PRN (22:28)
[2017-02-15 02:00] VITALS: BP 96/51; RESP 18
[2017-02-15] MEDS: ACCU-CHEK XX SCH (02:00)
[2017-02-15] MEDS: SOD CHLORIDE 0.45% 1,000 ML IV SCH ×2 (03:00→20:17)
[2017-02-15] MEDS: MEROPENEM 1 GM/50ML(PMX) 50 ML IVPB SCH ×3 (06:24→21:57)
[2017-02-15] MEDS: ACETAMINOPHEN 500 MG TAB PO PRN ×2 (06:28→23:15)
[2017-02-15 07:58] VITALS: BP 108/61; RESP 18
[2017-02-15] MEDS: INSULIN ASPART [NOVOLOG] 3 ML PEN SC SCH ×4 (08:00→20:15)
[2017-02-15] MEDS: PHENAZOPYRIDINE 100 MG TAB PO SCH ×3 (09:16→20:20)
[2017-02-15] MEDS: FENOFIBRATE 145 MG TAB PO SCH (09:17)
[2017-02-15] MEDS: ASCORBIC ACID 500 MG TAB PO SCH (09:17)
[2017-02-15] MEDS: GABAPENTIN 100 MG CAP PO SCH ×3 (09:17→20:17)
[2017-02-15] MEDS: CHOLECALCIFEROL 2,000 UNIT CAP PO SCH (09:17)
[2017-02-15] MEDS: LOSARTAN 25 MG TAB PO SCH (09:18)
[2017-02-15] MEDS: ENOXAPARIN 30 MG/0.3 ML SYG SC SCH (09:19)
--- NOTE | 2017-02-15 13:41 | PN ---
Date/Time of Note Date/Time of Note DATE: 02/15/17 TIME: 13:38 Assessment/Plan VTE Prophylaxis VTE Prophylaxis Intervention: ambulation Lines/Catheters [facility] Peripheral IV Urinary Cath still in place: No Assessment/Plan Chief Complaint/Hosp Course Recurrent urinary tract infection with same organism ESBL E. coli, patient did have a kidney stone during her last admission and she must have passed that , as on the repeated CT scan the stone was not seen. Since the patient still have recurrent urinary tract infection with the same organism I will plan on doing a cystoscopy and retrograde pyelograms after she has been treated with antibiotics to sterilize her urine prior to the cystoscopy.Friday 530pm Problems: Subjective 24 Hr Interval Summary Constitutional: no complaints, other (feels better) Eyes: no complaints ENT: no complaints Respiratory: no complaints Cardiovascular: no complaints Gastrointestinal: no complaints Genitourinary: No dysuria Musculoskeletal: no complaints Skin: no complaints Neurologic: no complaints Endocrine: no complaints Psychological: no complaints Immunologic: no complaints Exam/Review of Systems Vital Signs Vitals Vital Signs Date Time Temp Pulse Resp B/P Pulse Ox O2 Delivery O2 Flow Rate FiO2 02/15/17 07:58 97.6 80 18 108/61 99 02/11/17 17:44 Room Air Intake and Output 02/14/17 02/14/17 02/15/17 14:59 22:59 06:59 Intake Total 50 ml 1175 ml 800 ml Balance 50 ml 1175 ml 800 ml Exam Constitutional: alert, oriented Psych: no complaints Head: normocephalic Eyes: nl conjunctiva ENMT: nl external ears & nose Neck: supple Respiratory: normal air movement Cardiovascular: nl pulses Gastrointestinal: non-tender, soft Genitourinary - Female: No CVA tenderness Musculoskeletal: nl extremities to inspection Extremities: normal pulses Results Result Diagram: 02/11/17191202/11/171917 Results 24 hrs Laboratory Tests Test 02/14/17 17:32 02/14/17 21:13 02/15/17 08:00 02/15/17 12:01 Bedside Glucose 107 102 133 134 Medications Medications Current Medications Sodium Chloride (1/2 NS) 1,000 ml @ 50 mls/hr Q20H IV Last administered on t 18:12; Admin Dose 50 MLS/HR; Start 02/11/17 at 19:00 Phenazopyridine HCl (Pyridium) 100 mg BID PO Last administered on 02/15/17 09: 16; Admin Dose 100 MG; Start 02/11/17 at 21:00 Ascorbic Acid (Vitamin C) 500 mg DAILY PO Last administered on 02/15/17 09:17 ; Admin Dose 500 MG; Start 02/12/17 at 09:00 Zolpidem Tartrate (Ambien) 5 mg HS PRN PO INSOMNIA; Start 02/11/17 at 19:00 Fenofibrate (Tricor) 145 mg DAILY PO Last administered on 02/15/17 09:17; Admin Dose 145 MG; Start 02/12/17 at 09:00 Acetaminophen (Tylenol Tab) 500 mg Q6H PRN PO PAIN AND OR ELEVATED TEMP Last administered on 02/15/17 06:28; Admin Dose 500 MG; Start 02/11/17 at 19:00 Cholecalciferol (Vitamin D) 2,000 unit DAILY PO Last administered on 02/15/17 09:17; Admin Dose 2,000 UNIT; Start 02/12/17 at 09:00 Gabapentin (Neurontin) 100 mg TID PO Last administered on 02/15/17 09:17; Admin Dose 100 MG; Start 02/11/17 at 21:00 Losartan Potassium (Cozaar) 25 mg DAILY PO Last administered on 02/15/17 09:18 ; Admin Dose 25 MG; Start 02/12/17 at 09:00 Diagnostic Test (Pha) (Accu-Chek) 1 ea 02 XX ; Start 02/12/17 at 02:00 Miscellaneous Information 1 ea NOTE XX ; Start 02/11/17 at 19:30 Glucose (Glutose) 15 gm Q15M PRN PO DECREASED GLUCOSE; Start 02/11/17 at 19:30 Glucose (Glutose) 22.5 gm Q15M PRN PO DECREASED GLUCOSE; Start 02/11/17 at 19:30 Dextrose (D50w Syringe) 25 ml Q15M PRN IV DECREASED GLUCOSE; Start 02/11/17 at 19:30 Dextrose (D50w Syringe) 50 ml Q15M PRN IV DECREASED GLUCOSE; Start 02/11/17 at 19:30 Glucagon (Glucagen) 1 mg Q15M PRN IM DECREASED GLUCOSE; Start 02/11/17 at 19:30 Glucose 15 gm 15 gm Q15M PRN BUCCAL DECREASED GLUCOSE; Start 02/11/17 at 19:30 Meropenem/Sodium Chloride (Merrem 1 Gm/50 ml (Pmx)) 50 ml @ 100 mls/hr Q8 IVPB Last administered on 02/15/17 06:24; Admin Dose 100 MLS/HR; Start 02/12/17 at 14:00 Enoxaparin Sodium (Lovenox) 30 mg DAILY SC Last administered on 02/15/17 09:19 ; Admin Dose 30 MG; Start 02/14/17 at 09:30; Stop 02/16/17 at 09:00 CYNDI HATHAWAY MD Feb 15, 2017 13:41
[2017-02-15 14:00] VITALS: BP 111/55; RESP 16
--- NOTE | 2017-02-15 17:13 | PN ---
DATE: 02/15/2017 SUBJECTIVE: The patient has minimal flank pain. No dysuria. Pyrimidine has been discontinued. No fever or chills. Tolerating antibiotics well. PHYSICAL EXAM: GENERAL: Patient is in no acute distress. VITAL SIGNS: Temperature 97.6, blood pressure 108/61, and pulse ox 99 percent on room air. HEENT: Head normocephalic. CHEST: Clear. ABDOMEN: Soft, nontender. No hepatosplenomegaly. EXTREMITIES: No edema. IMPRESSION: Recurrent urinary tract infection (UTI) likely pyelo. Continue IV Merrem q. 8 hours for cystoscopy on Friday per Dr. Marquez. Dictated By: Gm Montesinos MD /[email or web address]/philip /Document#: [id number]
[2017-02-15 20:26] VITALS: BP 116/59; RESP 19
[2017-02-16] MEDS: ACCU-CHEK XX SCH (01:34)
[2017-02-16 02:00] VITALS: BP 130/66; RESP 19
[2017-02-16] MEDS: PANTOPRAZOLE (EC) 40 MG TAB PO SCH (05:24)
[2017-02-16] MEDS: MEROPENEM 1 GM/50ML(PMX) 50 ML IVPB SCH ×3 (05:24→21:15)
[2017-02-16 06:41] LABS: BASOPHILS % 0.4 % (0.0-2.0); EOSINOPHILS # 0.2 10^3/ul (0.0-0.5); EOSINOPHILS % 3.1 % (0.0-7.0); HEMATOCRIT 35.5 % (37.0-47.0); HEMOGLOBIN 11.2 g/dl (12.0-16.0); LYMPHOCYTES # 2.2 10^3/ul (0.8-2.9); MEAN CORPUSCULAR HGB CONC 31.5 g/dl (32.0-37.0); MEAN CORPUSCULAR VOLUME 79.2 fl (82.0-101.0); MEAN PLATELET VOLUME 10.2 fl (7.4-10.4); MONOCYTE # 0.7 10^3/ul (0.3-0.9); MONOCYTES % 9.4 % (0.0-11.0); NEUTROPHILS % 55.5 % (39.0-77.0); PLATELET COUNT 304 10^3/UL (140-415); RED BLOOD COUNT 4.48 10^6/ul (4.20-5.40); RED CELL DISTRIBUTION WIDTH 15.4 % (11.5-14.5); WHITE BLOOD COUNT 7.2 10^3/ul (4.8-10.8)
[2017-02-16 07:04] LABS: CALCIUM 9.8 mg/dl (8.4-10.2); CREATININE 0.63 mg/dl (0.44-1.00); POTASSIUM 4.2 mmol/L (3.5-5.1)
[2017-02-16 07:05] LABS: INR 1.06; PROTIME 13.8 Sec (12.2-14.2); PT RATIO 1.1
[2017-02-16 07:06] LABS: PARTIAL THROMBOPLASTIN TIME 33.5 Sec (25.0-35.0)
[2017-02-16] MEDS: INSULIN ASPART [NOVOLOG] 3 ML PEN SC SCH ×4 (07:54→20:19)
[2017-02-16] MEDS: CHOLECALCIFEROL 2,000 UNIT CAP PO SCH (08:40)
[2017-02-16] MEDS: FENOFIBRATE 145 MG TAB PO SCH (08:41)
[2017-02-16] MEDS: GABAPENTIN 100 MG CAP PO SCH ×3 (08:41→20:23)
[2017-02-16] MEDS: ASCORBIC ACID 500 MG TAB PO SCH (08:41)
[2017-02-16] MEDS: LOSARTAN 25 MG TAB PO SCH (08:41)
[2017-02-16] MEDS: ENOXAPARIN 30 MG/0.3 ML SYG SC SCH (08:42)
[2017-02-16] MEDS: PHENAZOPYRIDINE 100 MG TAB PO SCH ×2 (08:46→20:23)
[2017-02-16 08:51] VITALS: BP 113/59; RESP 18
--- NOTE | 2017-02-16 12:59 | PN ---
DATE: 02/16/2017 SUBJECTIVE: The patient has occasional flank pain. Denies any fever or chills. OBJECTIVE DATA: GENERAL: Patient is awake, alert. VITAL SIGNS: Temperature 96.6, blood pressure 113/59, O2 sats 95 percent. HEENT: No pallor, cyanosis. ABDOMEN: Negative flank tenderness. EXTREMITIES: No edema. LABORATORY: WBC count 7.2, hematocrit 35.5, PT INR is 1.06. Sodium 145, potassium 4.2, glucose levels in the normal range. Repeat urine culture is negative. IMPRESSION: Recurrent urinary tract infection, possible pyelo with Escherichia coli extended-spectrum beta-lactamase. The patient due to undergo a genitourinary workup with cysto tomorrow. Lovenox has been given for the last 2 days, we will hold Lovenox from today on. Have discussed the case with Dr. Marquez yesterday. Further recommendations per Dr. Marquez. Continue intravenous Merrem for now. Add cranberry tablets. Dictated By: Gm Montesinos MD /[email or web address]/tamie /Document#: [id number]
[2017-02-16] MEDS: ACETAMINOPHEN 500 MG TAB PO PRN ×2 (14:10→20:23)
[2017-02-16 14:32] VITALS: BP 110/56; RESP 16
[2017-02-16] MEDS: SOD CHLORIDE 0.45% 1,000 ML IV SCH ×2 (19:00→20:23)
[2017-02-16 20:21] VITALS: BP 110/70; RESP 18
[2017-02-17] VITALS (18 sets, daily range): BP systolic 109–143; BP diastolic 65–74; PULSE 79–90; RESP 10–21
[2017-02-17] MEDS: ACCU-CHEK XX SCH (01:35)
[2017-02-17] MEDS: MEROPENEM 1 GM/50ML(PMX) 50 ML IVPB SCH (05:30)
[2017-02-17] MEDS: PANTOPRAZOLE (EC) 40 MG TAB PO SCH (05:30)
--- NOTE | 2017-02-17 07:31 | CONS ---
Date/Time of Note Date/Time of Note DATE: 02/17/17 TIME: 07:26 Assessment/Plan Assessment/Plan Chief Complaint/Hosp Course 1) recurrent UTI with same organism pt will likely new prophylaxis after current treatment is completed with macrobid 100mg QD continue with IV antibiotic for 2 weeks await urology consult consider renal u/s will increase dose of merrem to [id number] when pt ready for discharge would change to ertapenem daily as outpatient 02/13 - agree with plan for cystoscopy case management referral made for home ertapenem at 1.5gm q24 thru 02/24 02/14 - repeat urine cx is NGTD cytoscopy on friday d/c pyridium 02/17 - repeat urine cx was negative change to ertapenem today and continue at 1.5gm q24 thru 02/24 after pt is done with ertapenem begin oral macrobid 100mg QD await cystoscopy later today 2) DM 3) HTN Problems: Consultation Date/Type/Reason Admit Date/Time Feb 11, 2017 at 17:03 Initial Consult Date 02/12/17 Type of Consultation: ID Referring Provider: OLGA LAMBERT MD 24 HR Interval Summary Free Text/Dictation pt to get cytoscopy today no N, V, D no SOB occasional KYLE Exam/Review of Systems Vital Signs Vitals Vital Signs Date Time Temp Pulse Resp B/P Pulse Ox O2 Delivery O2 Flow Rate FiO2 02/17/17 02:56 97.7 82 21 109/68 98 Intake and Output 02/16/17 02/16/17 02/17/17 15:00 23:00 07:00 Intake Total 50 ml 1750 ml 1130 ml Balance 50 ml 1750 ml 1130 ml Exam Constitutional: alert Head: normocephalic Eyes: nl sclera ENMT: mucosa pink and moist Respiratory: clear to auscultation Cardiovascular: regular rate and rhythm Gastrointestinal: non-tender, soft Results Result Diagram: 02/16/17 0519 02/16/17 0519 Results 24 hrs Laboratory Tests Test 02/16/17 07:36 02/16/17 12:04 02/16/17 16:45 02/16/17 20:18 Bedside Glucose 117 108 119 155 Medications Medications Current Medications Sodium Chloride (1/2 NS) 1,000 ml @ 50 mls/hr Q20H IV Last administered on 20:23; Admin Dose 50 MLS/HR; Start 02/11/17 at 19:00 Phenazopyridine HCl (Pyridium) 100 mg BID PO Last administered on 02/15/17 09: 16; Admin Dose 100 MG; Start 02/11/17 at 21:00 Ascorbic Acid (Vitamin C) 500 mg DAILY PO Last administered on 02/16/17 08:41 ; Admin Dose 500 MG; Start 02/12/17 at 09:00 Zolpidem Tartrate (Ambien) 5 mg HS PRN PO INSOMNIA; Start 02/11/17 at 19:00 Fenofibrate (Tricor) 145 mg DAILY PO Last administered on 02/16/17 08:41; Admin Dose 145 MG; Start 02/12/17 at 09:00 Acetaminophen (Tylenol Tab) 500 mg Q6H PRN PO PAIN AND OR ELEVATED TEMP Last administered on 02/16/17 20:23; Admin Dose 500 MG; Start 02/11/17 at 19:00 Cholecalciferol (Vitamin D) 2,000 unit DAILY PO Last administered on 02/16/17 08:40; Admin Dose 2,000 UNIT; Start 02/12/17 at 09:00 Gabapentin (Neurontin) 100 mg TID PO Last administered on 02/16/17 20:23; Admin Dose 100 MG; Start 02/11/17 at 21:00 Losartan Potassium (Cozaar) 25 mg DAILY PO Last administered on 02/16/17 08:41 ; Admin Dose 25 MG; Start 02/12/17 at 09:00 Diagnostic Test (Pha) (Accu-Chek) 1 ea 02 XX ; Start 02/12/17 at 02:00 Miscellaneous Information 1 ea NOTE XX ; Start 02/11/17 at 19:30 Glucose (Glutose) 15 gm Q15M PRN PO DECREASED GLUCOSE; Start 02/11/17 at 19:30 Glucose (Glutose) 22.5 gm Q15M PRN PO DECREASED GLUCOSE; Start 02/11/17 at 19:30 Dextrose (D50w Syringe) 25 ml Q15M PRN IV DECREASED GLUCOSE; Start 02/11/17 at 19:30 Dextrose (D50w Syringe) 50 ml Q15M PRN IV DECREASED GLUCOSE; Start 02/11/17 at 19:30 Glucagon (Glucagen) 1 mg Q15M PRN IM DECREASED GLUCOSE; Start 02/11/17 at 19:30 Glucose 15 gm 15 gm Q15M PRN BUCCAL DECREASED GLUCOSE; Start 02/11/17 at 19:30 Meropenem/Sodium Chloride (Merrem 1 Gm/50 ml (Pmx)) 50 ml @ 100 mls/hr Q8 IVPB Last administered on 02/17/17 05:30; Admin Dose 100 MLS/HR; Start 02/12/17 at 14:00 Pantoprazole (Protonix Tab) 40 mg DAILY@06 PO Last administered on 02/17/17 05 :30; Admin Dose 40 MG; Start 02/16/17 at 06:00 ROGERIO BRAN MD Feb 17, 2017 07:31
[2017-02-17] MEDS ORDERED: ERTAPENEM SODIUM 1 GM in SOD CHLORIDE 0.9% 100 ML IVPB SCH (08:00)
[2017-02-17] MEDS: INSULIN ASPART [NOVOLOG] 3 ML PEN SC SCH ×4 (08:00→20:20)
[2017-02-17] MEDS ORDERED: ERTAPENEM SODIUM IVPB SCH (08:00)
[2017-02-17] MEDS ORDERED: SOD CHLORIDE 0.9% IVPB SCH (08:00)
[2017-02-17] MEDS: ASCORBIC ACID 500 MG TAB PO SCH (09:02)
[2017-02-17] MEDS: LOSARTAN 25 MG TAB PO SCH (09:02)
[2017-02-17] MEDS: CHOLECALCIFEROL 2,000 UNIT CAP PO SCH (09:02)
[2017-02-17] MEDS: GABAPENTIN 100 MG CAP PO SCH ×3 (09:02→20:20)
[2017-02-17] MEDS: FENOFIBRATE 145 MG TAB PO SCH (09:02)
[2017-02-17] MEDS: ERTAPENEM SODIUM IVPB SCH (10:06)
[2017-02-17] MEDS: SOD CHLORIDE 0.9% IVPB SCH (10:06)
--- NOTE | 2017-02-17 15:48 | PN ---
DATE: 02/17/2017 SUBJECTIVE: Patient has no flank pain. She is going to have a cystoscopy today. OBJECTIVE DATA: VITAL SIGNS: Temperature 98.4, blood pressure 130/74, and O2 sat 96 percent. CHEST: Clinically clear. Negative flank tenderness. EXTREMITIES: No edema. IMPRESSION: 1. Urinary tract infection, Escherichia coli, extended-spectrum beta-lactamases (ESBL). 2. Diabetes type 2. PLAN: Proceed with a cysto by Dr. Marquez and follow his recommendations. Dictated By: Gm Montesinos MD /[email or web address]/philip /Document#: [id number]
--- NOTE | 2017-02-17 17:28 | HPN ---
Date/Time of Note Date/Time of Note DATE: 02/17/17 TIME: 17:28 Interval H&P Admission Note Pt. seen H&P reviewed: No system changes CYNDI HATHAWAY MD Feb 17, 2017 17:28
[2017-02-17] MEDS ORDERED: MIDAZOLAM 1 MG/ML 2 ML INJ ONE (17:54)
[2017-02-17] MEDS ORDERED: FENTAnyl 50 MCG/ML VIAL ONE (17:54)
[2017-02-17] MEDS ORDERED: LIDOCAINE 2% (SDV) 5 ML INJ ONE (17:57)
[2017-02-17] MEDS ORDERED: PROPOFOL 20 ML ONE (17:57)
[2017-02-17] MEDS ORDERED: IOHEXOL 300MG/ML 30 ML BTL ONE (18:03)
[2017-02-17] MEDS ORDERED: METOCLOPRAMIDE 10 MG INJ ONE (18:27)
[2017-02-17] MEDS ORDERED: ONDANSETRON 4 MG INJ ONE (18:27)
[2017-02-17] MEDS ORDERED: HYDROmorphONE (0.2 MG/ML) 10ML SYG IV PRN (18:30)
[2017-02-17] MEDS ORDERED: ONDANSETRON 4 MG INJ IV PRN (18:30)
[2017-02-17] MEDS ORDERED: FENTAnyl 50 MCG/ML VIAL IV PRN (18:30)
[2017-02-17] MEDS ORDERED: DIPHENHYDRAMINE 50 MG INJ IV PRN (18:30)
[2017-02-17] MEDS ORDERED: PROCHLORPERAZINE 10 MG INJ IV PRN (18:30)
[2017-02-17] MEDS ORDERED: MEPERIDINE 25 MG INJ IV PRN (18:30)
--- NOTE | 2017-02-17 18:52 | OPR ---
Date/Time of Note Date/Time of Note DATE: 02/17/17 TIME: 18:44 Operative Report Procedure Date: Feb 17, 2017 Preoperative Diagnosis Recurrent urinary tract infection Postoperative Diagnosis Recurrent urinary tract infection Operation Performed Cystoscopy and bilateral retrograde pyelograms Surgeon: CYNDI HATHAWAY MD Anesthesia Type: general Anesthesiologist: YOON NAVAS MD Estimated Blood Loss: none Specimens Urine for C&S Complications: no Pt Condition Post Procedure: stable Indications Recurrent urinary tract infections Operative\Procedure Findings Normal bladder and collecting system Procedure Description The patient was brought to the operating room, given general anesthesia and then positioned in the lithotomy position. Timeout was done and the patient was identified by her name, birthdate and the procedure. The genital area was then prepped and draped in the usual sterile manner. #21 Slovenian cystoscope sheath was introduced into the bladder and urine was collected for culture and sensitivity. The bladder was then inspected with the 30 lens and appeared to be normal. There were no diverticulae or areas of infection or stones or tumors inside the bladder. Fluoroscopy was done and spot films were taken between the bladder and the kidneys. The left ureteral orifice was then cannulated using an 8 Slovenian cone tip ureteral catheter and then a retrograde pyelogram was done on the left side and that showed normal ureter and normal renal pelvis and collecting system . The same was done on the right side and also the findings were normal. The ureteral catheter then was removed,the bladder was emptied and the patient was transferred to recovery room in stable and satisfactory condition CYNDI HATHAWAY MD Feb 17, 2017 18:52
--- NOTE | 2017-02-17 19:28 | RADRPT ---
Vent Rate: 72 bpm RR Interval: 0 msec [place] Interval: 192 msec QRS Duration: 96 msec QT Interval: 404 msec QTC Interval: 442 msec P-R-T [place]: 55 - -2 - 55 degrees Normal sinus rhythm Normal ECG Electronically Signed By: Myron Chance [id number]
[2017-02-18] MEDS: ACCU-CHEK XX SCH (02:00)
[2017-02-18 02:58] VITALS: BP 99/56; RESP 19
[2017-02-18] MEDS: SOD CHLORIDE 0.45% 1,000 ML IV SCH (03:06)
[2017-02-18] MEDS: PANTOPRAZOLE (EC) 40 MG TAB PO SCH (06:16)
[2017-02-18 08:00] VITALS: BP 108/67; RESP 19
[2017-02-18] MEDS: INSULIN ASPART [NOVOLOG] 3 ML PEN SC SCH ×2 (08:00→12:00)
[2017-02-18] MEDS: FENOFIBRATE 145 MG TAB PO SCH (09:02)
[2017-02-18] MEDS: GABAPENTIN 100 MG CAP PO SCH ×2 (09:02→12:40)
[2017-02-18] MEDS: SOD CHLORIDE 0.9% IVPB SCH (09:02)
[2017-02-18] MEDS: ASCORBIC ACID 500 MG TAB PO SCH (09:02)
[2017-02-18] MEDS: CHOLECALCIFEROL 2,000 UNIT CAP PO SCH (09:02)
[2017-02-18] MEDS: ERTAPENEM SODIUM IVPB SCH (09:02)
[2017-02-18] MEDS: LOSARTAN 25 MG TAB PO SCH (09:05)
--- NOTE | 2017-02-18 10:14 | RADRPT ---
PROCEDURE: X-ray fluoroscopy guidance CLINICAL INDICATION: Bilateral retrograde pyelograms, fluoroscopic guidance. TECHNIQUE: Fluoroscopic guidance was utilized for an intraoperative procedure. COMPARISON: None available FINDINGS: Fluoroscopic guidance was utilized for and intraoperative procedure. 74 seconds of fluoroscopy time was utilized for the procedure. 14 x-ray images were obtained during the procedure in progress. Nond ilated bilateral renal collecting systems are seen. IMPRESSION: X-ray fluoroscopic guidance utilized for intraoperative procedure. Nondilated bilateral renal collecting systems. Please see procedure note for details. RPTAT: AA .Surya Cota MD, MD Date Time Electronically viewed and signed by .Surya Cota MD, MD on 02/18/2017 10:14 .P/
[2017-02-18 14:00] VITALS: BP 138/71; RESP 18
--- NOTE | 2017-02-18 15:56 | DS ---
DATE OF ADMISSION: 02/11/2017 DATE OF DISCHARGE: 02/18/2017 FINAL DIAGNOSES: 1. Recurrent urinary tract infection with multi-drug resistant E. coli. 2. Diabetes mellitus type 2, well controlled. 3. Mild hypertension. 4. Degenerative joint disease. HOSPITAL COURSE: The patient is a 71-year-old lady well known to me from previous follow-up, status post multiple episodes of recurrent pyelonephritis with a relapse of this same organism namely E. coli ESBL, discharged about a month and a half ago from [facility], and has been readmitted with cloudy urine, flank pain, chills and urine cultures growing E. coli ESBL. The patient was admitted to the medical floor and was begun on [place] per Dr. Bergeron, and Dr. Bergeron recommended a evaluation which was performed by Dr. Marquez. The patient underwent cystoscopy with bilateral retrograde pyelograms which was negative, and per recommendations of Dr. Bergeron antibiotics will be switched to ertapenum 1.5 g every 24 hours through 02/24/2017, and Macrobid 100 mg p.o. daily, which should be continued for several months. The patient has also been advised to take vitamin C and cranberry tablets, and to ensure adequate p.o. intake of liquids. DISCHARGE CONDITION: Much improved. Dictated By: Gm Montesinos MD /cruzito/tremaine /Document#: [id number]
== END 2017-02-18 16:55 | disposition home or self-care (01) | DRG 690 ==
LOC: PP2 17:03
PROVIDERS: ADMIT Internal Medicine; ATTEND Internal Medicine
PROC: BT14YZZ Fluoroscopy of Kidneys, Ureters and Bladder using Other Contrast (ICD-10-PCS; 2017-02-17)
PROC: 0TJB8ZZ Inspection of Bladder, Via Natural or Artificial Opening Endoscopic (ICD-10-PCS; principal; 2017-02-17 17:30)
DX: N39.0 Urinary tract infection, site not specified (principal); E11.9 Type 2 diabetes mellitus without complications; B96.20 Unspecified Escherichia coli [E. coli] as the cause of diseases classified elsewhere; I10 Essential (primary) hypertension; M19.90 Unspecified osteoarthritis, unspecified site; Z16.12 Extended spectrum beta lactamase (ESBL) resistance; Z87.440 Personal history of urinary (tract) infections; Z87.442 Personal history of urinary calculi; Z16.35 Resistance to multiple antimicrobial drugs
CPT/HCPCS: 74420; 80048; 82962; 83036; 85025; 85610; 85730; 87040; 87081; 87086; 93005; A4310; J1335; J1650; J1815; J2185; J2250; J2405; J2765; J3010; Q9967